=== PATIENT | female | born 1945 | race Caucasian/White ===

== ENCOUNTER 2020-01-14 12:16 | Emergency (ER) | payer MEDICARE, SELFPAY ==
[2020-01-14 12:38] VITALS: BP 153/75; PULSE 56; RESP 12; TEMP 36.6; O2SAT 97; BMI 49.5
--- NOTE | 2020-01-14 12:44 | ED_ITS ---
Entered by Yenni Castanon, acting as scribe for Troy Calloway DO HPI - URI/Sore Throat General: Chief Complaint: Upper Respiratory Infection Stated Complaint: cough Time Seen by Provider: 01/14/20 12:37 Source: patient Mode of arrival: ambulatory Limitations: no limitations History of Present Illness: HPI Narrative: 74 yo Female presents to ED with complaint of cough and shortness of breath. Pt states that she has been coughing up green sputum and some blood tinged sputum a couple of times. Pt denies any fever or sore throat. Pt states that she is on blood thinners and she is afraid that her hard coughing might cause her to bust a blood vessel or cause an aneurysm. Pt states that she has had nausea and diarrhea but no vomiting. MD elicited complaint: cough Onset (ago): day(s) Consistency: constant Description of mucous: green Able to tolerate fluids by mouth: Yes Exacerbating factors: nothing Relieving factors: nothing Associated symptoms: Reports cough, diarrhea, nausea and short of breath; Deny chills, fever(s), nasal congestion, rhinorrhea, sore throat or vomiting Treatments prior to arrival: none Review of Systems General: Reports: 10 or more systems reviewed and unremarkable except in HPI and below Const: Denies: fever or chills ENMT: Denies: nasal congestion Resp: Reports: shortness of breath, productive cough and coughing up blood GI: Reports: nausea and diarrhea; Denies: vomiting [facility] ED PFSH: Medical History (Updated 01/14/20 @ 14:36 by Troy Calloway DO) Afib Diverticulitis Fibromyalgia HTN (hypertension) Sinus bradycardia Surgical History (Updated 01/14/20 @ 12:57 by Yenni Castanon) History of appendectomy History of colonoscopy History of hysterectomy Social History Smoking and tobacco status: never smoked Physical Exam Const: COMMON NORMALS: no apparent distress, average body habitus, oriented x3, no limitations, healthy appearing, alert and well nourished HENMT: COMMON NORMALS: normocephalic, head/scalp atraumatic, hearing grossly normal bilaterally, external ears normal, EAC's normal, TM's normal bilaterally, external nose normal, nasal mucous membranes and turbinates normal, moist oral mucous membranes, oropharynx normal, dentition normal and gingiva normal HEAD & SCALP: normocephalic and atraumatic NOSE: external nose normal and nasal mucous membranes and turbinates normal EXTERNAL EAR: Yes external ears normal EXTERNAL AUDITORY CANAL: EAC's normal TYMPANIC MEMBRANE: TM's normal bilaterally THROAT: posterior oropharynx abnormal erythema Eye: COMMON NORMALS: PERRL, EOMs intact bilaterally, conjunctivae normal, no scleral icterus, no papilledema, normal visual bullard by confrontation and fundi normal bilaterally CONJUNCTIVA: Yes conjunctivae normal PUPIL: Yes PERRL DIRECT OPHTHALMOSCOPY: Yes no papilledema and Yes fundi normal bilaterally Neck/C-Spine: COMMON NORMALS: full ROM, no lymphadenopathy, supple, no meningeal signs, no JVD, thyroid normal and no carotid bruits THYROID: thyroid normal Chest: COMMONS NORMALS: inspection of chest normal and palpation of chest normal Resp: COMMON NORMALS: normal respiratory effort, no retractions, no use of accessory muscles, clear to auscultation bilaterally and percussion normal AUSCULTATION: clear to auscultation bilaterally PERCUSSION: percussion normal Cardio: COMMON NORMALS: no JVD, regular rate, regular rhythm, S1 normal heart sound, S2 normal heart sound, no gallops, no clicks, no murmurs, no rub and peripheral pulses 2+ throughout RATE: regular rate RHYTHM: regular rhythm HEART SOUNDS: S1 normal and S2 normal PERIPHERAL PULSES: pulses 2+ throughout GI: COMMON NORMALS: normal to inspection, nondistended, normoactive bowel sounds, soft to palpation, non-tender, no hepatosplenomegaly, no masses and no bruits PALPATION: Yes soft and Yes no hepatosplenomegaly : COMMON NORMALS: Yes no CVA tenderness and Yes external appearance normal BLADDER/KIDNEY EXAM: Yes no CVA tenderness Back/Pelvis: COMMON NORMALS: no CVA tenderness, thoracic and lumbar spine normal to inspection, no thoracic nor lumbar tenderness, thoraco-lumbar ROM normal and straight leg raise negative bilaterally Extremity: COMMON NORMALS: normal to inspection, full ROM, normal capillary refill, no joint enlargement, no clubbing, cyanosis or edema, no calf tenderness and no pedal edema Neuro: COMMON NORMALS: oriented x3 SENSORIUM/ORIENTATION: Yes alert MENINGEAL SIGNS: Yes no meningeal signs Skin: COMMON NORMALS: no rashes or lesions noted, no wounds, skin turgor normal, no jaundice, no petechiae and no mottling GENERAL SKIN EXAM: no rashes or lesions noted and turgor normal Course Vital Signs: Vital signs: Vital Signs Temperature 97.8 F 01/14/20 12:38 Pulse Rate 58 L 01/14/20 13:39 Respiratory Rate 18 01/14/20 13:39 Blood Pressure 153/75 01/14/20 12:38 Pulse Oximetry 95 01/14/20 13:39 MDM - URI/Sore Throat Lab Data: Labs: Lab Results 01/14/20 01/14/20 01/14/20 Range/Units 13:10 13:10 13:40 WBC 7.2 (4.0-10.0) 10^3/ uL RBC 4.13 (4.1-5.3) 10^6/u L Hgb 12.5 (11.5-15.3) g/dL Hct 40.9 (37.0-47.0) % MCV 99.0 (81-99) fL MCH 30.3 (28.0-34.0) pg MCHC 30.6 (30.0-36.0) g/dL RDW 13.5 (12.1-15.1) % Plt Count 214 (130-400) 10^3/c mm MPV 9.4 (7.4-10.4) fL Neut % (Auto) 47.3 % Lymph % (Auto) 37.8 % [place] % (Auto) 10.8 % Eos % (Auto) 3.5 % Baso % (Auto) 0.3 % Neut # (Auto) 3.4 (1.8-7.7) 10^3/u L Lymph # (Auto) 2.7 (0.8-4.8) 10^3/u L [place] # (Auto) 0.8 (0.2-0.9) 10^3/u L Eos # (Auto) 0.3 (0.0-0.8) 10^3/u L Baso # (Auto) 0.0 (0.0-0.1) 10^3/u L Nucleated RBC % (a uto) 0 % Nucleated RBCs # 0.0 /100WBC Sodium 141 (136-145) mmol/L Potassium 4.4 (3.5-5.1) mmol/L Chloride 104 (98-107) mmol/L Carbon Dioxide 28 (22-29) mmol/L Anion Gap 13.4 (5-19) BUN 18 (8-23) mg/dL Creatinine 1.2 H (0.5-0.9) mg/dL Glucose 85 (65-115) mg/dL Calculated Osmolal ity 288 (285-295) mOsm/k g Calcium 9.3 (8.5-10.5) mg/dL Total Bilirubin 0.3 (0.15-1.2) mg/dL AST 19 (0-32) U/L ALT 19 (0-33) U/L Alkaline Phosphata se 74 (35-105) IU/L NT-Pro-B Natriuret Pep 249 H (0-125) pg/mL Total Protein 7.6 (6.6-8.7) g/dL Albumin 3.9 (3.5-5.2) g/dL Globulin 3.7 (1.3-4.6) g/dL Influenza Type A A g Negative (Negative) POC Influenza B Ag Negative (Negative) Imaging Data^: CXR: Radiologist's impression: [address] [address] XRay Report Signed Patient: Sandra Mcgrath #: [id number] : 8Acct#:[id number] Age/Sex: 74 / FADM Date: 01/14/20 [facility] Attending Dr: Ordering Provider/Ordering MD: Troy Calloway DO Date of Service: 01/14/20 Procedure(s): XR chest 1V portable [id number] Accession Number(s): [id number] Report Number: [id number] PROCEDURE INFORMATION: Exam: XR Chest, 1 View Exam date and time: 01/14/2020 1:49 PM Age: 74 years old Clinical indication: Cough; Additional info: Productive cough TECHNIQUE: Imaging protocol: XR of the chest Views: 1 view. COMPARISON: CR Chest 2 views* [id number] 04/20/2018 1:11 PM FINDINGS: Lungs: Hazy patchy right lower lobe infiltrates or atelectasis/air trapping. Pleural space: No pleural effusion. No pneumothorax. Heart/Mediastinum: No cardiomegaly. Bones/joints: No acute fracture. XR/XR chest 1V portable [id number] IMPRESSION: Hazy patchy right lower lobe infiltrates or atelectasis/air trapping. Dictated By:Allyson Castaneda MD Signed By:Allyson Castaneda MDSigned Date/Time:01/14/201414 DD/ 13 Discharge Plan Discharge Patient Disposition: Home, Self-Care Clinical Impression: Bronchitis, Atypical pneumonia Upper respiratory infection Qualifiers: URI type: unspecified URI Qualified Code(s): J06.9 - Acute upper respiratory infection, unspecified Condition: Stable Prescriptions: New Bactrim DS 800-160 mg tablet 1 tab PO BID 14 Days Qty: 28 RF: 0 albuterol sulfate 90 mcg/actuation HFA aerosol inhaler 2 inh INHALATION Q6H PRN (Reason: shortness of breath or wheezing) Qty: 8.5 RF: 0 No Action bupropion HCl 150 mg tablet sustained-release 12 hr 150 mg PO DAILY RF: 0 Zyrtec 10 mg Tablet 10 mg PO DAILY RF: 0 lamotrigine 25 mg tablet 50 mg PO BID RF: 0 pravastatin 80 mg tablet 80 mg PO BEDTIME RF: 0 propafenone 225 mg tablet 225 mg PO TID RF: 0 hydrocodone-acetaminophen 7.5-325 mg tablet 1 tab PO BID RF: 0 losartan 25 mg tablet 25 mg PO DAILY RF: 0 gabapentin 300 mg capsule See Rx Instructions .ROUTE .COMPLEX RF: 0 metoprolol tartrate 25 mg tablet 12.5 mg PO BID RF: 0 Pradaxa 150 mg capsule 150 mg PO BID RF: 0 Discharge Orders: Discharge Order (Routine); Ordered 01/14/20 Ordered By: Troy Calloway Referrals: Barbara Scott NP [Family Provider] - Coding Level of Care Code ED Client Support Coordinator for Chg Fwd Exam Comprehensive The documentation recorded by the Lg jeffrey Carmen, accurately reflects the service I personally performed and the decisions made by Brodie lópez Donald P, DO Jan 14, 2020 12:16
[2020-01-14 12:49] VITALS: O2SAT 96
--- NOTE | 2020-01-14 12:53 | XRR_ITS ---
PROCEDURE INFORMATION: Exam: XR Chest, 1 View Exam date and time: 01/14/2020 1:49 PM Age: 74 years old Clinical indication: Cough; Additional info: Productive cough TECHNIQUE: Imaging protocol: XR of the chest Views: 1 view. COMPARISON: CR Chest 2 views* [id number] 04/20/2018 1:11 PM FINDINGS: Lungs: Hazy patchy right lower lobe infiltrates or atelectasis/air trapping. Pleural space: No pleural effusion. No pneumothorax. Heart/Mediastinum: No cardiomegaly. Bones/joints: No acute fracture. XR/XR chest 1V portable [id number] IMPRESSION: Hazy patchy right lower lobe infiltrates or atelectasis/air trapping.
--- NOTE | 2020-01-14 12:53 | PC.NURSE ---
pt reports generalized thoracic and body pain 5/10
[2020-01-14] MEDS: sodium chloride 0.9% 500 ML 999 ML IV (13:17)
[2020-01-14 13:23] LABS: Basophils % 0.3 %; Eosinophils # 0.3 10^3/uL (0.0-0.8); Eosinophils % 3.5 %; Hematocrit 40.9 % (37.0-47.0); Hemoglobin 12.5 g/dL (11.5-15.3); Lymphocytes # 2.7 10^3/uL (0.8-4.8); Lymphocytes % 37.8 %; Mean Corpuscular HGB Conc 30.6 g/dL (30.0-36.0); Mean Corpuscular Hemoglobin 30.3 pg (28.0-34.0); Mean Platelet Volume 9.4 fL (7.4-10.4); Monocytes # 0.8 10^3/uL (0.2-0.9); Monocytes % 10.8 %; Neutrophils # 3.4 10^3/uL (1.8-7.7); Neutrophils % 47.3 %; Nucleated Red Blood Cells % 0 %; Platelet Count 214 10^3/cmm (130-400); Red Blood Count 4.13 10^6/uL (4.1-5.3); Red Cell Distribution Width 13.5 % (12.1-15.1); White Blood Count 7.2 10^3/uL (4.0-10.0)
[2020-01-14 13:32] VITALS: PULSE 50; RESP 18; O2SAT 94
[2020-01-14] MEDS: ipratropium-albuterol 3 mL Neb INHALATION (13:32)
[2020-01-14 13:39] VITALS: PULSE 58; RESP 18; O2SAT 95
[2020-01-14 13:49] LABS: Albumin Level 3.9 g/dL (3.5-5.2); Alkaline Phosphatase 74 IU/L (35-105); Anion Gap 13.4 (5-19); Aspartate Amino Transferase 19 U/L (0-32); Blood Urea Nitrogen 18 mg/dL (8-23); Calcium 9.3 mg/dL (8.5-10.5); Carbon Dioxide 28 mmol/L (22-29); Chloride 104 mmol/L (98-107); Globulin 3.7 g/dL (1.3-4.6); Glucose 85 mg/dL (65-115); NT Pro B Type Natriuretic Pept 249 pg/mL (0-125); Osmolality Calculated 288 mOsm/kg (285-295); Potassium 4.4 mmol/L (3.5-5.1); Sodium 141 mmol/L (136-145); Total Bilirubin 0.3 mg/dL (0.15-1.2); Total Protein 7.6 g/dL (6.6-8.7)
[2020-01-14 13:59] LABS: Alanine Aminotransferase 19 U/L (0-33)
[2020-01-14 14:20] LABS: Influenza A by IFA Negative (Negative); Influenza B by IFA Negative (Negative)
[2020-01-14 14:55] VITALS: BP 142/54; PULSE 52; O2SAT 93
== END 2020-01-14 14:55 | disposition home or self-care (01) ==
PROVIDERS: Emergency Provider Family Medicine; Family Provider Nurse Practitioner Family
DX: J18.9 Pneumonia, unspecified organism (principal); J40 Bronchitis, not specified as acute or chronic; J06.9 Acute upper respiratory infection, unspecified; I48.91 Unspecified atrial fibrillation; I10 Essential (primary) hypertension; Z79.01 Long term (current) use of anticoagulants
CPT/HCPCS: 12345; 36415; 71045; 80053; 83880; 85025; 87040; 87804; 94640; 96360; 96361; 96374; 99283; 99284; J2930; J7040

== ENCOUNTER → 2020-06-03 15:09 | Outpatient (BNVA) | payer MEDICARE, SELFPAY | PROVIDERS: Family Provider Nurse Practitioner Family; Visit Provider Dermatology | DX: L82.1 Other seborrheic keratosis (principal); D18.01 Hemangioma of skin and subcutaneous tissue; L70.8 Other acne; Z12.83 Encounter for screening for malignant neoplasm of skin; Z85.828 Personal history of other malignant neoplasm of skin | CPT/HCPCS: 10040; 99203 ==

== ENCOUNTER 2021-02-07 08:03 | Inpatient (IN) | payer MEDICARE, SELFPAY ==
[2021-02-07] VITALS (79 sets, daily range): BP systolic 92–135; BP diastolic 33–75; PULSE 46–79; RESP 14–23; TEMP 36.6–36.8; O2SAT 83–100; BMI 44.6
--- NOTE | 2021-02-07 08:15 | ECG_ITS ---
[facility] Test Date: 2021-02-07 Pat Name: Sandra Mcgrath Department: Room: [facility]09 Gender: Female R D Internship: : 1945 Requested By: Desmond Tyler Order Number: [id number] Reading MD: PHILL GRANGER Measurements Intervals [place] Rate: 52 P: 67 ND: 171 QRS: 76 QRSD: 97 T: 60 QT: 498 QTc: 467 Interpretive Statements SINUS BRADYCARDIA ST DEVIATION AND MODERATE T-WAVE ABNORMALITY, CONSIDER ANTERIOR ISCHEMIA [-0.1+ mV T WAVE IN V3/V4] No previous ECG available for comparison Electronically Signed On 02-07-2021 20:13:54 CDT by PHILL GRANGER [id number] f
--- NOTE | 2021-02-07 08:22 | W.ED.CHESTPA ---
HPI - Chest Pain General: Chief Complaint: Chest Pain Stated Complaint: CP/SOB Time Seen by Provider: 02/07/21 08:14 History of Present Illness: HPI narrative: 75 yo male presents complaints of chest pain radiating to her shoulders into her back that actually began yesterday this morning it woke her up from sleep she was cool and diaphoretic when EMS first encountered her with a heart rate in 39 and a blood pressure 90s over 40s patient was given half milligram of atropine did have improvement provement she has chest pain in the anterior chest wall and when she arrived here is complaining of pain everywhere. Pain is mildly reproducible with palpation across anterior chest. She states few years ago she had an angiogram done and was told it was negative. She is otherwise not had any known coronary artery disease and is nondiabetic. MD complaint: chest pain Onset (ago): minute(s) Timing of current episode: constant Onset: during rest Pain location: left chest Pain radiation: left arm Severity: severe Relieving factors: nothing Exacerbating factors: exertion and palpation Associated symptoms: Reports dyspnea and nausea; Deny abdominal pain, diaphoresis, fever(s), leg edema, palpitations, sense of impending doom, syncope or vomiting Treatment prior to arrival: none Review of Systems Const: Denies: fever(s) or diaphoresis ENMT: Denies: throat pain, ear or mastoid pain, nasal discharge or nasal congestion Card: Denies: palpitations or syncope Resp: Reports: dyspnea GI: Reports: nausea; Denies: abdominal pain or vomiting : Denies: flank pain, difficulty voiding, dysuria, urinary frequency or urinary urgency Skin/Breast: Denies: rash or pruritus PFSH ED PFSH: Medical History Afib Diverticulitis Fibromyalgia History of nonmelanoma skin cancer HTN (hypertension) Sinus bradycardia Surgical History History of appendectomy History of colonoscopy History of hysterectomy Social History Smoking and tobacco status: never smoked Physical Exam Const: COMMON NORMALS: no acute distress GENERAL APPEARANCE: cooperative and comfortable ORIENTATION/CONSCIOUSNESS: Yes awake, Yes oriented to person, Yes oriented to place and Yes oriented to time HENMT: COMMON NORMALS: normocephalic, atraumatic and hearing grossly normal bilaterally HEAD & SCALP: normocephalic and atraumatic Neck/C-Spine: COMMON NORMALS: no JVD Lymph: LYMPHATIC: no lymphadenopathy noted and no lymphedema noted Resp: COMMON NORMALS: normal respiratory effort, No retractions, No use of accessory muscles and clear to auscultation bilaterally AUSCULTATION: clear to auscultation bilaterally Cardio: COMMON NORMALS: no JVD, regular rate, regular rhythm and No murmurs present (Cardio) RATE: regular rate RHYTHM: regular rhythm GI: COMMON NORMALS: Soft to palpation and No hepatosplenomegaly present AUSCULTATION: Yes normoactive bowel sounds PALPATION: Yes Soft to palpation, No Tenderness to palpation present (GI), No Guarding due to palpation present (GI) and Yes No hepatosplenomegaly present Extremity: COMMON NORMALS: normal to inspection, capillary refill normal, no clubbing, cyanosis or edema, no calf tenderness and no pedal edema Neuro: SENSORIUM/ORIENTATION: Yes oriented to person, Yes oriented to place and Yes oriented to time Skin: COMMON NORMALS: no rashes or lesions noted GENERAL SKIN EXAM: no rashes or lesions noted Course Vital Signs: Vital signs: Vital Signs Temperature 97.9 F 02/07/21 08:04 Pulse Rate 55 L 02/07/21 10:08 Respiratory Rate 18 02/07/21 10:08 Blood Pressure 115/63 02/07/21 10:08 Pulse Oximetry 94 02/07/21 10:08 MDM - Chest Pain MDM Narrative: Medical decision making narrative: Troponin is elevated to 678. Patient given morphine with good relief of symptoms she not taken her Pradaxa propafenone or her metoprolol since yesterday. We will get a go ahead and heparinize her. She has good relief of pain with the morphine. Concerned about giving her nitro given the bradycardia and hypotension suspect that she would become profoundly hypotensive with nitroglycerin. Consuelo Smyth and with Dr. Benito Oliver is been consulted patient be admitted to the ICU. Lab Data: Labs: Lab Results 02/07/21 02/07/21 02/07/21 Range/Units 08:20 08:20 08:20 WBC 7.8 (4.0-10.0) 10^3/ uL RBC 3.92 L (4.1-5.3) 10^6/u L Hgb 12.1 (11.5-15.3) g/dL Hct 38.1 (37.0-47.0) % MCV 97.2 (81-99) fL MCH 30.9 (28.0-34.0) pg MCHC 31.8 (30.0-36.0) g/dL RDW 13.2 (12.1-15.1) % Plt Count 183 (130-400) 10^3/c mm MPV 10.2 (7.4-10.4) fL Neut % (Auto) 53.5 % Lymph % (Auto) 35.6 % [place] % (Auto) 9.3 % Eos % (Auto) 1.0 % Baso % (Auto) 0.3 % Neut # (Auto) 4.20 (1.8-7.7) 10^3/u L Lymph # (Auto) 2.8 (0.8-4.8) 10^3/u L [place] # (Auto) 0.7 (0.2-0.9) 10^3/u L Eos # (Auto) 0.1 (0.0-0.8) 10^3/u L Baso # (Auto) 0.0 (0.0-0.1) 10^3/u L Nucleated RBC % (a uto) 0 % Nucleated RBCs # 0.0 /100WBC APTT (23.9-36.7) SECO NDS Sodium 140 (136-145) mmol/L Potassium 3.9 (3.5-5.1) mmol/L Chloride 105 (98-107) mmol/L Carbon Dioxide 25 (22-29) mmol/L Anion Gap 13.9 (5-19) BUN 14 (8-23) mg/dL Creatinine 1.0 H (0.5-0.9) mg/dL GFR Calculation Not Reportable Glucose 115 (65-115) mg/dL Calculated Osmolal ity 291 (285-295) mOsm/k g Calcium 9.3 (8.5-10.5) mg/dL Total Bilirubin 0.5 (0.15-1.2) mg/dL AST 24 (0-32) U/L ALT 11 (0-33) U/L Alkaline Phosphata se 67 (35-105) IU/L Troponin T Baselin e 678 H* (0-10) ng/L Total Protein 6.4 L (6.6-8.7) g/dL Albumin 3.5 (3.5-5.2) g/dL Globulin 2.9 (1.3-4.6) g/dL 02/07/21 Range/Units 08:30 WBC (4.0-10.0) 10^3/ uL RBC (4.1-5.3) 10^6/u L Hgb (11.5-15.3) g/dL Hct (37.0-47.0) % MCV (81-99) fL MCH (28.0-34.0) pg MCHC (30.0-36.0) g/dL RDW (12.1-15.1) % Plt Count (130-400) 10^3/c mm MPV (7.4-10.4) fL Neut % (Auto) % Lymph % (Auto) % [place] % (Auto) % Eos % (Auto) % Baso % (Auto) % Neut # (Auto) (1.8-7.7) 10^3/u L Lymph # (Auto) (0.8-4.8) 10^3/u L [place] # (Auto) (0.2-0.9) 10^3/u L Eos # (Auto) (0.0-0.8) 10^3/u L Baso # (Auto) (0.0-0.1) 10^3/u L Nucleated RBC % (a uto) % Nucleated RBCs # /100WBC APTT 30.3 (23.9-36.7) SECO NDS Sodium (136-145) mmol/L Potassium (3.5-5.1) mmol/L Chloride (98-107) mmol/L Carbon Dioxide (22-29) mmol/L Anion Gap (5-19) BUN (8-23) mg/dL Creatinine (0.5-0.9) mg/dL GFR Calculation Glucose (65-115) mg/dL Calculated Osmolal ity (285-295) mOsm/k g Calcium (8.5-10.5) mg/dL Total Bilirubin (0.15-1.2) mg/dL AST (0-32) U/L ALT (0-33) U/L Alkaline Phosphata se (35-105) IU/L Troponin T Baselin e (0-10) ng/L Total Protein (6.6-8.7) g/dL Albumin (3.5-5.2) g/dL Globulin (1.3-4.6) g/dL Discharge Plan Discharge Patient Disposition: Admitted As Inpatient Admit Provider: Shahzad Novoa Clinical Impression: Non-ST elevation [place] (NSTEMI) Condition: Stable Coding Level of Care Code ED Air Conditioning Insulation Installer for g Fwd Exam Comprehensive
[2021-02-07 08:33] LABS: Basophils % 0.3 %; Eosinophils # 0.1 10^3/uL (0.0-0.8); Hematocrit 38.1 % (37.0-47.0); Hemoglobin 12.1 g/dL (11.5-15.3); Lymphocytes # 2.8 10^3/uL (0.8-4.8); Lymphocytes % 35.6 %; Mean Corpuscular HGB Conc 31.8 g/dL (30.0-36.0); Mean Corpuscular Hemoglobin 30.9 pg (28.0-34.0); Mean Corpuscular Volume 97.2 fL (81-99); Mean Platelet Volume 10.2 fL (7.4-10.4); Monocytes # 0.7 10^3/uL (0.2-0.9); Monocytes % 9.3 %; Neutrophils % 53.5 %; Nucleated Red Blood Cells % 0 %; Platelet Count 183 10^3/cmm (130-400); Red Blood Count 3.92 10^6/uL (4.1-5.3); Red Cell Distribution Width 13.2 % (12.1-15.1); White Blood Count 7.8 10^3/uL (4.0-10.0)
[2021-02-07 08:47] LABS: Alanine Aminotransferase 11 U/L (0-33); Albumin Level 3.5 g/dL (3.5-5.2); Alkaline Phosphatase 67 IU/L (35-105); Aspartate Amino Transferase 24 U/L (0-32); Blood Urea Nitrogen 14 mg/dL (8-23); Calcium 9.3 mg/dL (8.5-10.5); Carbon Dioxide 25 mmol/L (22-29); Chloride 105 mmol/L (98-107); Globulin 2.9 g/dL (1.3-4.6); Glucose 115 mg/dL (65-115); Osmolality Calculated 291 mOsm/kg (285-295); Sodium 140 mmol/L (136-145); Total Bilirubin 0.5 mg/dL (0.15-1.2); Total Protein 6.4 g/dL (6.6-8.7)
[2021-02-07 08:53] LABS: Anion Gap 13.9 (5-19); Potassium 3.9 mmol/L (3.5-5.1)
--- NOTE | 2021-02-07 08:53 | XR_ITS ---
WS: [id number] PORTABLE CHEST HISTORY: chest pain COMPARISON: 01/14/2020 Mild diffuse interstitial thickening and edema. Mild chronic emphysematous changes. No consolidation or pneumonia. No pleural effusion or pneumothorax. Cardiac size: Mildly enlarged cardiac silhouette. Mediastinum/Aorta: Mild atherosclerosis aorta. No osseous abnormality seen. XR/XR chest 1V portable [id number] IMPRESSION: Mild interstitial edema. No pneumonia.
[2021-02-07 08:54] LABS: Troponin(5th) Baseline 678 ng/L (0-10)
[2021-02-07] MEDS: clopidogrel 300 mg Tablet 600 MG PO (09:03)
[2021-02-07] MEDS: heparin 5,000 unit/mL INJ 1 mL 4000 UNIT IVP (09:04)
[2021-02-07] MEDS: aspirin 81 mg Chew Tablet 324 MG PO (09:04)
[2021-02-07 09:07] LABS: Partial Thromboplastin Time 30.3 SECONDS (23.9-36.7)
[2021-02-07] MEDS: heparin drip 25,000 UNIT/500 ML PREMIX 35.2 UNIT IV (09:10)
[2021-02-07] MEDS: morphine 4 mg/mL SDV 1 mL IVP (09:17)
--- NOTE | 2021-02-07 10:15 | ECG_ITS ---
[facility] Test Date: 2021-02-07 Pat Name: Sandra Mcgrath Department: Room: [facility]09 Gender: Female Laboratory Analyst: : 1945 Requested By: Desmond Tyler Order Number: [id number] Reading MD: PHILL GRANGER Measurements Intervals [place] Rate: 55 P: 58 AK: 189 QRS: 67 QRSD: 95 T: 80 QT: 497 QTc: 477 Interpretive Statements SINUS BRADYCARDIA WITH SINUS ARRHYTHMIA MODERATE ST DEPRESSION [0.05+ mV ST DEPRESSION] PROLONGED QT INTERVAL Compared to ECG 02/07/2021 08:06:41 ST (T wave) deviation now present Prolonged QT interval now present T-wave abnormality no longer present Possible ischemia no longer present Electronically Signed On 02-07-2021 20:18:59 CDT by PHILL GRANGER [id number]
[2021-02-07 10:51] LABS: Troponin 5 2HR 896.6 ng/L (0-10); Troponin 5 2HR Delta 218.6 ABS# (0-10)
--- NOTE | 2021-02-07 10:57 | PM.HP ---
Providers/Chief Complaint Admitting Physician: Shahzad Novoa MD Primary Care Provider: Barbara Scott NP Chief Complaint: CP/SOB History of Present Illness Sandra Mcgrath is a 75 year old female who presents to the hospital with chest discomfort. She reports she was getting her teeth worked on and tooth pulled yesterday, and required quite a bit of numbing and this was a fairly traumatic process. After she got released from the dentist around 1230 or so in her transition home she started having some chest discomfort. This came and went but eventually went away. She woke back up with it again this morning at 6 AM. She describes it as a sharp pressure in the left side of her chest with radiation down both arms. She states it is associated with shortness of breath as well as nausea. She denied any diaphoresis. She reports it got better with morphine in the emergency department. She has not had chest discomfort like this in the past. She reports no chest discomfort currently. She denies any recent illness with Covid, exposure to Covid, or vaccine for Covid. She has had no fever. She denies any cough, blood in her stool or black or tarry stool. She reports she had an angiogram, [place] at [email or web address] approximately 3 years ago and was told she did not have any flow-limiting disease. Review of Systems General: Reports: 10 or more systems reviewed and unremarkable except in HPI and below Const: Denies: fever(s) or chills Eyes: Denies: change in vision ENMT: Denies: throat pain Card: Reports: chest pain Resp: Reports: dyspnea; Denies: productive cough or non-productive cough GI: Reports: nausea; Denies: abdominal pain : Denies: flank pain Musc: Denies: neck pain Skin/Breast: Denies: rash Neuro: Denies: headache(s) Psych: Reports: depression; Denies: anxiety Endo: Denies: polyuria Uriel/Lymph: Denies: easy bruising All/Imm: Denies: urticaria Medications/Allergies Home Medications Medication Instructions Recorded Confirmed Last Taken Type bupropion HCl 150 mg PO DAILY@2100 01/14/20 02/07/21 02/06/21 History cetirizine [Zyrtec] 10 mg PO DAILY@0900 01/14/20 02/07/21 02/06/21 History dabigatran etexilate [Pradaxa] 150 mg PO BID@01/14/20 02/07/21 02/06/21 History gabapentin See Rx Instructions .ROUTE .COMPLEX 01/14/20 02/07/21 02/06/21 History hydrocodone-acetaminophen 1 tab PO QID PRN 01/14/20 02/07/21 01/14/20 History lamotrigine 50 mg PO BID@01/14/20 02/07/21 02/06/21 History losartan 25 mg PO DAILY@01/14/20 02/07/21 02/06/21 History metoprolol tartrate 12.5 mg PO BID@01/14/20 02/07/21 02/06/21 History propafenone 225 mg PO TID 01/14/20 02/07/21 02/06/21 History amoxicillin 500 mg PO TID 02/07/21 02/07/21 02/06/21 History rosuvastatin [Crestor] 10 mg PO DAILY@209902/07/21 02/07/21 02/06/21 History Allergies Allergy/AdvReac Type Severity Reaction Status Date / Time bacitracin Allergy ALGY-Rash Verified 01/14/20 12:44 [From Neosporin ([id number])] codeine Allergy ADR-Shakine Verified 01/14/20 12:44 ss neomycin Allergy ALGY-Rash Verified 01/14/20 12:44 [From Neosporin ([id number])] petrolatum,white Allergy ALGY-Rash Verified 01/14/20 12:45 [From Petroleum Jelly] polymyxin B Allergy ALGY-Rash Verified 01/14/20 12:44 [From Neosporin ([id number])] PFSH Acute PFSH: Medical History (Updated 02/07/21 @ 11:03 by Shahzad Novoa MD) Afib Carotid artery disease Diverticulitis Fibromyalgia History of nonmelanoma skin cancer HTN (hypertension) Hyperlipidemia Sinus bradycardia Surgical History (Updated 02/07/21 @ 11:00 by Shahzad Novoa MD) History of appendectomy History of colonoscopy History of hysterectomy History of partial colectomy Family History (Updated 02/07/21 @ 11:00 by Shahzad Novoa MD) Other CAD (coronary artery disease) Social History (Updated 02/07/21 @ 11:00 by Shahzad Novoa MD) Smoking and tobacco status: former smoker Alcohol intake: never Vitals/I&O/Wt Last Vital Signs Temp 97.9 F 02/07/21 08:04 Pulse 55 L 02/07/21 10:08 Resp 18 02/07/21 10:08 BP 115/63 02/07/21 10:08 Pulse Ox 94 02/07/21 10:08 Weight last 48 hrs Weight 125.645 kg Physical Exam Narrative: EXAM NARRATIVE: General exam is a white female, in no apparent distress HEENT: Pupils equally round. Oropharynx clear. Neck supple no lymphadenopathy or thyromegaly Cardiovascular bradycardic, regular, no obvious murmur Lungs clear no wheezing or crackles Abdomen is soft obese nontender with positive bowel sounds. No obvious organomegaly was deferred Extremities no cyanosis clubbing or edema, cap refill brisk Skin no rash Neuro no focal deficits. Data : 02/07/21 08:20 02/07/21 08:20 Other data: EKG demonstrates bradycardia with a rate of 52, anterior precordial lead depression as well as lateral changes. No ST elevation. Chest x-ray which I reviewed demonstrates a mild amount of edema, calcified aorta Last echocardiogram August 2018 demonstrated EF of 68% Troponin is elevated at 678, with repeat of 896 with a delta of 219 LFTs are normal A&P Assessment and plan (1) Non-ST elevation [place] (NSTEMI): Full dose anticoagulation with heparin drip Aspirin daily Morphine for breakthrough pain She has been loaded with Plavix in the emergency department Secondary to relative hypotension as well as bradycardia beta-cassidy is contraindicated Statin Check echocardiogram Cardiology consultation Check TSH, magnesium level. We will call from fluid currently as there appears to be slight amount of interstitial edema on chest x-ray. Status: Acute (2) Afib: On propafenone at home, beta-cassidy Hold medicine currently until evaluation by cardiology. Status: Acute (3) HTN (hypertension): Hold medication currently secondary to relative hypotension during this acute event Status: Acute (4) Hyperlipidemia: Continue statin, increase potency Status: Acute Additional A&P Information History of GERD. Pepcid IV for now as n.p.o. Full code Heparin for DVT prophylaxis Attestations Medical Necessity Statement*: Will need greater than 2 midnight stay for evaluation and treatment of non-ST elevation myocardial infarction. Time Spent in Patient Care: Greater than 35 minutes Coding Level of Care Code Acute Type Photography Supervisor for Yanethg Fwd Diagnoses Non-ST elevation [place] (NSTEMI) I21.4 Afib I48.91 HTN (hypertension) I10 Hyperlipidemia E78.5
--- NOTE | 2021-02-07 11:12 | USCV_ITS ---
Alcides Sandra Age: 75 Gender: F : 1945 Exam Date: 02/07/2021 15:39 Ordering Phys: Shahzad Novoa MD Technologist: Lillie Hernandez [place] [facility] [place]: [place]ST PAIN BP: / HR: 86 Rhythm: Sinus Technical Quality: Adequate MEASUREMENTS (Male / Female) Normal Values 2D ECHO LV Diastolic Diameter PLAX 4.3 cm 4.2 - 5.9 / 3.9 - 5.3 cm LV Systolic Diameter PLAX 2.7 cm LV Chamber Size 2.9 cm IVS Diastolic Thickness 1.0 cm 0.6 - 1.0 / 0.6 - 0.9 cm IVS Systolic Thickness 1.5 cm LVPW Diastolic Thickness 2.0 cm 0.6 - 1.0 / 0.6 - 0.9 cm LVPW Systolic Thickness 2.7 cm RV Chamber Size 3.5 cm LVOT Diameter 2.0 cm LV Ejection Fraction 2D Teich 66.3 % LV Ejection Fraction MOD 2C 52.3 % LV Ejection Fraction 2C AL 54.1 % LA Diameter 3.6 cm LA Width 3.4 cm LA Height 4.4 cm RA Width 3.3 cm RA Height 4.1 cm Aorta at Sinotubular Diameter 2.6 cm M-MODE LV Diastolic Diameter MM 5.8 cm 4.2 - 5.9 / 3.9 - 5.3 cm LV Systolic Diameter MM 4.3 cm LV Ejection Fraction MM Teich 52.1 % IVS Diastolic Thickness MM 0.8 cm 0.6 - 1.0 / 0.6 - 0.9 cm IVS Systolic Thickness MM 0.9 cm LVPW Diastolic Thickness MM 1.0 cm 0.6 - 1.0 / 0.6 - 0.9 cm LVPW Systolic Thickness MM 1.2 cm Aortic Annulus Diameter 3.2 cm LA Ao Ratio MM 1.3 MV E Point Septal Separation 0.9 cm DOPPLER AV Peak Velocity 155.3 cm/s LVOT Peak Velocity 124.7 cm/s AV Area Cont Eq vti 2.2 cm squared AV Area Cont Eq pk 2.5 cm squared MV Area PHT 2.5 cm squared Mitral E to A Ratio 1.1 MV E' Velocity 56.5 cm/s Mitral E to MV E' Ratio 11.1 Mitral E to LV E' Lateral Ratio 10.2 Mitral E to LV E' Septal Ratio 12.1 TR Peak Velocity 231.7 cm/s TR Peak Gradient 21.5 mmHg TV Peak E Velocity 50.0 cm/s Right Atrial Pressure 3.0 mmHg Pulmonary Artery Systolic Pressu 24.5 mmHg PV Peak Velocity 73.0 cm/s RV Acceleration Time 0.3 s RV Ejection Time 0.5 s RV AcT/ET 0.5 FINDINGS Left Ventricle Normal left ventricular size. LV systolic function is normal with EF of 55-60%. No regional wall motion abnormalities. Normal diastolic filling pattern. Right Ventricle The right ventricle is normal in size and function. Right Atrium The right atrium is normal in size. Left Atrium The left atrium is normal in size. Mitral Valve Structurally normal mitral valve without significant stenosis or prolapse. There is no mitral regurgitation. Aortic Valve Structurally normal aortic valve without significant sclerosis or stenosis. There is no aortic regurgitation. Tricuspid Valve Structurally normal tricuspid valve without significant stenosis or regurgitation.Insufficient TR jet to calculate RVSP Pulmonic Valve Structurally normal pulmonic valve without significant stenosis. There is no pulmonic regurgitation. Pericardium Normal pericardium without effusion. Aorta Normal ascending aorta dimension. CONCLUSIONS LV systolic function is normal with EF of 55-60% Diastolic function is normal No significant valvular heart disease is noted Compared to prior echo from 08/08/2018, no significant changes are noted Ronak Eckert MD (Electronically Signed) Final Date: 07 February 2021 20:09 S
[2021-02-07 11:41] LABS: Thyroid Stimulating Hormone 3.13 uIU/mL (0.27-4.20)
[2021-02-07] MEDS: famotidine 20 mg/2 mL INJ IVP ×2 (12:03→21:05)
--- NOTE | 2021-02-07 12:13 | XACV_ITS ---
Exam Room: [facility] Ht: 168 cm Wt: 126 kg BSA: 2.49 m2 Gender: Female : 1945 Any Known Allergies: Other Exam Priority: Routine Procedure(s): Procedure Description: Diagnostic procedure Procedure Description: Left Heart Catheterization Procedure Description: Left ventriculography Procedure Description: Miscellaneous Procedure Description: ACT Procedure Description: Coronary Angiography Diagnostic Cath Status: Urgent Diagnostic Findings * No significant disease noted in the Left Main, LAD, Circumflex, or RCA coronary arteries. * Coronary angiography shows right dominance. Conclusions 1. Presentation consistent with [place] ([place] with normal coronary arteries). 2. No significant disease noted in the Left Main, LAD, Circumflex, or RCA coronary arteries. 3. Normal left ventricular systolic function. Ejection fraction of 50%. Recommendations * Add plavix to pradaxa. * Order echocardiogram. * High intensity statin therapy. * Outpatient cardiology follow up. Diagnostic RX Recommendation: medical therapy and/or counseling Ventriculography Ejection Fraction: 50.0 % Pressures Phase:Rest AO : 109 / 44 ( 65 ) @ 8:03:00 AM 124 / 48 ( 82 ) @ 8:15:00 AM 128 / 52 ( 82 ) @ 8:15:00 AM LV : 126 / 5 / @ 8:11:00 AM 130 / 8 / @ 8:15:00 AM 132 / 9 / @ 8:15:00 AM Valves Phase:DefaultPhase AV : 8.0 @ 1:28:24 PM AV Mean Gradient: 9.0 @ 1:28:24 PM Clinical Evaluation EBL: 5mL-10mL Procedural Details Procedure Consent Obtained. Pre-Procedure Time Out. Identified patient by full name and date of as verbalized by the patient/guarantor. Does the consent match the physician's order: Yes. Accurate & Complete Informed Consent: Yes. Inpatient/Outpatient History & Physical on Chart: Yes. If H&P is completed, is and addenduem needed: No; If yes, is the addendum complete: N/A. Visualize and Verify Site with Patient/Guarantor: N/A. Relevant Radiology Images available: N/A. Pre-op teaching completed and patient verbalized understanding. The risks, benefits, and alternatives of sedation and/or procedure were discussed by physician. The patient agrees to continue. Procedure started. [facility] Clinical Fraility Score: 3: Managing Well. 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 Chest Pain Symptom Assessment: Typical Angina Symptoms. Cardiovascular Instability: No. Correct patient, site and procedure confirmed by cath team. PERRLA. Strong, equal hand store group manager bilaterally. Lungs clear x 5 lobes. IV Site on Arrival: 20 gauge in the right anticubital. IV Fluids: 0.9% NaCl at KVO. 0 mL infused prior to computer lab assistant. Pre Procedural Pulses: bilateral dorsalis pedis was Doppled. Pre Procedural Pulses: bilateral posterior tibial was Doppled. Pre Procedural Pulses: bilateral radial was 2+. Oxygen started at 2liters/min via nasal canula. bilateral groins was prepped with chloroprep then draped in the usual sterile fashion. right radial was prepped with chloroprep then draped in the usual sterile fashion. Physician arrived. Equipment: 6F - Radial. Cardiac Cath Pack. ACIST Manifold Kit Model BT 2000. Heparinized Saline (2 units/mL), 1000 mL bag. Baseline sample Acquired. HR: 54 BPM. Physician scrubbed in. Immediate Pre-Procedure Time Out. Correct Patient: Yes; Correct Procedure: Yes; Correct Site: Yes; Correct Patient Position: Yes; Correct Supplies: Yes; Dried Flammable Prep: Yes; Blood Products Available: N/A;. Lidocaine 1% infiltrated to the right radial. Arterial access obtained. A 5 montserratian TIG catheter in over wire. ACT drawn. Results 156 seconds. Therapeutic limits - pre-heparin administration 90-150 seconds and monitoring heparin during a vascular procedure >250 seconds. Multiple views taken of left coronary artery. Catheter redirected to the RCA. Multiple views taken of right coronary artery. Catheter removed over the exchange wire. A 5 montserratian Angled Pig catheter in over wire. EDP Sample taken: LV 126/5,23; HR: 57 BPM; SpO2: 97%. LV gram performed in JUÁREZ @ 10 mL/second for a total of 30 mL. LV gram performed in JUÁREZ @ 18 mL/second for a total of 36 mL. EDP Sample taken: LV 130/8,24; HR: 56 BPM; SpO2: 97%. Pullback taken: LV 132/9,25; AO 124/48(82); Mean: 9mmHg, Peak to Peak: 8mmHg, SEP: 26sec/min; HR: 61 BPM; SpO2: 99%. Catheter removed over the exchange wire. Physician scrubbed out. A TR Band was successful obtaining hemostatsis at the Right Radial artery insertion site. TR band placed. Hemostasis obtained. Post Procedure: Pulses reassessed and unchanged. PERRLA. Strong, equal hand store group manager bilaterally. No VTE prophylaxis required. Medication's Wasted: Lidocaine 1% = 16 mL. Medication's Wasted: Heparin = 4000 units. Medication's Wasted: Nitro = 49.9 mg. Medication's Wasted: Other = fentanyl 50 mcg. Total IV fluids: 250 mL. Contrast type used: Omnipaque 300 mgI/mL, 500 mL bottle. Post-op diagnosis: non obstructive CAD/[place] with normal coronary arteries. Complications: none. Estimated blood loss: 5mL-10mL. Procedure completed. Patient transferred by bed to ICU. Vital chart was stopped. Access Site Site: Right Radial artery Sheath Size: 5 Fr Hemostasis Method: TR Band Hemostasis Success: Successful Procedure Medications Start: 12:50 PM Stop: 12:50 PM Medication: Versed Amount: 1 mg Route: I.V. Start: 12:50 PM Stop: 12:50 PM Medication: Fentanyl Amount: 25 mcg Route: I.V. Start: 12:59 PM Stop: 12:59 PM Medication: 0.9% Saline Amount: 250 ml Route: I.V. bolus Start: 1:00 PM Stop: 1:00 PM Medication: Nitrogylcerin Amount: 100 mcg Route: I.A. Start: 1:00 PM Stop: 1:00 PM Medication: Versed Amount: 1 mg Route: I.V. Start: 1:07 PM Stop: 1:07 PM Medication: Heparin Amount: 2000 units Route: I.V. Start: 1:10 PM Stop: 1:10 PM Medication: Fentanyl Amount: 25 mcg Route: I.V. I, the attending physician, have reviewed and verified all procedure medications. Yes, all medications given per verbal order History/Risk Factors Hypertension: Yes Dyslipidemia: Yes Peripheral Arterial Disease (PAD): No Myocardial Infarction ([place]): No Obesity: No Renal Disease: No Tobacco Use: Former Prior Interventions PCI: No CABG: No Valve Surgery: No Report Signatures Finalized by Ronak Eckert MD on 02/22/2021 01:27 PM
--- NOTE | 2021-02-07 12:50 | P.CONIM_ITS ---
Providers/Reason For Consult Consulting Physican/Specialty*: Ronak Eckert MD/ Cardiology Reason for Consult*: NSTEMI Requesting Physcian: Shahzad Novoa Attending Physician: Shahzad Novoa MD Primary Care Provider: Barbara Scott NP History of Present Illness History of Present Illness 75 year old female with history of A. fib on Pradaxa who presented to the hospital with chest discomfort. She has a dental procedure yesterday and was in significant pain with the procedure. While going home she started noticing chest discomfort. She kept on having on and off chest pain and woke up early this morning with severe substernal chest pain. It was on the left side and radiated down both arms. It was associated with shortness of breath and nausea. After receiving morphine in the ER the chest pain got better. She had a significantly elevated troponin of more than 600 which trended up to 900. EKG showed sinus bradycardia. According to patient she had a prior cath done several years ago at [facility] in [place] and was told that she did not have any significant coronary artery disease. Review of Systems General: Reports: 10 or more systems reviewed and unremarkable except in HPI and below Const: Denies: fever(s) or chills Eyes: Denies: change in vision ENMT: Denies: throat pain Card: Reports: chest pain Resp: Reports: dyspnea; Denies: productive cough or non-productive cough GI: Reports: nausea; Denies: abdominal pain : Denies: flank pain Musc: Denies: neck pain Skin/Breast: Denies: rash Neuro: Denies: headache(s) Psych: Reports: depression; Denies: anxiety Endo: Denies: polyuria Uriel/Lymph: Denies: easy bruising All/Imm: Denies: urticaria Meds/Allergies Home Medications and Allergies Home Medications Medication Instructions Recorded Confirmed Last Taken Type Pradaxa 150 mg PO BID@01/14/20 02/07/21 02/06/21 History bupropion HCl 150 mg PO DAILY@2100 01/14/20 02/07/21 02/06/21 History cetirizine [Zyrtec] 10 mg PO DAILY@0900 01/14/20 02/07/21 02/06/21 History gabapentin See Rx Instructions .ROUTE .COMPLEX 01/14/20 02/07/21 02/06/21 History hydrocodone-acetaminophen 1 tab PO QID PRN 01/14/20 02/07/21 01/14/20 History lamotrigine 50 mg PO BID@01/14/20 02/07/21 02/06/21 History losartan 25 mg PO DAILY@09 01/14/20 02/07/21 02/06/21 History metoprolol tartrate 12.5 mg PO BID@01/14/20 02/07/21 02/06/21 History propafenone 225 mg PO TID 01/14/20 02/07/21 02/06/21 History amoxicillin 500 mg PO TID 02/07/21 02/07/21 02/06/21 History Crestor 20 mg PO DAILY@2100 #0 tab 02/08/21 02/07/21 02/06/21 Rx clopidogrel [Plavix] 75 mg PO DAILY 30 Days #30 tab 02/08/21 Unknown Rx Allergies Allergy/AdvReac Type Severity Reaction Status Date / Time bacitracin Allergy ALGY-Rash Verified 01/14/20 12:44 [From Neosporin ([id number])] codeine Allergy ADR-Shakine Verified 01/14/20 12:44 ss neomycin Allergy ALGY-Rash Verified 01/14/20 12:44 [From Neosporin ([id number])] petrolatum,white Allergy ALGY-Rash Verified 01/14/20 12:45 [From Petroleum Jelly] polymyxin B Allergy ALGY-Rash Verified 01/14/20 12:44 [From Neosporin ([id number])] Current Medications Current Medications Generic Name Dose Route Start Last Admin Trade Name Freq PRN Reason Stop Dose Admin Famotidine 20 mg 02/07/21 12:00 02/07/21 12:03 Famotidine 20 Mg/2 Ml Inj IVP 20 mg 0900,2100 TORREY Administration Heparin Sodium/Sodium Chloride 25,000 unit in 500 mls @ 0 mls/hr 02/07/21 09:00 02/07/21 09:10 Heparin Drip IV 14 unit/kg/hr .Q0M TORREY 35.2 mls/hr Administration Protocol Per Protocol PFSH Acute PFSH: Medical History Afib Carotid artery disease Diverticulitis Fibromyalgia History of nonmelanoma skin cancer HTN (hypertension) Hyperlipidemia Non-ST elevation [place] (NSTEMI) Sinus bradycardia Surgical History History of appendectomy History of colonoscopy History of hysterectomy History of partial colectomy Family History Other CAD (coronary artery disease) Social History Smoking and tobacco status: former smoker Alcohol intake: never Vitals/I&O/Wt Last Vital Signs Temp 98.3 F 02/07/21 10:55 Pulse 54 L 02/07/21 12:20 Resp 18 02/07/21 10:08 BP 107/36 02/07/21 12:20 Pulse Ox 93 02/07/21 12:20 Weight last 48 hrs Weight 277 lb Physical Exam Narrative: EXAM NARRATIVE: GENERAL: Awake, alert, oriented, in no acute distress. [] HEENT: Normocephalic, atraumatic, PERRLA. [] CHEST: Clear to auscultation bilaterally. [] CVS: S1, S2 normal. No murmur, rubs, gallops. Peripheral pulses palpable. [] ABDOMEN: Soft, nontender. Nondistended. Bowel sounds heard. [] NEUROVASCULAR: Awake, alert. Power 5/5 all extremities. DTR+ [] EXTREMITIES: No edema. [] A&P Assessment and plan (1) Non-ST elevation [place] (NSTEMI): Status: Acute (2) Afib: Status: Acute (3) Carotid artery disease: Status: Acute (4) HTN (hypertension): Status: Acute (5) Hyperlipidemia: Status: Acute (6) Sinus bradycardia: Status: Acute Patient has non-ST elevation [place] with a elevated troponin at significant delta. She had typical chest pain. We will proceed with left heart cath with possible percutaneous coronary intervention. Patient is n.p.o. Risks and benefits of the procedure have been discussed with the patient and the family. Patient understands the risks including bleeding, infection, abnormal heart rhythm, kidney function worsening, heart attack, stroke or . They are in agreement with proceeding with the procedure. Continue heparin drip. Continue aspirin and Plavix. Order echocardiogram. Thank you for involving us with care of this patient. We will continue to follow. Please call with questions. Coding Level of Care Code Acute Bondactor Machine Operator for Bella Leon Diagnoses Non-ST elevation [place] (NSTEMI) I21.4 Afib I48.91 Carotid artery disease I77.9 HTN (hypertension) I10 Hyperlipidemia E78.5 Sinus bradycardia R00.1
--- NOTE | 2021-02-07 12:50 | W.PM.OPSUD ---
Surgery/Procedure H&P Update DATE OF PROCEDURE: February 07, 2021 DATE H&P PERFORMED: 02/07/21 H&P UPDATE INFORMATION: I have reviewed H&P completed within last 30 days, I have examined patient prior to procedure and No changes to prior documentation PREOP DIAGNOSIS: NSTEMI PRIMARY INDICATION FOR PROCEDURE: NSTEMI PATIENT REASSESSED PRIOR TO SEDATION, WITH NO CHANGE NOTED: Yes PHYSICAL EXAM: alert, oriented x 3, clear to auscultation bilaterally and regular rate & rhythm AIRWAY EVAL/ANESTHESIA PLAN: ASA III, Monitored Anesthesia, Local Anesthesia, Risks, benefits & alternatives of sedation and/or procedure discussed and Patient agrees to continue as planned
--- NOTE | 2021-02-07 13:41 | CTR_ITS ---
PROCEDURE INFORMATION: Exam: CTA Chest With Contrast Exam date and time: 02/07/2021 4:50 PM Age: 75 years old Clinical indication: Pain; Chest pressure; Patient HX: C/O chest discomfort radiating to both arms; Additional info: Chest pain, elevated trop TECHNIQUE: Imaging protocol: Computed tomographic angiography of the chest with contrast. 3D rendering (Not supervised by radiologist): MIP and/or 3D reconstructed images were created by the technologist. Radiation optimization: All CT scans at this facility use at least one of these dose optimization techniques: automated exposure control; mA and/or kV adjustment per patient size (includes targeted exams where dose is matched to clinical indication); or iterative reconstruction. Contrast material: VISI 320; Contrast volume: 86 ml; Contrast route: INTRAVENOUS (IV); COMPARISON: CR XR chest 1V portable [id number] 02/07/2021 8:52 AM RADIATION DOSE METRICS: Total DLP (mGy-cm): 591.07 FINDINGS: Pulmonary arteries: No evidence of pulmonary embolus. Aorta: Scattered aortic calcifications. Normal aortic caliber. Lungs: No consolidation. No masses. Pleural spaces: Unremarkable. No pneumothorax. No pleural effusion. Heart: No cardiomegaly. No pericardial effusion. Lymph nodes: No enlarged lymph nodes. Bones/joints: No acute fracture. Soft tissues: Within normal limits. CT/CT angio chest PE protcl [id number] IMPRESSION: No evidence of pulmonary embolus. Radiation Dose CTDIVOL = (mGy): DLP = 591.07 (mGy-cm)
[2021-02-07] MEDS: sodium chloride 0.9% 1,000 ML 50 ML IV (13:48)
--- NOTE | 2021-02-07 14:15 | ECG_ITS ---
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: : [id number] Requested By: Desmond Tyler Order Number: [id number] Reading MD: PHILL GRANGER Measurements Intervals [place] Rate: 53 P: 63 MT: 171 QRS: 32 QRSD: 97 T: 79 QT: 443 QTc: 418 Interpretive Statements SINUS BRADYCARDIA LOW QRS VOLTAGE IN PRECORDIAL LEADS [QRS DEFLECTION < 1.0 mV IN CHEST LEADS] NONSPECIFIC ST & T-WAVE ABNORMALITY Compared to ECG 02/07/2021 09:02:10 Low QRS voltage now present T-wave abnormality now present Sinus arrhythmia no longer present ST (T wave) deviation no longer present Prolonged QT interval no longer present Electronically Signed On 02-07-2021 20:16:46 CDT by PHILL GRANGER [id number]
[2021-02-07] MEDS: propafenone 150 mg Tablet 225 MG PO ×2 (14:29→21:01)
[2021-02-07] MEDS: sodium chloride 0.9% 1,000 ML 100 ML IV (15:55)
[2021-02-07 16:03] LABS: Troponin 5 6HR 737.4 ng/L (0-10)
[2021-02-07 16:04] LABS: Troponin 5 6HR Delta 59.4 ng/L (0-12)
--- NOTE | 2021-02-07 16:30 | PC.NURSE ---
pt TR band off. 4x4 with opsite placed. VSS wll monitor
[2021-02-07] MEDS: iodixanol 320 mg/mL 100mL Btl IV (17:06)
--- NOTE | 2021-02-07 17:17 | PC.NURSE ---
Received report from ICU nurse. Patient resting in bed, vital signs stable and patient has no complaints at this time.
--- NOTE | 2021-02-07 19:26 | PC.NURSE ---
IV fluids lost upon transfer from ICU
[2021-02-07] MEDS: buPROPion SR (12 HR) 150 mg Tablet PO (21:01)
[2021-02-07] MEDS: gabapentin 300 mg Capsule 600 MG PO (21:01)
[2021-02-07] MEDS: atorvastatin 40 mg Tablet 80 MG PO (21:03)
[2021-02-07] MEDS: lamoTRIgine 100 mg Tablet 50 MG PO (21:06)
[2021-02-08] VITALS (48 sets, daily range): BP systolic 103–135; BP diastolic 40–62; PULSE 56–84; RESP 1–21; TEMP 36.9; O2SAT 88–100
[2021-02-08 05:39] LABS: Basophils % 0.3 %; Eosinophils # 0.2 10^3/uL (0.0-0.8); Eosinophils % 2.4 %; Hematocrit 35.8 % (37.0-47.0); Hemoglobin 11.2 g/dL (11.5-15.3); Lymphocytes % 28.7 %; Mean Corpuscular HGB Conc 31.3 g/dL (30.0-36.0); Mean Corpuscular Volume 99.2 fL (81-99); Mean Platelet Volume 10.2 fL (7.4-10.4); Monocytes # 0.7 10^3/uL (0.2-0.9); Monocytes % 9.4 %; Neutrophils # 4.18 10^3/uL (1.8-7.7); Neutrophils % 58.9 %; Nucleated Red Blood Cells % 0 %; Platelet Count 163 10^3/cmm (130-400); Red Blood Count 3.61 10^6/uL (4.1-5.3); Red Cell Distribution Width 13.2 % (12.1-15.1); White Blood Count 7.1 10^3/uL (4.0-10.0)
[2021-02-08 06:06] LABS: Alanine Aminotransferase 11 U/L (0-33); Albumin Level 3.2 g/dL (3.5-5.2); Alkaline Phosphatase 62 IU/L (35-105); Anion Gap 11.9 (5-19); Aspartate Amino Transferase 28 U/L (0-32); Blood Urea Nitrogen 12 mg/dL (8-23); Calcium 7.9 mg/dL (8.5-10.5); Carbon Dioxide 27 mmol/L (22-29); Chloride 108 mmol/L (98-107); Globulin 2.7 g/dL (1.3-4.6); Glucose 89 mg/dL (65-115); Osmolality Calculated 295 mOsm/kg (285-295); Potassium 3.9 mmol/L (3.5-5.1); Sodium 143 mmol/L (136-145); Total Bilirubin 0.5 mg/dL (0.15-1.2); Total Protein 5.9 g/dL (6.6-8.7)
[2021-02-08] MEDS: losartan 50 mg Tablet 25 MG PO (09:15)
[2021-02-08] MEDS: gabapentin 300 mg Capsule PO (09:15)
[2021-02-08] MEDS: lamoTRIgine 100 mg Tablet 50 MG PO (09:16)
[2021-02-08] MEDS: propafenone 150 mg Tablet 225 MG PO (09:17)
--- NOTE | 2021-02-08 09:51 | P.PN_ITS ---
Subjective Subjective: Interval history: Patient is doing well. She denies any chest pain. She underwent coronary angiogram yesterday which did not reveal any significant coronary artery disease. Echocardiogram shows normal LV systolic function. Vitals/I&O/Wt Last Vital Signs Temp 98.4 F 02/08/21 06:00 Pulse 80 02/08/21 08:53 Resp 20 H 02/08/21 06:00 BP 135/58 02/08/21 09:15 Pulse Ox 95 02/08/21 08:53 02/07/21 02/08/21 02/08/21 22:59 06:59 14:59 Intake Total 775.833 / 972.366 360 / 360 Output Total 550 / 550 Balance 225.833 / 422.366 360 / 360 Weight last 48 hrs Weight 285 lb 8 oz Weight 277 lb Physical Exam Narrative: EXAM NARRATIVE: GENERAL: Awake, alert, oriented, in no acute distress. [] HEENT: Normocephalic, atraumatic, PERRLA. [] CHEST: Clear to auscultation bilaterally. [] CVS: S1, S2 normal. No murmur, rubs, gallops. Peripheral pulses palpable. [] ABDOMEN: Soft, nontender. Nondistended. Bowel sounds heard. [] NEUROVASCULAR: Awake, alert. Power 5/5 all extremities. DTR+ [] EXTREMITIES: No edema. [] Data : 02/08/21 04:25 02/08/21 04:25 A&P Assessment and plan (1) Non-ST elevation HI (NSTEMI): Status: Acute (2) Afib: Status: Acute (3) Carotid artery disease: Status: Acute (4) HTN (hypertension): Status: Acute (5) Hyperlipidemia: Status: Acute (6) Sinus bradycardia: Status: Acute Patient had troponin elevation on presentation with significant delta however coronary angiogram did not reveal significant coronary artery disease. CTA of the chest did not reveal PE. Her symptoms were likely secondary to coronary spasm versus transient stress cardiomyopathy that has resolved. We will recommend continuing Plavix along with Pradaxa Echo reveals normal LV systolic function. Patient is ready to be discharged from cardiology standpoint. Follow-up with cardiology office. Thank you for involving us with care of this patient. Please call with questions. Attestations 2 Medical Necessity Statement*: Care expected to cross 2 midnights. 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
--- NOTE | 2021-02-08 12:43 | PM.DCS ---
Discharge Providers Date of Admission: 02/07/21 09:42 Date of Discharge: February 08, 2021 Attending Provider at Admission: Shahzad Novoa MD Attending Provider at Discharge: Luisana Tucker MD Primary Care Provider: Barbara Scott NP Diagnoses at Discharge Discharge Diagnosis (1) Non-ST elevation SD (NSTEMI): Status: Acute (2) Afib: Status: Acute (3) HTN (hypertension): Status: Acute (4) Hyperlipidemia: Status: Acute Reason for Visit Reason for Visit: CP/SOB Hospital Course Hospital Course Sandra Mcgrath is a 75 year old female who presents to the hospital on 02/07 with chest discomfort shortly after having undergone a tooth extraction yesterday around noon and then again at 6 AM on the morning of presentation. EKG showed bradycardia with a rate of 52, anterior precordial leads depression and lateral changes, no ST elevation. Troponin was elevated at 678 with a delta of 219. She was started on a heparin drip, cardiology was consulted and she underwent an angiogram on February 07, 2021 which showed no obstructive coronary artery disease. CTA of the chest did not show any PE. Echo showed an LVEF of 55 to 60% with normal diastolic function, no significant valvular heart disease. At the time of discharge patient is currently chest pain-free and eager to return home.. She is being discharged on Plavix in addition to Pradaxa with recommendations to follow-up with cardiology in 1 week. 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 Routin e Exams 02/07/21 12:13 Ordered Labs from last 24 hours 02/08/21 02/08/21 02/07/21 04:25 04:25 14:45 WBC 7.1 RBC 3.61 L Hgb 11.2 L Hct 35.8 L MCV 99.2 H MCH 31.0 MCHC 31.3 RDW 13.2 Plt Count 163 MPV 10.2 Neut % (Auto) 58.9 Lymph % (Auto) 28.7 [place] % (Auto) 9.4 Eos % (Auto) 2.4 Baso % (Auto) 0.3 Neut # (Auto) 4.18 Lymph # (Auto) 2.0 [place] # (Auto) 0.7 Eos # (Auto) 0.2 Baso # (Auto) 0.0 Nucleated RBC % (a uto) 0 Nucleated RBCs # 0.0 APTT 88.0 H D Sodium 143 Potassium 3.9 Chloride 108 H Carbon Dioxide 27 Anion Gap 11.9 BUN 12 Creatinine 1.0 H GFR Calculation Not Reportable Glucose 89 Calculated Osmolal ity 295 Calcium 7.9 L Total Bilirubin 0.5 AST 28 ALT 11 Alkaline Phosphata se 62 Troponin T Hi Sens 6Hr Troponin T Hi Sens 6Hr Delta Total Protein 5.9 L Albumin 3.2 L Globulin 2.7 02/07/21 14:45 WBC RBC Hgb Hct MCV MCH MCHC RDW Plt Count MPV Neut % (Auto) Lymph % (Auto) [place] % (Auto) Eos % (Auto) Baso % (Auto) Neut # (Auto) Lymph # (Auto) [place] # (Auto) Eos # (Auto) Baso # (Auto) Nucleated RBC % (a uto) Nucleated RBCs # APTT Sodium Potassium Chloride Carbon Dioxide Anion Gap BUN Creatinine GFR Calculation Glucose Calculated Osmolal ity Calcium Total Bilirubin AST ALT Alkaline Phosphata se Troponin T Hi Sens 6Hr 737.4 H Troponin T Hi Sens 6Hr Delta 59.4 H* Total Protein Albumin Globulin Vitals: Last Vital Signs Temp 98.4 F 02/08/21 08:00 Pulse 80 02/08/21 08:53 Resp 20 H 02/08/21 08:00 BP 118/62 02/08/21 09:15 Pulse Ox 95 02/08/21 08:53 Discharge Plan Discharge Patient Disposition: Home Condition: Stable Prescriptions: New clopidogrel [Plavix] 75 mg tablet 75 mg PO DAILY 30 Days Qty: 30 RF: 0 Continued bupropion HCl 150 mg tablet sustained-release 12 hr 150 mg PO DAILY@2100 RF: 0 cetirizine [Zyrtec] 10 mg Tablet 10 mg PO DAILY@0900 RF: 0 lamotrigine 25 mg tablet 50 mg PO BID@ RF: 0 propafenone 225 mg tablet 225 mg PO TID RF: 0 hydrocodone-acetaminophen 7.5-325 mg tablet 1 tab PO QID PRN (Reason: Pain) RF: 0 losartan 25 mg tablet 25 mg PO DAILY@ RF: 0 gabapentin 300 mg capsule See Rx Instructions .ROUTE .COMPLEX RF: 0 metoprolol tartrate 25 mg tablet 12.5 mg PO BID@ RF: 0 Pradaxa 150 mg capsule 150 mg PO BID@ RF: 0 amoxicillin 500 mg capsule 500 mg PO TID RF: 0 Changed Crestor 10 mg Tablet 20 mg PO DAILY@2099 Qty: 0 RF: 0 Discharge Orders: Discharge Order (Routine); Ordered 02/08/21 Ordered By: Luisana Tucker Discharge Diet: Cardiac Discharge Activity: Resume usual activity Discharge Attestations Time Spent in Discharge Care*: less than 30 min Quality Metrics Clinical Quality Measures During this hospital stay, did patient experience: None Coding Level of Care Code Acute [facility] note Diagnoses Non-ST elevation SD (NSTEMI) I21.4 Afib I48.91 HTN (hypertension) I10 Hyperlipidemia E78.5
== END 2021-02-08 14:30 | disposition home or self-care (01) | DRG 281 ==
LOC: ER 09:47 → ICU 10:01 → CSU 16:51
PROVIDERS: Internal Medicine; Admitting Provider Internal Medicine; Emergency Provider Family Medicine; PCP Nurse Practitioner Family; Visit Provider Student in an Organized Health Care Education/Training Program
PROC: 4A023N7 Measurement of Cardiac Sampling and Pressure, Left Heart, Percutaneous Approach (ICD-10-PCS; principal; 2021-02-07 12:30)
DX: I21.4 Non-ST elevation (NSTEMI) myocardial infarction (principal); Z68.42 Body mass index [BMI] 45.0-49.9, adult; I25.10 Atherosclerotic heart disease of native coronary artery without angina pectoris; I48.91 Unspecified atrial fibrillation; M79.7 Fibromyalgia; Z85.828 Personal history of other malignant neoplasm of skin; I10 Essential (primary) hypertension; E78.5 Hyperlipidemia, unspecified; Z90.49 Acquired absence of other specified parts of digestive tract; Z87.891 Personal history of nicotine dependence; I77.9 Disorder of arteries and arterioles, unspecified; Z79.891 Long term (current) use of opiate analgesic; Z79.01 Long term (current) use of anticoagulants; E66.9 Obesity, unspecified
CPT/HCPCS: 36415; 71045; 71275; 80053; 83735; 84443; 84484; 85025; 85730; 93005; 93306; 93452; 96365; 96375; 99291; C1769; C1887; C1894; J1644; J2250; J2270; J3010; J3490; J7030; Q9967

== ENCOUNTER 2021-03-28 13:57 | Emergency (ER) | payer MEDICARE, SELFPAY ==
[2021-03-28 14:01] VITALS: BP 152/79; PULSE 57; RESP 18; TEMP 36.4; O2SAT 95; BMI 44.4
--- NOTE | 2021-03-28 14:10 | CT_ITS ---
WS: [id number] CT FACIAL BONES HISTORY: facial swelling and pain s/p dental extraction 6 weeks ago TECHNIQUE: Images obtained from the supraorbital location through the mandible. Soft tissue and bone windows are reviewed. Coronal and sagittal reformats have also been submitted. DLP: 703.[address] scans at [facility] use at least one of these dose optimization techniques: automat ed exposure control; mA and/or kV adjustment per patient size (includes targeted exams where dose is matched to clinical indication); or iterative reconstruction. COMPARISON: None available. No facial bone fractures or displacement. No air-fluid levels in the sinuses. No fluid collections or abscess identified. There is no significant amount of inflammation surrounding the mandible or maxil la. There is evidence for dental caries within the axilla at the mandible. CT/CT facial bones wo con* 50020 IMPRESSION: 1. No significant inflammatory changes within the soft tissues around the face . 2. No fractures.
--- NOTE | 2021-03-28 14:50 | ED_ITS ---
HPI - Dental/Oral General: Chief complaint: Dental/Oral Stated complaint: SWELLING Time Seen by Provider: 03/28/21 13:59 Source: patient Mode of arrival: ambulatory Limitations: no limitations History of Present Illness: HPI Narrative: 75-year-old female patient who had one of her top teeth removed about 6 weeks ago. She has had intermittent pain in her upper jaw since then. She has been on antibiotics for it after this tooth was taken out. Shortly after the tooth extraction she had a non-STEMI. Today she woke up today and she had swelling along her upper jawline anteriorly and facial swelling. She still has significant pain. She is here to be evaluated for this as she is concerned. No fever, no drainage from her mouth. MD Complaint: tooth pain Duration: constant Relieving factors: nothing Exacerbating factors: nothing Associated symptoms: Reports gum swelling; Denies ear or mastoid pain, fever(s), odynophagia, sore throat or tongue swelling Treatment prior to arrival: none Review of Systems General: Reports: 10 or more systems reviewed and unremarkable except in HPI and below Const: Denies: fever(s) ENMT: Denies: odynophagia or ear or mastoid pain All/Imm: Denies: tongue swelling PFSH ED PFSH: Medical History Afib Carotid artery disease Diverticulitis Fibromyalgia History of nonmelanoma skin cancer HTN (hypertension) Hyperlipidemia Non-ST elevation [place] (NSTEMI) Sinus bradycardia Surgical History History of appendectomy History of colonoscopy History of hysterectomy History of partial colectomy Family History Other CAD (coronary artery disease) Social History Smoking and tobacco status: former smoker Alcohol intake: never Physical Exam Const: COMMON NORMALS: no acute distress, average body habitus, patient oriented x3, no limitations, healthy appearing, alert and well nourished HENMT: COMMON NORMALS: normocephalic, atraumatic and moist oral mucous membranes HEAD & SCALP: normocephalic and atraumatic TEETH & GINGIVA: Yes abnormal tooth and associated gingiva and Yes gingiva abnormal diffusely erythematous and tender Eye: COMMON NORMALS: Equal, round and reactive pupils present, EOMs intact bilaterally, conjunctivae normal and no scleral icterus CONJUNCTIVA: Yes conjunctivae normal PUPIL: Yes Equal, round and reactive pupils present Neck/C-Spine: COMMON NORMALS: no meningeal signs and no JVD Resp: COMMON NORMALS: normal respiratory effort, No retractions, No use of accessory muscles, clear to auscultation bilaterally and percussion normal AUSCULTATION: clear to auscultation bilaterally PERCUSSION: percussion normal Cardio: COMMON NORMALS: no JVD, regular rate, regular rhythm, S1 normal heart sound present, S2 normal heart sound present, No gallops present (Cardio), No clicks present (Cardio), No murmurs present (Cardio), No rub (Cardio) and Peripheral pulses 2+ throughout RATE: regular rate RHYTHM: regular rhythm HEART SOUNDS: S1 normal heart sound present and S2 normal heart sound present PERIPHERAL PULSES: Peripheral pulses 2+ throughout GI: COMMON NORMALS: Normal to inspection, nondistended, normoactive bowel sounds present, Soft to palpation, non-tender, No hepatosplenomegaly present, no masses and no bruits PALPATION: Yes Soft to palpation and Yes No hepatosplenomegaly present Neuro: COMMON NORMALS: patient oriented x3 SENSORIUM/ORIENTATION: Yes alert MENINGEAL SIGNS: Yes no meningeal signs Course Reevaluation(s): Reevaluation #1: Discussed imaging findings with her. Negative for acute findings. We will discharge her home with a prescription for Augmentin on discharge because of corticosteroids. I talked to her about chlorhexidine mouthwash and she states that she has some at home but has not been using it. She is advised to use heat as it had been prescribed to her. She voiced understanding and is in agreement with the plan. Time: 14:50 Vital Signs: Vital signs: Vital Signs Temperature 97.6 F 03/28/21 14:01 Pulse Rate 60 03/28/21 15:09 Respiratory Rate 16 03/28/21 15:09 Blood Pressure 105/59 03/28/21 15:09 Pulse Oximetry 96 03/28/21 15:09 MDM - Dental/Oral MDM Narrative: Medical decision making narrative: 75-year-old female patient with clinical features consistent with uncomplicated gingivitis. She is discharged home with a prescription for oral antibiotics and oral corticosteroids. She is to follow-up with her primary care provider and her dentist. Medical Records: Attestation: I reviewed the patient's medical records. Imaging Data^: Other CT: Attestation: I personally reviewed and interpreted this imaging study as follows: Radiologist's impression: [address] [id number] Scan ReportSigned Patient: Sandra Mcgrath #: [id number]: [id number]#:[id number]/Sex: 75 / FADM Date: 03/28/21Loc: ERRoom/Bed:Attending Dr: Ordering Provider/Ordering MD: August Barraza MD, [facility] [place] Date of Service: 03/28/21 Procedure(s): CT facial bones wo con* [id number] Accession Number(s): [id number] Report Number: [id number] WS: [id number] CT FACIAL BONES HISTORY: facial swelling and pain s/p dental extraction 6 weeks ago TECHNIQUE: Images obtained from the supraorbital location through the mandible. Soft tissue and bone windows are reviewed. Coronal and sagittal reformats have also been submitted. DLP: 703.[address] scans at [facility] use at least one of these dose optimization techniques: automated exposure control; mA and/or kV adjustment per patient size (includes targeted exams where dose is matched to clinical indication); or iterative reconstruction. COMPARISON: None available. No facial bone fractures or displacement. No air-fluid levels in the sinuses. No fluid collections or abscess identified. There is no significant amount of inflammation surrounding the mandible or maxilla. There is evidence for dental caries within the axilla at the mandible. CT/CT facial bones wo con* [id number] IMPRESSION: 1. No significant inflammatory changes within the soft tissues around the face. 2. No fractures. Dictated By:Sarah Astudillo DOSigned By:Sarah Astudillo DOSigned Date/Time:03/28/21 1438DD/ 1435 Discharge Plan Discharge Patient Disposition: Home Clinical Impression: Gingivitis Condition: Stable Prescriptions: New Augmentin 875-125 mg tablet 1 tab PO BID Qty: 14 RF: 0 prednisone 20 mg tablet 20 mg PO DAILY 3 Days Qty: 3 RF: 0 Continued bupropion HCl 150 mg tablet sustained-release 12 hr 150 mg PO DAILY@2100 RF: 0 cetirizine [Zyrtec] 10 mg Tablet 10 mg PO DAILY@0900 RF: 0 lamotrigine 25 mg tablet 50 mg PO BID@, RF: 0 propafenone 225 mg tablet 225 mg PO TID RF: 0 hydrocodone-acetaminophen 7.5-325 mg tablet 1 tab PO QID PRN (Reason: Pain) RF: 0 losartan 25 mg tablet 25 mg PO DAILY@09 RF: 0 gabapentin 300 mg capsule See Rx Instructions .ROUTE .COMPLEX RF: 0 metoprolol tartrate 25 mg tablet 12.5 mg PO BID@ RF: 0 Pradaxa 150 mg capsule 150 mg PO BID@ RF: 0 rosuvastatin [Crestor] 10 mg Tablet 20 mg PO DAILY@2099 Qty: 0 RF: 0 Discharge Orders: Discharge ED (Routine); Ordered 03/28/21 Ordered By: August Barraza Referrals: Barbara Scott, FIELD CROP HARVEST WORKER [Primary Care Provider] - 1-3 days Discharge Diet: Usual diet Discharge Activity: Increase activity as tolerated Patient Instructions: Gingivitis (ED) Activity Restrictions/Additional Instructions: Return for any new or worsening symptoms. Follow-up with your primary care provider within 3 days. Take the medications as prescribed. Use your chlorhexidine mouthwash as prescribed to you. Follow-up with your dentist as soon as you can. Coding Level of Care Code ED Vice President Investor Relations for Bella Leon
[2021-03-28 15:09] VITALS: BP 105/59; PULSE 60; RESP 16; O2SAT 96
== END 2021-03-28 15:11 | disposition home or self-care (01) ==
PROVIDERS: Emergency Provider Family Medicine; PCP Nurse Practitioner Family
DX: K05.10 Chronic gingivitis, plaque induced (principal); I48.91 Unspecified atrial fibrillation; I10 Essential (primary) hypertension; E78.5 Hyperlipidemia, unspecified; I25.2 Old myocardial infarction; Z87.891 Personal history of nicotine dependence
CPT/HCPCS: 70486; 99282

== ENCOUNTER 2021-05-15 15:48 | Emergency (ER) | payer MEDICARE, SELFPAY ==
[2021-05-15 16:15] VITALS: BP 166/73; PULSE 62; RESP 16; TEMP 36.7; O2SAT 91; BMI 36.3
--- NOTE | 2021-05-15 17:17 | W.ED.DENTAL ---
HPI - Dental/Oral General: Chief complaint: Dental/Oral Stated complaint: oral surgery today, bleeding,high BP, heart issues Time Seen by Provider: 05/15/21 17:05 History of Present Illness: HPI Narrative: Patient had her teeth removed today and has had some persistent oozing of blood. Patient does take Pradaxa routinely. Patient appears well. Patient appears in mild to moderate pain. Patient is maintaining her airway and secretions well. Review of Systems General: Reports: 10 or more systems reviewed and unremarkable except in HPI and below ENMT: Reports: other (bleeding of the gumline post dental surgery) PFS ED PFSH: Medical History (Reviewed 03/28/21 @ 23:20 by August Barraza [place] [facility] [place] Afib Carotid artery disease Diverticulitis Fibromyalgia History of nonmelanoma skin cancer HTN (hypertension) Hyperlipidemia Non-ST elevation [place] (NSTEMI) Sinus bradycardia Surgical History History of appendectomy History of colonoscopy History of hysterectomy History of partial colectomy Family History Other CAD (coronary artery disease) Social History (Reviewed 03/28/21 @ 23:20 by August Barraza [place], [facility] [place] Smoking and tobacco status: former smoker Alcohol intake: never Physical Exam Const: COMMON NORMALS: no acute distress and patient oriented x3 GENERAL APPEARANCE: cooperative HENMT: COMMON NORMALS: normocephalic and Normal external nose present HEAD & SCALP: normal to inspection and normocephalic NOSE: Normal external nose present MOUTH: other (Patient has sutured gumline. Oozing of blood but no significant bleeding.) THROAT: posterior oropharynx normal Eye: GENERAL EYE: appearance normal, both eyes and all related structures Neck/C-Spine: COMMON NORMALS: full ROM Lymph: LYMPHATIC: no lymphadenopathy noted Chest: COMMONS NORMALS: normal inspection of the chest Resp: COMMON NORMALS: normal respiratory effort EFFORT & INSPECTION: Yes able to speak in complete sentences Cardio: COMMON NORMALS: regular rate and regular rhythm RATE: regular rate RHYTHM: regular rhythm GI: COMMON NORMALS: non-tender Back/Pelvis: COMMON NORMALS: thoracic and lumbar spine normal to inspection Extremity: COMMON NORMALS: normal to inspection Neuro: COMMON NORMALS: patient oriented x3 and moves all extremities Psych: COMMON NORMALS: mental status grossly normal and cooperative Skin: COMMON NORMALS: no rashes or lesions noted GENERAL SKIN EXAM: no rashes or lesions noted Course Vital Signs: Vital signs: Vital Signs Temperature 98.1 F 05/15/21 16:15 Pulse Rate 62 05/15/21 16:15 Respiratory Rate 16 05/15/21 17:39 Blood Pressure 166/73 05/15/21 16:15 Pulse Oximetry 91 05/15/21 16:15 MDM - Dental/Oral MDM Narrative: Medical decision making narrative: Patient comes into the ER for concerns of bleeding post surgery. Patient had her teeth removed today and the oral surgeon and has had some persistent bleeding since leaving surgeon's office. The surgeon recommended patient come to the emergency room for evaluation. Exam notes some mild bleeding from the gumline, no abnormal bleeding is noted. Patient is maintaining airway and secretions. Patient does take Pradaxa but had not held the medication prior to surgery. Differential diagnosis includes anticoagulation, anemia, surgical hemorrhage. CBC was good with a normal hemoglobin hematocrit. Reviewed exam with patient with recommendations for continuing to hold pressure in case because further oozing. No significant hemorrhage was noted. Recommended lots of fluids and holding Plavix and Pradaxa for the next 2 to 3 days until bleeding had stopped for least 12 to 24 hours. Patient and family member both reported understanding. Lab Data: Labs: Lab Results 05/15/21 05/15/21 Range/Units 18:33 18:33 WBC 12.0 H (4.0-10.0) 10^3/ uL RBC 4.62 (4.1-5.3) 10^6/u L Hgb 14.1 (11.5-15.3) g/dL Hct 45.9 (37.0-47.0) % MCV 99.4 H (81-99) fL MCH 30.5 (28.0-34.0) pg MCHC 30.7 (30.0-36.0) g/dL RDW 13.1 (12.1-15.1) % Plt Count 203 (130-400) 10^3/c mm MPV 9.4 (7.4-10.4) fL Neut % (Auto) 82.0 % Lymph % (Auto) 11.5 % [place] % (Auto) 5.5 % Eos % (Auto) 0.4 % Baso % (Auto) 0.3 % Neut # (Auto) 9.85 H (1.8-7.7) 10^3/u L Lymph # (Auto) 1.4 (0.8-4.8) 10^3/u L [place] # (Auto) 0.7 (0.2-0.9) 10^3/u L Eos # (Auto) 0.1 (0.0-0.8) 10^3/u L Baso # (Auto) 0.0 (0.0-0.1) 10^3/u L Nucleated RBC % (a uto) 0 % Nucleated RBCs # 0.0 /100WBC PT 15.60 H (12.1-14.9) SECO NDS INR 1.21 H (0.8-1.2) Discharge Plan Discharge Patient Disposition: Home Clinical Impression: Postoperative bleeding from mouth Condition: Stable Prescriptions: No Action bupropion HCl 150 mg tablet sustained-release 12 hr 150 mg PO DAILY@2099 RF: 0 cetirizine [Zyrtec] 10 mg Tablet 10 mg PO DAILY@0900 RF: 0 lamotrigine 25 mg tablet 50 mg PO BID@ RF: 0 propafenone 225 mg tablet 225 mg PO TID RF: 0 hydrocodone-acetaminophen 7.5-325 mg tablet 1 tab PO QID PRN (Reason: Pain) RF: 0 losartan 25 mg tablet 25 mg PO DAILY@09 RF: 0 gabapentin 300 mg capsule See Rx Instructions .ROUTE .COMPLEX RF: 0 metoprolol tartrate 25 mg tablet 12.5 mg PO BID@ RF: 0 Pradaxa 150 mg capsule 150 mg PO BID@ RF: 0 rosuvastatin [Crestor] 10 mg Tablet 20 mg PO DAILY@2100 Qty: 0 RF: 0 Augmentin 875-125 mg tablet 1 tab PO BID Qty: 14 RF: 0 Discharge Orders: Discharge ED (Routine); Ordered 05/15/21 Ordered By: David Finn Referrals: Barbara Scott, MARGOT [Primary Care Provider] - Discharge Diet: Usual diet Discharge Activity: Increase activity as tolerated Patient Instructions: Opioid Safety, Wound Care (General) Activity Restrictions/Additional Instructions: Sleep sitting up in recliner. Change gauze as it becomes soiled. Continue with gauze and pressure to the wounds. Drink plenty of water. Hold Pradaxa for the next 3 days. Continue with routine care otherwise as instructed. Follow-up with surgeon as needed. Return to the ER for worsening symptoms or new concerns. Coding Level of Care Code ED Cook Fish Eggs for Bella Fwjarrod Exam Comprehensive
[2021-05-15 17:39] VITALS: RESP 16
[2021-05-15] MEDS: morphine 4 mg/mL SDV 1 mL 2 MG IM (17:39)
[2021-05-15] MEDS: dexamethasone 10 mg/mL INJ IM (17:40)
--- NOTE | 2021-05-15 18:40 | PC.NURSE ---
pt is sitting in a wheelchair in the vertical flow area with family at bedside. Lab has completed the lab draw for the pt.
[2021-05-15 18:43] LABS: Basophils % 0.3 %; Eosinophils # 0.1 10^3/uL (0.0-0.8); Eosinophils % 0.4 %; Hematocrit 45.9 % (37.0-47.0); Hemoglobin 14.1 g/dL (11.5-15.3); Lymphocytes # 1.4 10^3/uL (0.8-4.8); Lymphocytes % 11.5 %; Mean Corpuscular HGB Conc 30.7 g/dL (30.0-36.0); Mean Corpuscular Hemoglobin 30.5 pg (28.0-34.0); Mean Corpuscular Volume 99.4 fL (81-99); Mean Platelet Volume 9.4 fL (7.4-10.4); Monocytes # 0.7 10^3/uL (0.2-0.9); Monocytes % 5.5 %; Neutrophils # 9.85 10^3/uL (1.8-7.7); Nucleated Red Blood Cells % 0 %; Platelet Count 203 10^3/cmm (130-400); Red Blood Count 4.62 10^6/uL (4.1-5.3); Red Cell Distribution Width 13.1 % (12.1-15.1)
--- NOTE | 2021-05-15 18:46 | PC.NURSE ---
pt continues to change out her the gauze in her mouth. bleeding has slowed since her arrival
--- NOTE | 2021-05-15 18:48 | PC.NURSE ---
pt has moved to the recliner at this time
[2021-05-15 18:57] LABS: INR 1.21 (0.8-1.2)
[2021-05-15 18:58] VITALS: BP 160/75; PULSE 66; RESP 16; TEMP 36.8; O2SAT 92
[2021-05-15 18:58] LABS: Partial Thromboplastin Time 34.8 SECONDS (23.9-36.7)
[2021-05-15 19:13] LABS: Alanine Aminotransferase 15 U/L (0-33); Albumin Level 4.1 g/dL (3.5-5.2); Alkaline Phosphatase 79 IU/L (35-105); Anion Gap 15.5 (5-19); Aspartate Amino Transferase 20 U/L (0-32); Blood Urea Nitrogen 12 mg/dL (8-23); Calcium 9.1 mg/dL (8.5-10.5); Carbon Dioxide 27 mmol/L (22-29); Chloride 104 mmol/L (98-107); Globulin 3.6 g/dL (1.3-4.6); Glucose 104 mg/dL (65-115); Osmolality Calculated 294 mOsm/kg (285-295); Potassium 4.5 mmol/L (3.5-5.1); Sodium 142 mmol/L (136-145); Total Bilirubin 0.4 mg/dL (0.15-1.2); Total Protein 7.7 g/dL (6.6-8.7)
== END 2021-05-15 19:06 | disposition home or self-care (01) ==
PROVIDERS: Physician Assistant; Emergency Provider Nurse Practitioner Family; PCP Nurse Practitioner Family
DX: K91.870 Postprocedural hematoma of a digestive system organ or structure following a digestive system procedure (principal); I10 Essential (primary) hypertension; E78.5 Hyperlipidemia, unspecified; I25.2 Old myocardial infarction; Z87.891 Personal history of nicotine dependence
CPT/HCPCS: 36415; 80053; 85025; 85610; 85730; 96372; 99283; J1100; J2270

== ENCOUNTER 2022-01-01 08:58 | Outpatient (CLI) | payer MEDICARE, SELFPAY ==
--- NOTE | 2022-01-01 09:23 | XR_ITS ---
WS: [email or web address] SCREENING DEXA SCAN [employer] CLINICAL INFORMATION: AGE RELATED OSTEOPOROSIS WITHOUT CURRENT PATHOLOGICAL FRACTU COMPARISON: 018 FINDINGS: The L1-L4 bone mineral density measures 1.783 g/cm2. This corresponds to a T score score of 5.0 and Z score of 5.6. Left femoral neck bone mineral density measures 1.321 g/cm2. This corresponds to a T score of 2.5 and Z score of 3.3. Right femoral neck bone mineral density measures 1.256 g/cm2. This corresponds to a T score 2.0of and Z score of 2.8. Mean femoral neck bone mineral density measures 1.288 g/cm2. This corresponds to a T score of 2.2 and Z score of 3.1. XR/XR DEXA axial skeleton* [id number] IMPRESSION: Normal bone mineralization. Patient's FRAX calculated 10 year probability for major osteoporotic fracture i s 5.8 % and osteoporotic hip fracture is 0.3%.
== END 2022-01-01 08:59 | disposition home or self-care (01) ==
PROVIDERS: PCP Nurse Practitioner Family; Visit Provider Nurse Practitioner Family
DX: M81.0 Age-related osteoporosis without current pathological fracture (principal)
CPT/HCPCS: 77080

== ENCOUNTER 2022-01-15 14:49 | Outpatient (CLI) | payer MEDICARE, SELFPAY ==
--- NOTE | 2022-01-15 15:05 | XR_ITS ---
WS: [email or web address] [id number] REASON FOR EXAM: CLAVICLE ENLARGEMENT FINDINGS: No fracture or focal bone lesion. Mild narrowing of the acromioclavicular joint with subchondral sclerosis and large osteophytes, most notably at the superior margin of the joint from the clavicle. No soft tissue abnormality identified. XR/[place] [id number] IMPRESSION: Osteoarthritis of the right acromioclavicular joint as above.
== END 2022-01-15 14:50 | disposition home or self-care (01) ==
LOC: RAD 14:57
PROVIDERS: PCP Nurse Practitioner Family; Visit Provider Nurse Practitioner Family
DX: M89.319 Hypertrophy of bone, unspecified shoulder (principal); M19.011 Primary osteoarthritis, right shoulder
CPT/HCPCS: 73000

== ENCOUNTER → 2022-03-02 14:13 | Outpatient (BNVA) | payer MEDICARE, SELFPAY | PROVIDERS: PCP Nurse Practitioner Family; Visit Provider Specialist | DX: G31.84 Mild cognitive impairment of uncertain or unknown etiology (principal); R26.89 Other abnormalities of gait and mobility | CPT/HCPCS: 96116; 99204; 99205 ==

== ENCOUNTER → 2022-07-13 12:20 | Outpatient (BNVA) | payer MEDICARE, SELFPAY | PROVIDERS: PCP Nurse Practitioner Family; Visit Provider Internal Medicine | DX: R00.1 Bradycardia, unspecified (principal); E78.5 Hyperlipidemia, unspecified; I10 Essential (primary) hypertension; I77.9 Disorder of arteries and arterioles, unspecified; I48.91 Unspecified atrial fibrillation; Z87.891 Personal history of nicotine dependence; I25.2 Old myocardial infarction | CPT/HCPCS: 99214 ==

== ENCOUNTER 2022-08-10 11:32 | Outpatient (CLI) | payer MEDICARE, SELFPAY ==
--- NOTE | 2022-08-10 12:17 | MM_ITS ---
WS: [email or web address] BILATERAL SCREENING DIGITAL TOMOSYNTHESIS MAMMOGRAM WITH CAD HISTORY: SCREENING COMPARISON: 06/19/2019 and 01/24/2018 Bilateral CC and MLO views with tomosynthesis and synthetic mammography submitted. Computer aided det ection analyzed. Breast composition: There are scattered areas of fibroglandular density. No suspicious masses, microc alcifications or architectural distortion. Rodlike calcifications are stable in the anterior mid LEFT breast. Benign-appearing lymph nodes. MM/[place] [id number] IMPRESSION: BI-RADS: 2-Benign FOLLOW UP: 1 Year Follow-up
== END 2022-08-10 11:33 | disposition home or self-care (01) ==
LOC: RAD 11:36
PROVIDERS: PCP Nurse Practitioner Family; Visit Provider Nurse Practitioner Family
DX: Z12.31 Encounter for screening mammogram for malignant neoplasm of breast (principal)
CPT/HCPCS: 77063; 77067

== ENCOUNTER 2023-02-04 12:22 | Outpatient (CLI) | payer MEDICARE, SELFPAY ==
--- NOTE | 2023-02-04 13:14 | XR_ITS ---
WS: [email or web address] XR lumbar spine 2-3V* [id number] REASON FOR EXAM: LOW BACK PAIN FINDINGS: No significant scoliosis. Normal lordosis. No significant vertebral body abnormality. Mild to moderate narrowing of the disc spaces T12-L3 with moderate anterior vertebral body osteophyto sis. The disc spaces from L3 to S1 are intact and relatively well-preserved. No spondylolysis. No significant spondylolisthesis. 2 mm of anterolisthesis of L2 in relation to L1 and L3 in relation to L2. XR/XR lumbar spine 2-3V* [id number] IMPRESSION: Degenerative spondylosis as above. Relatively stable compared to 02/14/2019.
== END 2023-02-04 12:23 | disposition home or self-care (01) ==
PROVIDERS: PCP Nurse Practitioner Family; Visit Provider Nurse Practitioner Family
DX: M47.816 Spondylosis without myelopathy or radiculopathy, lumbar region (principal)
CPT/HCPCS: 72100

== ENCOUNTER 2023-02-25 06:42 | Emergency (ER) | payer MEDICARE, SELFPAY ==
[2023-02-25 06:43] VITALS: BP 88/72; PULSE 57; RESP 16; TEMP 36.5; O2SAT 99; BMI 41.8
--- NOTE | 2023-02-25 06:46 | ED_ITS ---
HPI - Fall General: Chief Complaint: Fall Stated Complaint: FALL Time Seen by Provider: 02/25/23 06:45 Source: patient Mode of arrival: EMS History of Present Illness: 77-year-old female who presents to the emergency room with complaints of low back pain and knee pain. Patient is on gabapentin a few weeks ago was increased from 303 times a day to 600mg, 3 times a day. She been doing relatively well with the change until last night when she took a double dose in the evening a total of 1200 mg in a single dose. She states she felt high . Last night around 10:00 while she was using her walker to ambulate her walker caught on something and she stumbled and fell. She was on the ground for about 2 hours before family member helped her to bed. She remained in bed until this morning when she went to try to get up to go to the bathroom with assistance of another family member she was unable to do so due to bilateral knee and low back pain. She denies striking her head she denies any back pain or head pain. There is never any loss of consciousness. MD complaint: fall Onset (ago): hour(s) Fall from: standing Place fall occurred: home Loss of consciousness: None Prolonged down time: hour(s) (2) Context: tripped/slipped Location of injury: back Location of injury - extremities: Bilateral: knee Associated symptoms-after fall: Denies abdominal pain, chest pain, confusion, difficulty walking, headache(s), hematuria, lightheadedness, neck pain, numbness, short of breath, vertigo or weakness Review of Systems Const: Denies: fever(s), chills, body aches, change in appetite, fatigue or malaise ENMT: Denies: throat pain, ear or mastoid pain, nasal discharge or nasal congestion Card: Denies: chest pain or lightheadedness Resp: Denies: dyspnea, productive cough or non-productive cough GI: Denies: abdominal pain : Denies: hematuria Musc: Denies: neck pain Skin/Breast: Denies: rash or pruritus Neuro: Denies: headache(s), difficulty walking, vertigo or confusion PFSH ED PFSH: Medical History Afib Carotid artery disease Diverticulitis Fibromyalgia History of nonmelanoma skin cancer HTN (hypertension) Hyperlipidemia Non-ST elevation LA (NSTEMI) Sinus bradycardia Surgical History History of appendectomy History of colonoscopy History of hysterectomy History of partial colectomy Family History Other CAD (coronary artery disease) Social History Smoking and tobacco status: former smoker Alcohol intake: never Physical Exam Const: GENERAL APPEARANCE: cooperative and comfortable ORIENTATION/CONSCIOUSNESS: Yes awake, Yes oriented to person, Yes oriented to place and Yes oriented to time HENMT: COMMON NORMALS: normocephalic, atraumatic and hearing grossly normal bilaterally HEAD & SCALP: normocephalic and atraumatic Resp: COMMON NORMALS: normal respiratory effort, No retractions, No use of accessory muscles and clear to auscultation bilaterally AUSCULTATION: clear to auscultation bilaterally Cardio: COMMON NORMALS: regular rate, regular rhythm and No murmurs present (Cardio) RATE: regular rate RHYTHM: regular rhythm GI: COMMON NORMALS: Soft to palpation and No hepatosplenomegaly present AUSCULTATION: Yes normoactive bowel sounds PALPATION: Yes Soft to palpation, No Tenderness to palpation present (GI), No Guarding due to palpation present (GI) and Yes No hepatosplenomegaly present Extremity: COMMON NORMALS: normal to inspection, capillary refill normal, no clubbing, cyanosis or edema, no calf tenderness and no pedal edema Neuro: SENSORIUM/ORIENTATION: Yes oriented to person, Yes oriented to place and Yes oriented to time Skin: COMMON NORMALS: no rashes or lesions noted GENERAL SKIN EXAM: no rashes or lesions noted Course Vital Signs: Vital signs: Vital Signs Temperature 97.7 F 02/25/23 06:43 Pulse Rate 54 L 02/25/23 07:03 Respiratory Rate 16 02/25/23 07:03 Blood Pressure 152/57 02/25/23 07:03 Pulse Oximetry 95 02/25/23 07:03 Oxygen Delivery Me thod Room Air 02/25/23 06:43 MDM - Fall Medical Decision Making Patient seen after an accidental overdose on her gabapentin she took 2 extra do ses of her gabapentin last night according to a family member. When I first talked to her she states she only taken 1. At this time she is awake alert and oriented. We will discharge patient home recommend that she not take any further gabapentin today and resume tomorrow. If she has any further problems return. Medical Records I reviewed the patient's medical records. Lab Data I reviewed the patient's lab results. 02/25/23 06:51 02/25/23 06:51 Radiology Impressions Knee X-Ray 02/25/23 07:00 IMPRESSION: 1. Moderate degenerative change. No fracture or joint effusion. Knee X-Ray 02/25/23 07:00 IMPRESSION: 1. Tricompartmental DJD. No acute fracture. 2. Chondrocalcinosis. Probable calcified loose joint bodies. Lumbar Spine CT 02/25/23 07:00 IMPRESSION: 1. No acute compression fractures. 2. Grade 1 anterolisthesis L4 on L5 with moderate to severe central canal stenosis similar in appearance to 2014. 3. Mild central canal stenosis L2-L3 and moderate central canal stenosis L3-L4. 4. Advanced facet arthropathy L4-L5 and L5-S1. Pelvis X-Ray 02/25/23 07:00 IMPRESSION: 1. No acute pelvic fracture. Laboratory Results WBC 7.5 10^3/uL (4.0-10.0) 02/25/23 06:51 RBC 4.14 10^6/uL (4.1-5.3) 02/25/23 06:51 Hgb 12.9 g/dL (11.5-15.3) 02/25/23 06:51 Hct 41.5 % (37.0-47.0) 02/25/23 06:51 MCV 100.2 fl (81-99) H 02/25/23 06:51 MCH 31.2 pg (28.0-34.0) 02/25/23 06:51 MCHC 31.1 g/dL (30.0-36.0) 02/25/23 06:51 RDW 13.1 % (12.1-15.1) 02/25/23 06:51 Plt Count 177 10^3/cmm (130-400) 02/25/23 06:51 MPV 9.3 fL (7.4-10.4) 02/25/23 06:51 Neut % (Auto) 52.3 % 02/25/23 06:51 Lymph % (Auto) 35.4 % 02/25/23 06:51 [place] % (Auto) 9.3 % 02/25/23 06:51 Eos % (Auto) 2.4 % 02/25/23 06:51 Baso % (Auto) 0.3 % 02/25/23 06:51 Neut # (Auto) 3.90 10^3/uL (1.8-7.7) 02/25/23 06:51 Lymph # (Auto) 2.6 10^3/uL (0.8-4.8) 02/25/23 06:51 [place] # (Auto) 0.7 10^3/uL (0.2-0.9) 02/25/23 06:51 Eos # (Auto) 0.2 10^3/uL (0.0-0.8) 02/25/23 06:51 Baso # (Auto) 0.0 10^3/uL (0.0-0.1) 02/25/23 06:51 Nucleated RBC % (auto) 0 % 02/25/23 06:51 Nucleated RBCs # 0.0 /100WBC 02/25/23 06:51 Sodium 143 mmol/L (136-145) 02/25/23 06:51 Potassium 4.2 mmol/L (3.5-5.1) 02/25/23 06:51 Chloride 107 mmol/L (98-107) 02/25/23 06:51 Carbon Dioxide 28 mmol/L (22-29) 02/25/23 06:51 Anion Gap 12.2 (5-19) 02/25/23 06:51 BUN 23 mg/dL (8-23) 02/25/23 06:51 Creatinine 1.1 mg/dL (0.5-0.9) H 02/25/23 06:51 GFR Calculation Not Reportable 02/25/23 06:51 Glucose 89 mg/dL (65-115) 02/25/23 06:51 Calculated Osmolality 299 mOsm/kg (285-295) H 02/25/23 06:51 Calcium 8.8 mg/dL (8.5-10.5) 02/25/23 06:51 Total Bilirubin 0.3 mg/dL (0.15-1.2) 02/25/23 06:51 AST 12 U/L (0-32) 02/25/23 06:51 ALT 11 U/L (0-33) 02/25/23 06:51 Alkaline Phosphatase 61 U/L (35-105) 02/25/23 06:51 Creatine Kinase 46 U/L (26-192) 02/25/23 06:51 Total Protein 7.1 g/dL (6.6-8.7) 02/25/23 06:51 Albumin 3.9 g/dL (3.5-5.2) 02/25/23 06:51 Globulin 3.2 g/dL (1.3-4.6) 02/25/23 06:51 Urine Color Yellow (Yellow) 02/25/23 08:16 Urine Appearance Clear (CLEAR) 02/25/23 08:16 Urine pH 5 (5-7) 02/25/23 08:16 Ur Specific [place] 1.020 (1.005-1.030) 02/25/23 08:16 Urine Protein Neg (Negative) 02/25/23 08:16 Urine Glucose (UA) Norm (Normal) 02/25/23 08:16 Urine Ketones Negative (Negative) 02/25/23 08:16 Urine Blood Neg (Negative) 02/25/23 08:16 Urine Nitrate Negative (Negative) 02/25/23 08:16 Urine Bilirubin Neg (Negative) 02/25/23 08:16 Urine Urobilinogen Neg mg/dL (Negative) 02/25/23 08:16 Ur Leukocyte Esterase Negative (Negative) 02/25/23 08:16 Discharge Plan Discharge Patient Disposition: Home Clinical Impression: Accidental overdose, Fall Condition: Stable Prescriptions: No Action omeprazole 20 mg capsule,delayed release(DR/EC) 20 mg PO BID bupropion HCl 150 mg tablet sustained-release 12 hr 150 mg PO DAILY@2100 cetirizine [Zyrtec] 10 mg Tablet 10 mg PO DAILY@0900 lamotrigine 25 mg tablet 50 mg PO BID@09,21 propafenone 225 mg tablet 225 mg PO TID hydrocodone-acetaminophen 7.5-325 mg tablet 1 tab PO QID PRN (Reason: Pain) losartan 25 mg tablet 25 mg PO DAILY@09 gabapentin 300 mg capsule See Rx Instructions .ROUTE .COMPLEX Rx Instructions: 300mg po at 0900, 300mg po 1500, and 600mg at bedtime metoprolol tartrate 25 mg tablet 12.5 mg PO BID@09,21 Pradaxa 150 mg capsule 150 mg PO BID@,21 rosuvastatin [Crestor] 10 mg Tablet 20 mg PO DAILY@2100 Qty: 0 0RF Discharge Orders: Discharge ED (Routine); Ordered 02/25/23 Ordered By: Desmond Costa Referrals: Socorro Schrader FNP [Primary Care Provider] - Discharge Diet: Usual diet Discharge Activity: Increase activity as tolerated Patient Instructions: Opioid Safety, Pain Management Activity Restrictions/Additional Instructions: You were seen today about a fall. This is likely precipitated by the extra doses of gabapentin you accidentally took. Recommend not taking any more gabapentin today and resume your regularly prescribed schedule tomorrow. We also recommend having family assist you with your medications. If that is not feasible recommend you talk your primary care doctor about having home health care assist you with medications. Imaging today showed no fractures but you likely will be sore for the next several days. Return if you have further problems. Coding Level of Care Code ED Nipple Machine Operator for Bella Loen
--- NOTE | 2023-02-25 07:00 | XR_ITS ---
WS: [email or web address] Exam: XR knee LT 3V* [id number] Date/Time of Exam: 02/25/2023 7:00 AM Reason For Exam: fall No acute fracture or dislocation. Moderate degenerative change of the patellofemoral joint and the me dial joint compartment. Probable calcified loose joint bodies. Normal soft tissues. No joint effusion . XR/XR knee LT 3V* [id number] IMPRESSION: 1. Moderate degenerative change. No fracture or joint effusion.
--- NOTE | 2023-02-25 07:00 | XR_ITS ---
WS: [email or web address] Exam: XR pelvis 1-2V* [id number] Date/Time of Exam: 02/25/2023 7:00 AM Reason For Exam: fall Comparison 02/14/2019. No pelvic fracture identified. The hips are intact. Degenerative changes of the SI joints. Bony koehler es of the pelvis and hips that suggest diffuse idiopathic skeletal hyperostosis. XR/XR pelvis 1-2V* [id number] IMPRESSION: 1. No acute pelvic fracture.
--- NOTE | 2023-02-25 07:00 | XR_ITS ---
WS: [email or web address] Exam: XR knee RT 3V* [id number] Date/Time of Exam: 02/25/2023 7:00 AM Reason For Exam: fall No acute fracture or dislocation. Tricompartmental DJD. Chondrocalcinosis of the lateral meniscus. Pr obable calcified loose joint bodies. Normal soft tissues. No joint effusion. XR/XR knee RT 3V* [id number] IMPRESSION: 1. Tricompartmental DJD. No acute fracture. 2. Chondrocalcinosis. Probable calcified loose joint bodies.
--- NOTE | 2023-02-25 07:00 | CT_ITS ---
WS: [email or web address] CT LUMBAR SPINE TECHNIQUE: Noncontrast CT of the lumbar spine with coronal and sagittal reformatted images. CLINICAL INFORMATION: trauma/fall/back pain COMPARISON: 2014 DLP: 1219.[address] scans at [facility] use at least one of these dose optimization techniques: automated e xposure control; mA and/or kV adjustment per patient size (includes targeted exams where dose is matc hed to clinical indication); or iterative reconstruction. FINDINGS: Mild lumbar curve with slight anterolisthesis L4 on L5. Disc space narrowing L4-L5 with vacuum disc p henomenon. No acute compression fractures. L1-L2: Moderate facet arthropathy. Spinal canal and foramen are patent. L2-L3: Mild disc bulging with mild central canal stenosis. Moderate to advanced facet arthropathy. Fo ramen are patent. L3-L4: Slight retrolisthesis L3 on L4 with mild central canal stenosis. Advanced facet arthropathy. M ild bilateral foraminal narrowing. Ligamentum flavum hypertrophy. L4-L5: Moderate to severe central canal stenosis. Advanced facet arthropathy. Ligamentum flavum hyper trophy. Vacuum disc phenomenon. Mild LEFT greater than RIGHT foraminal narrowing. L5-S1: Mild annular bulging. Spinal canal and foramen are patent. Advanced facet arthropathy.. Visualized pelvic bony structures: Normal. Paravertebral soft tissues: Normal. CT/CT lumbar spine wo con* [id number] IMPRESSION: 1. No acute compression fractures. 2. Grade 1 anterolisthesis L4 on L5 with moderate to severe central canal sten osis similar in appearance to 2014. 3. Mild central canal stenosis L2-L3 and moderate central canal stenosis L3-L4 . 4. Advanced facet arthropathy L4-L5 and L5-S1.
[2023-02-25 07:03] VITALS: BP 152/57; PULSE 54; RESP 16; O2SAT 95
--- NOTE | 2023-02-25 07:07 | ECG_ITS ---
[facility] Test Date: 2023-02-25 Pat Name: Sandra Mcgrath Department: Room: Gender: Female Wagon Winder: : 1945 Requested By: Desmond Tyler Order Number: [id number] Gen MD: Chandler Cadena M.D. Measurements Intervals [place] Rate: 53 P: 46 [place]: 208 QRS: 17 QRSD: 99 T: 32 QT: 447 QTc: 420 Interpretive Statements SINUS BRADYCARDIA LOW QRS VOLTAGE IN PRECORDIAL LEADS [QRS DEFLECTION < 1.0 mV IN CHEST LEADS] MINIMAL ST DEPRESSION [0.025+ mV ST DEPRESSION] Compared to ECG 02/07/2021 16:17:24 ST (T wave) deviation now present T-wave abnormality no longer present Electronically Signed On 02-25-2023 16:14:09 CDT by Chandler Cadena M.D. [id number]
[2023-02-25 07:11] LABS: Basophils % 0.3 %; Eosinophils # 0.2 10^3/uL (0.0-0.8); Eosinophils % 2.4 %; Hematocrit 41.5 % (37.0-47.0); Hemoglobin 12.9 g/dL (11.5-15.3); Lymphocytes # 2.6 10^3/uL (0.8-4.8); Lymphocytes % 35.4 %; Mean Corpuscular HGB Conc 31.1 g/dL (30.0-36.0); Mean Corpuscular Hemoglobin 31.2 pg (28.0-34.0); Mean Corpuscular Volume 100.2 fl (81-99); Mean Platelet Volume 9.3 fL (7.4-10.4); Monocytes # 0.7 10^3/uL (0.2-0.9); Monocytes % 9.3 %; Neutrophils % 52.3 %; Nucleated Red Blood Cells % 0 %; Platelet Count 177 10^3/cmm (130-400); Red Blood Count 4.14 10^6/uL (4.1-5.3); Red Cell Distribution Width 13.1 % (12.1-15.1); White Blood Count 7.5 10^3/uL (4.0-10.0)
[2023-02-25 07:29] LABS: Alanine Aminotransferase 11 U/L (0-33); Albumin Level 3.9 g/dL (3.5-5.2); Alkaline Phosphatase 61 U/L (35-105); Anion Gap 12.2 (5-19); Aspartate Amino Transferase 12 U/L (0-32); Blood Urea Nitrogen 23 mg/dL (8-23); Calcium 8.8 mg/dL (8.5-10.5); Carbon Dioxide 28 mmol/L (22-29); Chloride 107 mmol/L (98-107); Creatine Phosphokinase 46 U/L (26-192); Globulin 3.2 g/dL (1.3-4.6); Glucose 89 mg/dL (65-115); Osmolality Calculated 299 mOsm/kg (285-295); Potassium 4.2 mmol/L (3.5-5.1); Sodium 143 mmol/L (136-145); Total Bilirubin 0.3 mg/dL (0.15-1.2); Total Protein 7.1 g/dL (6.6-8.7)
[2023-02-25 08:34] LABS: Add Urine Microscopic? NO; Charge for UA Resulting for Rev
[2023-02-25 08:39] LABS: Urine Appearance Clear (CLEAR); Urine Color Yellow (Yellow)
[2023-02-25 08:40] LABS: Bilirubin Urine Neg (Negative); Blood Urine Neg (Negative); Glucose Urine UA Norm (Normal); Ketones Urine Negative (Negative); Leukocyte Esterase Urine Negative (Negative); Nitrate Urine Negative (Negative); Protein Urine Neg (Negative); Urobilinogen Urine Neg (Negative); pH Urine 5 (5-7)
== END 2023-02-25 10:00 | disposition home or self-care (01) ==
PROVIDERS: Emergency Provider Family Medicine; PCP Nurse Practitioner Family
DX: T42.6X1A Poisoning by other antiepileptic and sedative-hypnotic drugs, accidental (unintentional), initial encounter (principal); W18.39XA Other fall on same level, initial encounter; I10 Essential (primary) hypertension; E78.5 Hyperlipidemia, unspecified; I25.2 Old myocardial infarction; Z87.891 Personal history of nicotine dependence
CPT/HCPCS: 72131; 72170; 73562; 80053; 81003; 82550; 85025; 93005; 99285

== ENCOUNTER → 2023-04-05 12:48 | Outpatient (BNVA) | payer MEDICARE, SELFPAY | PROVIDERS: PCP Nurse Practitioner Family; Visit Provider Internal Medicine | DX: I48.91 Unspecified atrial fibrillation (principal); R00.1 Bradycardia, unspecified; E78.5 Hyperlipidemia, unspecified; I10 Essential (primary) hypertension; I77.9 Disorder of arteries and arterioles, unspecified; Z87.891 Personal history of nicotine dependence | CPT/HCPCS: 99214 ==

== ENCOUNTER 2023-06-03 14:08 | Outpatient (CLI) | payer MEDICARE, SELFPAY ==
--- NOTE | 2023-06-03 14:18 | MR_ITS ---
WS: [email or web address] MRI LUMBAR SPINE NONCONTRAST TECHNIQUE: Sagittal T1, T2 and STIR imaging. Axial T1 and T2 imaging. CLINICAL INFORMATION: LOW BACK PAIN COMPARISON: CT February 25, 2023 and MRI 2013 FINDINGS: Mild lumbar curve. No acute compression. Slight anterolisthesis L4 on L5. L1-L2: Mild annular bulging. Moderate facet arthropathy. Slight narrowing of the subarticular recess bilaterally. Spinal canal and foramen are patent. L2-L3: Mild annular bulging. Slight narrowing of the subarticular recess bilaterally RIGHT greater th an LEFT. Moderate facet arthropathy. Spinal canal and foramen are patent. L3-L4: Slight retrolisthesis L3 on L4. Mild annular bulging with slight impingement traversing L4 ner ve roots bilaterally LEFT greater than RIGHT. Moderate facet arthropathy ligamentum flavum hypertroph y. Mild LEFT foraminal narrowing. Slight contact of the exiting LEFT L3 nerve root. Tiny LEFT synovia l cyst contributes to stenosis measuring 5.5 mm. Mild RIGHT foraminal narrowing. L4-L5: Slight anterolisthesis L4 on L5. Mild disc bulging and osteophytic ridging. Moderate central c anal stenosis. Impingement on traversing LEFT greater than RIGHT L5 nerve roots. Advanced facet arthr opathy with ligamentum flavum hypertrophy. L5-S1: Mild annular bulging. Moderate facet arthropathy. Spinal canal and foramen are patent. Small peripelvic renal cysts. Visualized pelvic bony structures: Normal. Paravertebral soft tissues: Normal. Overall findings are similar to the MRI 2014. Impression of the slight anterolisthesis L4 on L5. Central canal stenosis at L4-L5 appears stable. MR/MR lumbar spine wo con* [id number] IMPRESSION: 1. Mild lumbar curve. No acute compression. Slight anterolisthesis L4 on L5 pr ogressed since 2013 2. Mild central canal stenosis L3-L4 with narrowing of the LEFT greater than R IGHT subarticular recess. 3. Moderate central canal stenosis L4-L5 with impingement traversing L5 nerve roots with moderate facet arthropathy ligament flavum hypertrophy. 4. Annular bulging L2-L3 with slight impingement on the RIGHT subarticular rec ess and traversing RIGHT L3 nerve root. 5. Mild LEFT L3-L4 foraminal narrowing with a small LEFT foraminal protrusion and tiny synovial cyst. 6. Moderate to advanced facet arthropathy L4-L5 and L5-S1.
== END 2023-06-03 14:09 | disposition home or self-care (01) ==
PROVIDERS: PCP Nurse Practitioner Family; Visit Provider Nurse Practitioner Family
DX: M48.061 Spinal stenosis, lumbar region without neurogenic claudication (principal); M51.26 Other intervertebral disc displacement, lumbar region
CPT/HCPCS: 72148

== ENCOUNTER 2023-12-07 13:14 | Inpatient (IN) | payer MEDICARE, SELFPAY ==
[2023-12-07] VITALS (19 sets, daily range): BP systolic 126–199; BP diastolic 62–113; PULSE 57–71; RESP 13–26; TEMP 36.3–37.1; O2SAT 88–95; BMI 44.4
--- NOTE | 2023-12-07 13:18 | ECG_ITS ---
[facility] Test Date: 2023-12-07 Pat Name: Sandra Mcgrath Department: Room: Gender: Female Director Of Neurology: : 1945 Requested By: Desmond Tyler Order Number: [id number] Gen MD: Ronak Eckert M.D. Measurements Intervals [place] Rate: 56 P: 61 [place]: 188 QRS: 9 QRSD: 102 T: 52 QT: 437 QTc: 423 Interpretive Statements SINUS BRADYCARDIA LOW QRS VOLTAGE IN PRECORDIAL LEADS [QRS DEFLECTION < 1.0 mV IN CHEST LEADS] NONSPECIFIC ST & T-WAVE ABNORMALITY Compared to ECG 02/25/2023 07:07:54 T-wave abnormality now present ST (T wave) deviation no longer present Electronically Signed On 12-07-2023 13:41:44 THERMOSCREW OPERATOR by Ronak Eckert M.D. [id number] f
--- NOTE | 2023-12-07 13:18 | XR_ITS ---
WS: [email or web address] XR chest 1V portable [id number] REASON FOR EXAM: chest pain FINDINGS: The chest is unchanged compared to 02/07/2021. Mild tortuosity of the thoracic aorta. Heart size at the upper limits of normal. Calcified granulomas disease in both hemithoraces. No acute pulmonary parenchymal or pleural abnormality. Moderate degenerative spondylosis in the mid and lower thoracic spine. IMPRESSION: Stable chest without acute abnormality.
--- NOTE | 2023-12-07 13:19 | ED_ITS ---
HPI - Chest Pain 2 General: Chief Complaint: Chest Pain Stated Complaint: Chest Pain Time Seen by Provider: 12/07/23 13:17 Source: patient Mode of arrival: ambulatory History of Present Illness: 78-year-old female with a history of rep orted NV. According to old records she had an NSTEMI with a normal coronary angiogram done shortly after that however she did have significant troponin changes with a positive delta of over 200. She had no intervention done at that time. Today she presents complaining of chest pain that began while defecating. It has been persistent since then. She has not had any radiation of the pain no shortness of breath. She is not diabetic. She is on Crestor no clopidogrel or aspirin at this time. MD complaint: chest pain Onset (ago): hour(s) Timing of current episode: episodic Prior episodes: Yes Onset: during rest (While defecating) Pain location: substernal Pain radiation: none Quality: aching and heaviness Relieving factors: nitroglycerin Exacerbating factors: nothing Associated symptoms: Deny abdominal pain, diaphoresis, dyspnea, fever(s), leg edema, nausea, palpitations, sense of impending doom, syncope or vomiting Review of Systems 2 Const: Denies: fever(s), chills or diaphoresis Card: Reports: chest pain and dyspnea on exertion; Denies: palpitations, syncope or orthopnea Resp: Denies: dyspnea GI: Denies: abdominal pain, nausea or vomiting : Denies: dysuria, urinary frequency or urinary urgency Musc: Denies: neck pain or back pain Skin/Breast: Denies: rash PFSH ED 2 PFSH: Medical History (Updated 12/07/23 @ 17:25 by Chandler Cadena MD) Elevated troponin BCC (basal cell carcinoma of skin) Carotid artery disease Hyperlipidemia Non-ST elevation [place] (NSTEMI) History of nonmelanoma skin cancer Fibromyalgia Afib Sinus bradycardia Diverticulitis HTN (hypertension) Surgical History History of partial colectomy History of colonoscopy History of hysterectomy History of appendectomy Family History Other CAD (coronary artery disease) Social History Smoking and tobacco/nicotine status: former use of tobacco/nicotine Alcohol intake: never Physical Exam 2 Const: COMMON NORMALS: no acute distress GENERAL APPEARANCE: cooperative and comfortable ORIENTATION/CONSCIOUSNESS: Yes awake, Yes oriented to person, Yes oriented to place and Yes oriented to time HENMT: COMMON NORMALS: normocephalic, atraumatic and hearing grossly normal bilaterally HEAD & SCALP: normocephalic and atraumatic Resp: COMMON NORMALS: normal respiratory effort, No retractions, No use of accessory muscles and clear to auscultation bilaterally AUSCULTATION: clear to auscultation bilaterally Cardio: COMMON NORMALS: regular rate, regular rhythm and No murmurs present (Cardio) RATE: regular rate RHYTHM: regular rhythm GI: COMMON NORMALS: Soft to palpation and No hepatosplenomegaly present A USCULTATION: Yes normoactive bowel sounds PALPATION: Yes Soft to palpation, No Tenderness to palpation present (GI), No Guarding due to palpation present (GI) and Yes No hepatosplenomegaly present Extremity: COMMON NORMALS: normal to inspection, capillary refill normal, no clubbing, cyanosis or edema, no calf tenderness and no pedal edema Neuro: SENSORIUM/ORIENTATION: Yes oriented to person, Yes oriented to place and Yes oriented to time Skin: COMMON NORMALS: no rashes or lesions noted GENERAL SKIN EXAM: no rashes or lesions noted Course 2 Vital Signs: Vital signs: Vital Signs Temperature 98 F 12/09/23 04:00 Pulse Rate 63 12/09/23 05:47 Respiratory Rate 13 12/09/23 04:00 Blood Pressure 104/46 12/09/23 04:00 Pulse Oximetry 90 12/09/23 04:00 Oxygen Delivery Me thod Room Air 12/08/23 12:00 MDM - Chest Pain Medical Decision Making Trope +[address] changes. Patient had an angiogram on 02/07/2021 was read as negative by Dr. Oliver. Heparin started also initiate nitroglycerin will admit and consult cardiology. Medical Records I reviewed the patient's medical records. Lab Data I reviewed the patient's lab results. 12/08/23 06:12 12/08/23 06:12 Laboratory Results WBC 6.81 10^3/uL (3.29-11.43) 12/07/23 13:27 RBC 4.14 10^6/uL (3.85-5.65) 12/07/23 13:27 Hgb 13.10 g/dL (11.27-16.99) 12/07/23 13:27 Hct 40.9 % (36-47) 12/07/23 13:27 MCV 98.8 fl (85-98) H 12/07/23 13:27 MCH 31.6 pg (27-33) 12/07/23 13:27 MCHC 32.0 g/dL (30-55) 12/07/23 13:27 RDW 12.8 % (12.1-15.1) 12/07/23 13:27 Plt Count 177 10^3/cmm (157-399) 12/07/23 16:28 MPV 9.2 fL (7.4-10.4) 12/07/23 13:27 Neut % (Auto) 54.2 % 12/07/23 13:27 Lymph % (Auto) 35.1 % 12/07/23 13:27 Sequoyah % (Auto) 8.1 % 12/07/23 13:27 Eos % (Auto) 2.2 % 12/07/23 13:27 Baso % (Auto) 0.3 % 12/07/23 13:27 Neut # (Auto) 3.69 10^3/uL (1.8-7.7) 12/07/23 13:27 Lymph # (Auto) 2.4 10^3/uL (0.8-4.8) 12/07/23 13:27 Sequoyah # (Auto) 0.6 10^3/uL (0.2-0.9) 12/07/23 13:27 Eos # (Auto) 0.2 10^3/uL (0.0-0.8) 12/07/23 13:27 Baso # (Auto) 0.0 10^3/uL (0.0-0.1) 12/07/23 13:27 Nucleated RBC % (auto) 0 % 12/07/23 13:27 Nucleated RBCs # 0.0 /100WBC 12/07/23 13:27 Sodium 142 mmol/L (136-145) 12/07/23 13:27 Potassium 3.8 mmol/L (3.5-5.1) 12/07/23 13:27 Chloride 106 mmol/L (98-107) 12/07/23 13:27 Carbon Dioxide 27 mmol/L (22-29) 12/07/23 13:27 Anion Gap 12.8 (5-19) 12/07/23 13:27 BUN 15 mg/dL (8-23) 12/07/23 13:27 Creatinine 0.9 mg/dL (0.5-0.9) 12/07/23 13:27 GFR Calculation Not Reportable 12/07/23 13:27 Glucose 133 mg/dL (65-115) H 12/07/23 13:27 Calculated Osmolality 297 mOsm/kg (285-295) H 12/07/23 13:27 Calcium 9.0 mg/dL (8.5-10.5) 12/07/23 13:27 Iron 85 ug/dL (37-145) 12/07/23 15:32 TIBC 281 mcg/dl 12/07/23 15:32 % Saturation 30.2 % (20-50) 12/07/23 15:32 Unsat Iron Binding 196 ug/dL (112-347) 12/07/23 15:32 Total Bilirubin 0.3 mg/dL (0.15-1.2) 12/07/23 13:27 AST 15 U/L (0-32) 12/07/23 13:27 ALT 13 U/L (0-33) 12/07/23 13:27 Alkaline Phosphatase 58 U/L (35-105) 12/07/23 13:27 Troponin T Baseline 17 ng/L (0-10) H 12/07/23 13:27 Troponin T 120 Minute 110.5 ng/L (0-10) H 12/07/23 15:32 Delta Troponin T 93.5 ABS# (0-10) H* 12/07/23 15:32 Total Protein 6.8 g/dL (6.6-8.7) 12/07/23 13:27 Albumin 3.6 g/dL (3.5-5.2) 12/07/23 13:27 Globulin 3.2 g/dL (1.3-4.6) 12/07/23 13:27 Vitamin B12 271 pg/mL (232-1245) 12/07/23 15:32 TSH 1.50 uIU/mL (0.27-4.20) 12/07/23 15:32 All radiology interpretation(s) finalized by discharge Discharge Plan Discharge Patient Disposition: Admitted As Inpatient Admit Provider: Luisana Tucker Clinical Impression: Non-ST elevation [place] (NSTEMI), Hyperlipidemia, HTN (hypertension), Mild cognitive impairment with memory loss Condition: Stable Coding Level of Care Code ED [employer] for [facility]
[2023-12-07 13:34] LABS: Basophils % 0.3 %; Eosinophils # 0.2 10^3/uL (0.0-0.8); Eosinophils % 2.2 %; Hematocrit 40.9 % (36-47); Lymphocytes # 2.4 10^3/uL (0.8-4.8); Lymphocytes % 35.1 %; Mean Corpuscular Hemoglobin 31.6 pg (27-33); Mean Corpuscular Volume 98.8 fl (85-98); Mean Platelet Volume 9.2 fL (7.4-10.4); Monocytes # 0.6 10^3/uL (0.2-0.9); Monocytes % 8.1 %; Neutrophils # 3.69 10^3/uL (1.8-7.7); Neutrophils % 54.2 %; Nucleated Red Blood Cells % 0 %; Platelet Count 175 10^3/cmm (157-399); Red Blood Count 4.14 10^6/uL (3.85-5.65); Red Cell Distribution Width 12.8 % (12.1-15.1); White Blood Count 6.81 10^3/uL (3.29-11.43)
[2023-12-07 13:52] LABS: Alanine Aminotransferase 13 U/L (0-33); Albumin Level 3.6 g/dL (3.5-5.2); Alkaline Phosphatase 58 U/L (35-105); Anion Gap 12.8 (5-19); Aspartate Amino Transferase 15 U/L (0-32); Blood Urea Nitrogen 15 mg/dL (8-23); Carbon Dioxide 27 mmol/L (22-29); Chloride 106 mmol/L (98-107); Globulin 3.2 g/dL (1.3-4.6); Glucose 133 mg/dL (65-115); Osmolality Calculated 297 mOsm/kg (285-295); Potassium 3.8 mmol/L (3.5-5.1); Sodium 142 mmol/L (136-145); Total Bilirubin 0.3 mg/dL (0.15-1.2); Total Protein 6.8 g/dL (6.6-8.7); Troponin(5th) Baseline 17 ng/L (0-10)
[2023-12-07] MEDS: lidocaine 2% viscous 15 ML, aluminum-mag hydrox-simethicon 30 ML, sucralfate oral liq 1 GM PO (14:47)
--- NOTE | 2023-12-07 15:23 | ECG_ITS ---
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 Measurements Intervals [place] Rate: 54 P: 69 OR: 186 QRS: 19 QRSD: 97 T: 55 QT: 453 QTc: 431 Interpretive Statements SINUS BRADYCARDIA LOW QRS VOLTAGE IN PRECORDIAL LEADS [QRS DEFLECTION < 1.0 mV IN CHEST LEADS] MODERATE ST DEPRESSION [0.05+ mV ST DEPRESSION] Compared to ECG 12/07/2023 13:18:43 ST (T wave) deviation now present T-wave abnormality no longer present Electronically Signed On 12-07-2023 16:43:33 [employer] by Ronak Eckert M.D. [id number]
[2023-12-07 16:11] LABS: Troponin 5 2HR 110.5 ng/L (0-10); Troponin 5 2HR Delta 93.5 ABS# (0-10)
[2023-12-07] MEDS: morphine 4 mg/mL SDV 1 mL IVP (16:32)
[2023-12-07] MEDS: ondansetron 2 mg/ML SDV 2 mL 4 MG IVP (16:32)
[2023-12-07 16:44] LABS: Platelet Count 177 10^3/cmm (157-399)
[2023-12-07] MEDS: nitroglycerin drip 50 MG/250 ML PREMIX IV (16:45)
--- NOTE | 2023-12-07 16:49 | P.HP_ITS ---
Providers/Chief Complaint 2 Primary Care Provider: CRISTIAN Willson Chief Complaint: Chest Pain History of Present Illness Sandra Mcgrath is a 78 year old female with past medical history of atrial fibrillation on chronic anticoagulation with Pradaxa, hyperlipidemia, CAD, hypothyroidism, hypertension who was last admitted to the hospital with chest pain in 2020 when she had a cardiac angiogram which was reported to be normal presented to the ER today after having chest pain while she was having a bowel movement at around noon today associated with mild difficulty in breathing radiating to back and neck. Chest pain subsided after she was started on nitro drip. Patient denies of having any similar episodes since last episode both at rest and on exertion. Does not check her blood pressures at home though states he takes medications regularly. In the ER she was found to have non-ST elevation NJ and was started on nitro and heparin drip. Cardiology was consulted. On examination patient states chest pressure and pain for now is better but still there at rest. Blood pressure during examination was 188 over 90 mmHg Review of Systems 2 General: Reports: 10 or more systems reviewed and unremarkable except in HPI and below Const: Denies: fever(s), chills, body aches, change in appetite, change in weight, malaise, night sweats, diaphoresis, change in sleep pattern, daytime sleepiness or snoring Eyes: Denies: change in vision, blurry vision, photophobia, eye discomfort or eye discharge ENMT: Denies: throat pain, enlarged tonsils, hoarseness, mouth pain, oral sores, dry mouth, tinnitus, nasal congestion or post nasal drip Card: Denies: chest pain, palpitations, irregular heart rhythm, edema, swelling of feet/ankles, lightheadedness, syncope, pre-syncope, dyspnea on exertion, orthopnea, leg pain with exertion or acrocyanosis Resp: Denies: dyspnea, productive cough, non-productive cough, wheezing, stridor, pain on inspiration, change in phlegm color, hemoptysis or chest congestion GI: Denies: abdominal pain, nausea, vomiting, hematemesis, coffee ground emesis, dysphagia, heartburn, diarrhea, constipation, bloating, GI cramping, change in bowel habits, pain on defecation, hematochezia or melena : Denies: flank pain, dysuria, urinary frequency, urinary urgency, urinary hesitancy, nocturia or hematuria Musc: Denies: neck pain, back pain, extremity pain, joint pain, joint swelling, joint redness, joint stiffness or limited range of motion Neuro: Denies: headache(s), numbness in extremities, weakness in extremities, sensory changes, lack of coordination, difficulty walking, frequent falls, dizziness, vertigo, confusion, Slurred speech present, difficulty communicating thoughts or seizure-like activity Psych: Denies: anxiety, depression, mood swings, panic attacks, hopelessness or irritability Endo: Denies: polyuria, polydipsia, tired all the time, cold intolerance, excessive sweating, flushing or heat intolerance Uriel/Lymph: Denies: easy bruising or easy bleeding All/Imm: Denies: tongue swelling, facial swelling or acute wheezing Medications/Allergies Home Medications Medication Instructions Recorded Confirmed Last Taken Type bupropion HCl 150 mg tablet,12 hr 150 mg PO DAILY@209901/14/20 12/07/23 12/06/23 History sustained-release cetirizine 10 mg tablet (Zyrtec) 10 mg PO DAILY@0901/14/20 12/07/23 12/07/23 History dabigatran etexilate 150 mg 150 mg PO BID@01/14/20 12/07/23 12/07/23 History capsule (Pradaxa) gabapentin 300 mg capsule 300 mg PO TID 01/14/20 12/07/23 12/07/23 History hydrocodone 7.5 mg-acetaminophen 1 tab PO Q6H 01/14/20 12/07/23 12/07/23 History 325 mg tablet lamotrigine 25 mg tablet 75 mg PO BID@01/14/20 12/07/23 12/07/23 History losartan 25 mg tablet 25 mg PO DAILY@01/14/20 12/07/23 12/07/23 History propafenone 225 mg tablet 225 mg PO TID 01/14/20 12/07/23 12/07/23 History famotidine 20 mg tablet 20 mg PO DAILY 12/07/23 12/07/23 12/07/23 History levothyroxine 50 mcg tablet 50 mcg PO DAILY 12/07/23 12/07/23 12/07/23 History rosuvastatin 10 mg tablet (Crestor) 10 mg PO DAILY@2100 12/07/23 12/07/23 12/06/23 History Allergies Allergy/AdvReac Type Severity Reaction Status Date / Time bacitracin Allergy ALGY-Rash Verified 12/07/23 15:09 [From Neosporin ([id number])] codeine Allergy ADR-Shakine Verified 12/07/23 15:09 ss neomycin Allergy ALGY-Rash Verified 12/07/23 15:09 [From Neosporin ([id number])] petrolatum,white Allergy ALGY-Rash Verified 12/07/23 15:09 [From Petroleum Jelly] polymyxin B Allergy ALGY-Rash Verified 12/07/23 15:09 [From Neosporin ([id number])] PFSH Acute 2 PFSH: Medical History (Updated 12/07/23 @ 17:25 by Chandler Cadena MD) Elevated troponin BCC (basal cell carcinoma of skin) Carotid artery disease Hyperlipidemia Non-ST elevation [place] (NSTEMI) History of nonmelanoma skin cancer Fibromyalgia Afib Sinus bradycardia Diverticulitis HTN (hypertension) Surgical History History of partial colectomy History of colonoscopy History of hysterectomy History of appendectomy Family History Other CAD (coronary artery disease) Social History Smoking and tobacco/nicotine status: former use of tobacco/nicotine Alcohol intake: never Vitals/I&O/Wt Last Vital Signs Temp 98.8 F 12/07/23 13:20 Pulse 57 L 12/07/23 13:20 Resp 16 12/07/23 13:20 BP 155/77 12/07/23 13:20 Pulse Ox 93 12/07/23 13:20 O2 Del Method Room Air 12/07/23 13:20 Weight last 48 hrs Weight 124.738 kg Physical Exam 2 Narrative: General: No acute distress, AO x3 HEENT: PERRLA, pupils bilaterally equal and reactive Chest: Normal vesicular breath sounds, no added sounds, equal good air entry bilaterally CVS: S1-S2 regular, no murmurs, no tachycardia, no gallops, no rubs Abdomen: Soft, nontender, no organomegaly, bowel sounds present Neuro: No focal deficits, no facial deformity, AO x3, power 5/5 in all limbs Data 12/07/23 16:28 12/07/23 13:27 A&P Assessment and plan (1) Non-ST elevation NJ (NSTEMI): Positive delta troponin in the ER. Continue with troponin cycle. Cardiology has been consulted. Started on heparin drip and nitro drip. Last cardiac angiogram in 2020 showed normal coronaries with echocardiogram showing a normal EF without regional wall motion normality. 81 mg of aspirin daily, 80 mg of atorvastatin nightly. Check A1c, lipid panel. Patient on propafenone 225 mg 3 times daily. Will continue for now. Check echocardiogram. We will discuss with cardiology about possible cardiac angiogram versus stress test. (2) Afib: Currently rate controlled with bradycardia. Switched Pradaxa to heparin drip for now. Continue with propafenone at home dose. (3) Sinus bradycardia: (4) Carotid artery disease: (5) Hyperlipidemia: (6) HTN (hypertension): Goal blood pressure less than 140/90 mmHg. Continue with home dose of losartan for now. Will uptitrate as for goal blood pressures. Plan Cardiac diet, n.p.o. after midnight Heparin drip will suffice as DVT prophylaxis Protonix for PUD prophylaxis Full code Attestations 2 Medical Necessity Statement*: Admission for more than 2 midnights for management of non-ST elevation NJ in a patient with history of chronic A-fib on Pradaxa Diagnoses Non-ST elevation NJ (NSTEMI) I21.4 Afib I48.91 Sinus bradycardia R00.1 Carotid artery disease I77.9 Hyperlipidemia E78.5 HTN (hypertension) I10
[2023-12-07] MEDS: heparin 5,000 unit/mL INJ 1 mL IV (17:16)
--- NOTE | 2023-12-07 17:19 | P.CONIM_ITS ---
Providers/Reason For Consult 2 Consulting Physician/Specialty*: Cardiovascular medicine Reason for Consult*: Chest pain elevated troponin Requesting Physician: Emergency room Primary Care Provider: CRISTIAN Willson History of Present Illness History of Present Illness Sandra Mcgrath is a 78 year old female with no known history of coronary artery disease. She presented similarly in January 2021 with chest pain and elevation in her troponin. At that time her troponins were 678, 737 and 896. She underwent urgent coronary angiography which was normal. She has a history of carotid stenosis, dyslipidemia, fibromyalgia, atrial fibrillation and hypertension. Today she was sitting on the toilet struggling to have a bowel movement and developed chest pain. She came into the emergency room by ambulance. Here her first troponin is 17 and the second is 110. She states that she still having a little bit of chest discomfort. Her electrolytes, BUN, creatinine and CBC are normal. Her EKG showed nonspecific ST and T wave changes but are unchanged from her EKGs from January 2021. Review of Systems 2 Narrative: Review of systems is negative Medications/Allergies Home Medications Medication Instructions Recorded Confirmed Last Taken Type bupropion HCl 150 mg tablet,12 hr 150 mg PO DAILY@2100 01/14/20 12/07/23 12/06/23 History sustained-release cetirizine 10 mg tablet (Zyrtec) 10 mg PO DAILY@0900 01/14/20 12/07/23 12/07/23 History dabigatran etexilate 150 mg 150 mg PO BID@01/14/20 12/07/23 12/07/23 History capsule (Pradaxa) gabapentin 300 mg capsule 300 mg PO TID 01/14/20 12/07/23 12/07/23 History hydrocodone 7.5 mg-acetaminophen 1 tab PO Q6H 01/14/20 12/07/23 12/07/23 History 325 mg tablet lamotrigine 25 mg tablet 75 mg PO BID@01/14/20 12/07/23 12/07/23 History losartan 25 mg tablet 25 mg PO DAILY@09 01/14/20 12/07/23 12/07/23 History propafenone 225 mg tablet 225 mg PO TID 01/14/20 12/07/23 12/07/23 History famotidine 20 mg tablet 20 mg PO DAILY 12/07/23 12/07/2312/07/24 History levothyroxine 50 mcg tablet 50 mcg PO DAILY 12/07/23 12/07/23 12/07/23 History rosuvastatin 10 mg tablet (Crestor) 10 mg PO DAILY@2100 12/07/23 12/07/23 12/06/23 History Allergies Allergy/AdvReac Type Severity Reaction Status Date / Time bacitracin Allergy ALGY-Rash Verified 12/07/23 15:09 [From Neosporin ([id number])] codeine Allergy ADR-Shakine Verified 12/07/23 15:09 ss neomycin Allergy ALGY-Rash Verified 12/07/23 15:09 [From Neosporin ([id number]-[id number])] petrolatum,white Allergy ALGY-Rash Verified 12/07/23 15:09 [From Petroleum Jelly] polymyxin B Allergy ALGY-Rash Verified 12/07/23 15:09 [From Neosporin ([id number])] Current Medications Generic Name Dose Route Start Last Admin Trade Name Freq PRN Reason Stop Dose Admin Nitroglycerin/Dextrose 50 mg in 250 mls @ 0 mls/hr 12/07/23 16:15 12/07/23 16:45 Nitroglycerin Drip IV 5 mcg/min .Q0M TORREY 1.5 mls/hr Administration Protocol Per Protocol PFSH Acute 2 PFSH: Medical History (Updated 12/07/23 @ 17:25 by Chandler Cadena MD) Elevated troponin BCC (basal cell carcinoma of skin) Carotid artery disease Hyperlipidemia Non-ST elevation [place] (NSTEMI) History of nonmelanoma skin cancer Fibromyalgia Afib Sinus bradycardia Diverticulitis HTN (hypertension) Surgical History History of partial colectomy History of colonoscopy History of hysterectomy History of appendectomy Family History Other CAD (coronary artery disease) Social History Smoking and tobacco/nicotine status: former use of tobacco/nicotine Alcohol intake: never Vitals/I&O/Wt Last Vital Signs Temp 98.8 F 12/07/23 13:20 Pulse 57 L 12/07/23 13:20 Resp 16 12/07/23 13:20 BP 155/77 12/07/23 13:20 Pulse Ox 93 12/07/23 13:20 O2 Del Method Room Air 12/07/23 13:20 Weight last 48 hrs Weight 275 lb Physical Exam 2 Narrative: GENERAL: In general she looks and feels well HEENT: Exam within normal limits. NECK: Supple without jugular vein distention. The carotid upstroke is normal without bruits. BACK: Exam normal. LUNGS: Clear. HEART: Regular rate and rhythm. ABDOMEN: Benign without organomegaly or tenderness. EXTREMITIES: No edema. NEUROLOGIC: Exam normal. SKIN: Unremarkable. Data 12/07/23 16:28 12/07/23 13:27 A&P Assessment and plan (1) HTN (hypertension): (2) Afib: (3) Hyperlipidemia: (4) Carotid artery disease: (5) Mild cognitive impairment with memory loss: (6) Elevated troponin: Plan This looks similar to the previous episode in 2020 however the troponins are not as high. Most likely cause of this is vasospasm. She had an uncomfortable sensation with angiography back then. I do not think she needs another angiogram at this point. Will plan a stress test tomorrow. Consult Attestations 2 Medical Necessity Statement: Admission to rule out myocardial infarction and Moderate Time for a total of 40 minutes, includes reviewing past or interval history, examining/interviewing patient, placing orders, counseling patient/family/other support, updating patient/family/other support, discussing plan of care with staff, communicating with other healthcare providers, documenting encounter and coordinating care Diagnoses HTN (hypertension) I10 Afib I48.91 Hyperlipidemia E78.5 Carotid artery disease I77.9 Mild cognitive impairment with memory loss G31.84 Elevated troponin R79.89
[2023-12-07] MEDS: heparin drip 25,000 UNIT/500 ML PREMIX 34.93 UNIT IV (17:23)
--- NOTE | 2023-12-07 18:35 | USCV_ITS ---
Alcides Sandra Age: 78 Gender: F : 1945 Exam Date: 12/07/2023 19:27 Ordering Phys: Vinay Dorman MD Technologist: MARICHUY [place] [facility] [place]: NSTEMI. No history of cardiac intervention per patient. BP: 199 / 98 HR: 63 Rhythm: Sinus Technical Quality: Adequate MEASUREMENTS (Male / Female) Normal Values 2D ECHO LV Diastolic Diameter PLAX 5.2 cm 4.2 - 5.9 / 3.9 - 5.3 cm LV Systolic Diameter PLAX 3.3 cm IVS Diastolic Thickness 1.0 cm 0.6 - 1.0 / 0.6 - 0.9 cm IVS Systolic Thickness 1.2 cm LVPW Diastolic Thickness 1.3 cm 0.6 - 1.0 / 0.6 - 0.9 cm LVPW Systolic Thickness 1.5 cm LVOT Diameter 1.7 cm LV Ejection Fraction 2D Teich 66.4 % LV Ejection Fraction MOD 2C 52.6 % LV Ejection Fraction 2C AL 51.7 % LA Diameter 4.0 cm LA Width 3.7 cm LA Height 5.5 cm RA Width 3.2 cm RA Height 5.0 cm Aorta at Sinotubular Diameter 2.6 cm IVC Diameter 2.3 cm M-MODE Aortic Annulus Diameter 2.8 cm LA Ao Ratio MM 1.4 MV E Point Septal Separation 0.5 cm DOPPLER AV Peak Velocity 137.0 cm/s LVOT Peak Velocity 93.0 cm/s AV Area Cont Eq vti 1.6 cm squared AV Area Cont Eq pk 1.6 cm squared MV Peak Velocity 134.0 cm/s MV Area PHT 3.1 cm squared Mitral E to A Ratio 1.6 MV E' Velocity 59.0 cm/s Mitral E to MV E' Ratio 12.0 Mitral E to LV E' Lateral Ratio 10.7 Mitral E to LV E' Septal Ratio 13.8 TR Peak Velocity 324.0 cm/s TR Peak Gradient 42.0 mmHg TV Peak E Velocity 39.0 cm/s Right Atrial Pressure 10.0 mmHg Pulmonary Artery Systolic Pressu 52.0 mmHg PV Peak Velocity 78.0 cm/s RV Acceleration Time 0.1 s RV Ejection Time 0.4 s RV AcT/ET 0.3 FINDINGS Left Ventricle Mildly increased left ventricular cavity size. Normal left ventricular wall thickness. Mildly decreased left ventricular systolic function. Global left ventricular hypokinesis. Grade II/IV diastolic dysfunction, moderately elevated filling pressures. Left ventricular ejection fraction is estimated at 45 %. Right Ventricle Normal right ventricular size and systolic function. Mild pulmonary hypertension, RVSP 52 mmHg. Right Atrium The right atrium is normal in size. Left Atrium Mildly increased left atrial size. Mitral Valve Structurally normal mitral valve. Mild mitral valve regurgitation. Aortic Valve Mild aortic valve calcification. No aortic valve stenosis. No aortic valve regurgitation. Tricuspid Valve Structurally normal tricuspid valve. Mild tricuspid valve regurgitation. Pulmonic Valve Pulmonic valve not well visualized. Pericardium Normal pericardium without effusion. Aorta Normal ascending aorta dimension. IVC Mildly dilated IVC. CONCLUSIONS Mildly increased left ventricular cavity size. Normal left ventricular wall thickness. Mildly decreased left ventricular systolic function. Global left ventricular hypokinesis. Grade II/IV diastolic dysfunction, moderately elevated filling pressures. Left ventricular ejection fraction is estimated at 45 %. Normal right ventricular size and systolic function. Mild pulmonary hypertension, RVSP 52 mmHg. Mildly increased left atrial size. Structurally normal mitral valve. Mild mitral valve regurgitation. Mildly dilated IVC. The previous echo was done 02/07/2021. The left ventricular function is reduced since then. Dr. Chandler Cadena MD (Electronically Signed) Final Date: 08 December 2023 07:59 S
--- NOTE | 2023-12-07 18:38 | PC.NURSE ---
received from er into room 107 via stretcher at 1825.oriented to room environment.instructed to notify staff for any chest pain,sob,or for any concerns at all.pt verb understanding of instructions
[2023-12-07] MEDS: HYDROcodone-acetaminophen 7.5-325 mg Tablet 1 TAB PO ×2 (18:59→23:54)
[2023-12-07] MEDS: sodium chloride 0.9% 1,000 ML 50 ML IV (19:03)
[2023-12-07] MEDS: pantoprazole 40 mg SDV IVP (19:04)
[2023-12-07 19:23] LABS: Iron 85 ug/dL (37-145); Percent Saturation 30.2 % (20-50); Total Iron Binding Capacity 281 mcg/dl; Unsaturated Iron Binding 196 ug/dL (112-347); Vitamin B12 271 pg/mL (232-1245)
[2023-12-07 20:19] LABS: Glucose Point of Care 157 mg/dL (70-110)
[2023-12-07 20:25] LABS: Troponin 5 6HR 336.5 ng/L (0-10); Troponin 5 6HR Delta 319.5 ng/L (0-12)
[2023-12-07] MEDS: buPROPion SR (12 HR) 150 mg Tablet PO (20:36)
[2023-12-07] MEDS: atorvastatin 40 mg Tablet 80 MG PO (20:36)
[2023-12-07] MEDS: propafenone 150 mg Tablet 225 MG PO (20:36)
[2023-12-07] MEDS: gabapentin 300 mg Capsule PO (20:36)
[2023-12-07] MEDS: lamoTRIgine 25 mg Tablet 75 MG PO (20:39)
[2023-12-08] VITALS (43 sets, daily range): BP systolic 101–173; BP diastolic 47–95; PULSE 58–82; RESP 10–26; TEMP 36.5–36.9; O2SAT 83–97
[2023-12-08 00:13] LABS: Partial Thromboplastin Time > 250.0 SECONDS (23.9-36.7)
--- NOTE | 2023-12-08 00:29 | PC.NURSE ---
Informed Dr Mathias of elevated PTT for patient on heparin drip. Received instruction to stop heparin in 2 hours and adjust at that time.
[2023-12-08 02:02] LABS: Add Urine Microscopic? YES; Bilirubin Urine Neg (Negative); Blood Urine 2+ (Negative); Glucose Urine UA Norm (Normal); Ketones Urine 1+ (Negative); Leukocyte Esterase Urine Negative (Negative); Nitrate Urine Negative (Negative); Protein Urine Neg (Negative); Specific Gravity, Urine 1.025 (1.005-1.030); Transitional Epi Cells Urine 0-4 /hpf; Urine Appearance SL Hazy (CLEAR); Urine Color Yellow (Yellow); Urobilinogen Urine Neg (Negative); WBC Urine 0-4 /hpf (0-5); pH Urine 5 (5-7)
[2023-12-08 02:03] LABS: Add Urine Culture? No; Bacteria Urine 1+ /hpf; Mucus Urine 1+ /hpf
[2023-12-08] MEDS: HYDROcodone-acetaminophen 7.5-325 mg Tablet 1 TAB PO ×3 (05:50→18:16)
--- NOTE | 2023-12-08 05:57 | PC.NURSE ---
Patient injected for stress test this morning.
[2023-12-08 06:42] LABS: Basophils % 0.2 %; Eosinophils # 0.1 10^3/uL (0.0-0.8); Eosinophils % 0.8 %; Hematocrit 38.8 % (36-47); Lymphocytes % 33.6 %; Mean Corpuscular HGB Conc 31.7 g/dL (30-55); Mean Corpuscular Hemoglobin 31.2 pg (27-33); Mean Corpuscular Volume 98.5 fl (85-98); Mean Platelet Volume 9.5 fL (7.4-10.4); Monocytes # 0.8 10^3/uL (0.2-0.9); Monocytes % 8.7 %; Neutrophils # 5.08 10^3/uL (1.8-7.7); Neutrophils % 56.4 %; Nucleated Red Blood Cells % 0 %; Platelet Count 167 10^3/cmm (157-399); Red Blood Count 3.94 10^6/uL (3.85-5.65); Red Cell Distribution Width 12.7 % (12.1-15.1); White Blood Count 9.01 10^3/uL (3.29-11.43)
[2023-12-08 06:58] LABS: Estmated Average Glucose 114; Hemoglobin A1C 5.6 % (4.0-6.0)
[2023-12-08 06:59] LABS: Alanine Aminotransferase 11 U/L (0-33); Albumin Level 3.4 g/dL (3.5-5.2); Alkaline Phosphatase 54 U/L (35-105); Anion Gap 12.9 (5-19); Aspartate Amino Transferase 23 U/L (0-32); Blood Urea Nitrogen 14 mg/dL (8-23); Calcium 8.4 mg/dL (8.5-10.5); Carbon Dioxide 26 mmol/L (22-29); Chloride 105 mmol/L (98-107); Creatinine Clr Calc Pharmacy 71.7418; Globulin 2.9 g/dL (1.3-4.6); Glucose 89 mg/dL (65-115); Magnesium 2.2 mg/dL (1.7-2.3); Osmolality Calculated 290 mOsm/kg (285-295); Phosphorus 3.3 mg/dL (2.5-4.5); Potassium 3.9 mmol/L (3.5-5.1); Sodium 140 mmol/L (136-145); Total Bilirubin 0.3 mg/dL (0.15-1.2); Total Protein 6.3 g/dL (6.6-8.7)
[2023-12-08 07:03] LABS: Chol HDL Ratio 2.39 mg/dL (0.0-4.40); Cholesterol 91 mg/dL (0-200); HDL Cholesterol 38 mg/dL (60-100); LDL Cholesterol Calculated 34 mg/dL (50-129); LDL HDL Ratio 0.89 RATIO (0.00-3.22); Triglycerides 97 mg/dL (0-150)
[2023-12-08 07:11] LABS: Partial Thromboplastin Time 211.8 SECONDS (23.9-36.7)
[2023-12-08 07:41] LABS: Folate Level 9.2 ng/mL (4.8-37.3)
--- NOTE | 2023-12-08 08:00 | NMCV_ITS ---
NM vamsi perf SPECT r/s* [id number] Sandra Mcgrath Age: 78 Gender: F : 1945 Exam Date: 12/08/2023 08:00 Ordering Phys: Chandler Cadena MD ([email or web address]) Technologist: CHRISTIN Hicks Exam Location: [facility] Indications: CHEST PAIN STRESS TEST Please see separate stress test report in [facility] for full findings IMAGE PROTOCOL Rest/Stress 1 Lexiscan Day Radiopharmaceutical Dose (mCi) Administration Site Administered by Rest: Tc-99m 10.6 IV CHRISTIN Muñoz Sestamibi Stress:Tc-99m 33.0 IV CHRISTIN Muñoz Sestamibi Rest: 08-Dec-2023 60 Discovery 630 Stress: 08-Dec-2023 30 Discovery 630 0.4mg Lexiscan. Supine position only as patient was unable to lay prone. SPECT RESULTS Technical Quality: Good Raw Data Analysis: Breast attenuation Image Corrections: No attenuation or motion correction applied Summed Stress Score: 11 Summed Rest Score: 7 Summed Difference Score: 4 PERFUSION FINDINGS There is large in size, partially reversible perfusion defect seen in inferolateral wall. 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 FUNCTIONAL RESULTS (calculated via Gated SPECT) Stress Image LV EF (%): 58 Stress EDV (mL):142 TID: 1.01 Stress ESV (mL):59 FUNCTIONAL FINDINGS: There is normal left ventricular systolic function. IMPRESSIONS 1. Abnormal myocardial perfusion imaging with large area of prior infarct with significant axel-infarct ischemia seen in left circumflex artery territory. 2. LV systolic function is normal. Ronak Eckert MD (Electronically Signed) Final Date: 08 December 2023 11:14 S
--- NOTE | 2023-12-08 08:06 | ECG_ITS ---
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 Interpretive Statements NAME OF STUDY: LEXISCAN SESTAMIBI STRESS TEST INDICATION: [SOB ] Procedure: At the baseline, the blood pressure was 105/58 mmHg with a heart rate of 60 bpm. The electrocardiogram showed normal sinus rhythm, normal axis with normal ST and T's. The Lexiscan was infused over a period of 20 seconds. A total of 0.4 mg of Lexiscan was infused. The stress phase was continued for a total of 5 minutes. Heart rate was at the end of stress phase was 67 bpm and a blood pressure of 100/59 mmHg. The EKG at the peak infusion revealed normal sinus rhythm with no significant ST-T wave changes. Sestamibi was injected 20 seconds after the Lexiscan infusion. Blood pressure at the end of recovery phase was 101/61 mmHg with a heart rate of 64 bpm. Conclusion: 1. Normal EKG response to Lexiscan infusion 2. No Lexiscan induced chest pain or cardiac arrhythmia. 3. Normal blood pressure and heart rate response. 4. Sestamibi/sestamibi perfusion scan pending; see separate report. Electronically Signed On 12-24-2023 11:43:57 GLOBAL ENGINEERING MANAGER by Ronak Eckert M.D. [id number]
[2023-12-08] MEDS: regadenoson 0.4 Mg/5 ml Syringe IVP (08:32)
[2023-12-08] MEDS: lamoTRIgine 25 mg Tablet 75 MG PO ×2 (09:27→20:25)
[2023-12-08] MEDS: losartan 50 mg Tablet 25 MG PO (09:30)
[2023-12-08] MEDS: propafenone 150 mg Tablet 225 MG PO ×3 (09:31→20:25)
[2023-12-08] MEDS: gabapentin 300 mg Capsule PO ×3 (09:31→20:25)
[2023-12-08] MEDS: levothyroxine 50 mcg Tablet PO (09:31)
[2023-12-08 10:09] LABS: Partial Thromboplastin Time 68.2 SECONDS (23.9-36.7)
[2023-12-08] MEDS: isosorbide mononitrate ER 30 mg Tablet PO (11:41)
--- NOTE | 2023-12-08 12:08 | P.PN_ITS ---
Subjective 2 Subjective: No acute events overnight. Patient has remained chest pain-free. Seen with multiple family member at bedside. Seen post cardiac stress test. Currently on heparin drip and nitro drip at 20. Vitals/I&O/Wt Last Vital Signs Temp 98.5 F 12/08/23 05:30 Pulse 64 12/08/23 09:20 Resp 19 H 12/08/23 07:00 BP 145/65 12/08/23 09:30 Pulse Ox 93 12/08/23 07:00 O2 Del Method Room Air 12/07/23 19:20 12/07/23 12/08/23 12/08/23 22:59 06:59 14:59 Intake Total 252.675 / 252.675 248.003 / 500.678 484.65 / 484.65 Balance 252.675 / 252.675 248.003 / 500.678 484.65 / 484.65 Weight last 48 hrs Weight 124.693 kg Weight 124.511 kg Weight 124.738 kg Physical Exam 2 Narrative: General: No acute distress, AO x3 HEENT: PERRLA, pupils bilaterally equal and reactive Chest: Normal vesicular breath sounds, no added sounds, equal good air entry bilaterally CVS: S1-S2 regular, no murmurs, no tachycardia, no gallops, no rubs Abdomen: Soft, nontender, no organomegaly, bowel sounds present Neuro: No focal deficits, no facial deformity, AO x3, power 5/5 in all limbs Data 12/08/23 06:12 12/08/23 06:12 A&P Assessment and plan (1) Non-ST elevation PR (NSTEMI): Positive delta troponin in the ER. Continue with troponin cycle. Cardiology has been consulted. Last cardiac angiogram in 2020 showed normal coronaries. Echocardiogram shows mildly increased LV cavity size, decreased LV function with grade 2 diastolic dysfunction, EF of around 45% with mild pulmonary hypertension with RVSP of 52 mmHg, mild MR with dilated IVC. Post stress test. Awaiting results. Continue with heparin drip. Aspirin 81 mg daily, atorvastatin nightly. Propafenone to 25 mg 3 times a day at home dose. Appreciate A1c, lipid panel. We will await cardiac stress test results before further care plan. (2) Afib: Currently rate controlled with bradycardia. Switched Pradaxa to heparin drip for now. Continue with propafenone at home dose. (3) Sinus bradycardia: (4) Carotid artery disease: (5) Hyperlipidemia: (6) HTN (hypertension): Goal blood pressure less than 140/90 mmHg. Continue with home dose of losartan for now. Add Imdur 30 mg oral daily. Titrate and wean down nitro drip accordingly. Plan Cardiac diet postcardiac stress test. Heparin drip will suffice as DVT prophylaxis Protonix for PUD prophylaxis Full code Attestations 2 Medical Necessity Statement*: Requires further hospitalization for management of non-ST elevation PR in a patient with history of baseline, hypertensive urgency Diagnoses Non-ST elevation PR (NSTEMI) I21.4 Afib I48.91 Sinus bradycardia R00.1 Carotid artery disease I77.9 Hyperlipidemia E78.5 HTN (hypertension) I10
[2023-12-08 14:58] LABS: Partial Thromboplastin Time 57.1 SECONDS (23.9-36.7)
--- NOTE | 2023-12-08 15:20 | P.PN_ITS ---
Subjective 2 Subjective: Sandra has had an uneventful night. Her chest pain went away shortly after she arrived on the floor yesterday. Her echo revealed mild global hypokinesis of the left ventricle with an ejection fraction of about 45%. The stress test was read as abnormal with a large area of prior infarct in the distribution of the circumflex with significant axel-infarct ischemia but interestingly the LV systolic function was read as normal. Her troponins were 17, 110 and 336. This troponin elevation is significantly less than what she experienced the last time she was here with a similar presentation. She currently is free of pain and anxious to go home. Vitals/I&O/Wt Last Vital Signs Temp 98.5 F 12/08/23 05:30 Pulse 64 12/08/23 09:20 Resp 19 H 12/08/23 07:00 BP 145/65 12/08/23 09:30 Pulse Ox 93 12/08/23 07:00 O2 Del Method Room Air 12/07/23 19:20 12/08/23 12/08/23 12/08/23 06:59 14:59 22:59 Intake Total 248.003 / 500.678 484.65 / 484.65 Balance 248.003 / 500.678 484.65 / 484.65 Weight last 48 hrs Weight 274 lb 14.4 oz Weight 274 lb 8 oz Weight 275 lb Physical Exam 2 Narrative: GENERAL: In general she looks and feels well HEENT: Exam within normal limits. NECK: Supple without jugular vein distention. The carotid upstroke is normal without bruits. BACK: Exam normal. LUNGS: Clear. HEART: Regular rate and rhythm. ABDOMEN: Benign without organomegaly or tenderness. EXTREMITIES: No edema. NEUROLOGIC: Exam normal. SKIN: Unremarkable. Data 12/08/23 06:12 12/08/23 06:12 A&P Assessment and plan (1) HTN (hypertension): (2) Sinus bradycardia: (3) Afib: (4) Elevated troponin: (5) Hyperlipidemia: (6) Carotid artery disease: Plan I spent quite a bit of time explaining all this to her. Her son and 2 daughters were also in the room and involved in the conversation. There are multiple parts of this which are incongruent with us. The last time she was here her troponins went up much higher than they did last time and her coronary arteries were normal by angiography. She did not have a stress test last time. Her LV function by echo last time was normal but this time it is slightly diminished. There is also an abnormality on the stress test now which is a new finding however as mentioned she did not have a stress test before. All of these conflicting pieces of information did not fit quite well. I tried to explain all of the testing to her into her family. I presented it to her as to choices. 1 would be to consider that this presentation was similar to the last 1 when she had normal coronary arteries but an elevation in her troponin. Admittedly, both of these were associated with stressful situations. The last 1 was a tooth pulled and this 1 was difficulty with a bowel movement. The only confounding factors now are the decrease in the left ventricular ejection fraction by echo and also the abnormal stress test. I do not know if those are playing a significant role. I gave her 2 choices either treat medically versus another angiogram. She is fearful of another angiogram because she had a bad experience with the 1 2-1/2 years ago. I think she will make the decision to treat medically for now and reassess as time goes along. She would like to go home today. I would send her home on the medicines she was admitted on which would include Pradaxa, Crestor, Pradaxa, losartan and propafenone as scheduled. I would consider adding a long-acting nitrate or a dihydropyridine calcium channel cassidy in case this is spasm. I told her if she changes her mind or her family talks her into an angiogram would be happy to do that. She can follow-up with the nurse practitioner in our office in a week to 10 days. I have discontinued the heparin and nitro glycerin. Attestations 2 Medical Necessity Statement*: Should be able to discharge home and High Time for a total of 60 minutes, includes reviewing past or interval history, examining/interviewing patient, placing orders, counseling patient/family/other support, updating patient/family/other support, discussing plan of care with staff, communicating with other healthcare providers, documenting encounter and coordinating care Diagnoses HTN (hypertension) I10 Sinus bradycardia R00.1 Afib I48.91 Elevated troponin R79.89 Hyperlipidemia E78.5 Carotid artery disease I77.9
--- NOTE | 2023-12-08 15:52 | ECG_ITS ---
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 Measurements Intervals [place] Rate: 73 P: 58 TN: 183 QRS: 35 QRSD: 101 T: 62 QT: 412 QTc: 454 Interpretive Statements SINUS RHYTHM MARKED ST ELEVATION, CONSIDER INFERIOR INJURY [MARKED ST ELEVATION W/O NORMALLY INFLECTED T-WAVE IN II/aVF] ACUTE IA INTERPRETATION BASED ON A DEFAULT AGE OF 40 YEARS Compared to ECG 12/07/2023 15:23:21 Myocardial infarct finding now present Sinus bradycardia no longer present ST (T wave) deviation still present Electronically Signed On 12-08-2023 16:32:52 PERSONAL INJURY LEGAL ASSISTANT by Chandler Cadena M.D. [id number]
[2023-12-08] MEDS: nitroglycerin 1 gm/inch oint Pkt 1 INCH TOPICAL (16:15)
[2023-12-08] MEDS: morphine 4 mg/mL SDV 1 mL 2 MG IVP ×2 (16:23→16:37)
--- NOTE | 2023-12-08 16:28 | ECG_ITS ---
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 Measurements Intervals [place] Rate: 79 P: 53 HI: 168 QRS: 26 QRSD: 101 T: 59 QT: 421 QTc: 483 Interpretive Statements SINUS RHYTHM WITH FREQUENT VENTRICULAR PREMATURE COMPLEXES LOW QRS VOLTAGE [QRS DEFLECTION < 0.5/1.0 mV IN LIMB/CHEST LEADS] ST ELEVATION, CONSIDER INFERIOR INJURY [MARKED ST ELEVATION W/O NORMALLY INFLECTED T-WAVE IN II/aVF] ACUTE TN Compared to ECG 12/08/2023 16:04:15 Ventricular premature complex(es) now present Low QRS voltage now present ST (T wave) deviation still present Myocardial infarct finding still present Electronically Signed On 12-09-2023 11:39:43 GEAR HOBBER SET UP OPERATOR by Ronak Eckert M.D. [id number]
[2023-12-08] MEDS: aspirin 325 mg Tablet PO (16:45)
[2023-12-08] MEDS: diphenhydrAMINE 50 mg Capsule PO (16:46)
--- NOTE | 2023-12-08 16:46 | XACV_ITS ---
Exam Room: 2 Ht: 168 cm Wt: 124 kg BSA: 2.47 m2 Gender: Female : 1945 Any Known Allergies: Other Exam Priority: Routine Procedure(s): Procedure Description: Diagnostic procedure Procedure Description: Coronary Angiography Surinder HOFFMANN; Diagnostic Cath Status: Emergency Diagnostic Findings * Patient with severe chest pain and ST segment elevation in leads II, III and aVF. Previous evidence of similar findings with elevated troponin and normal coronary arteries. Angiogram done emergently because of ST elevation and chest pain. Incidentally there is a current stress test with was interpreted as a large amount of ischemia in the distribution of the circumflex.. * Coronary angiography reveals right coronary artery dominance. The left main is normal. The LAD and circumflex are normal. The right coronary artery is normal. Conclusions 1. Normal coronary arteries. Suspect coronary spasm. Recommendations * Antispasmodics. Interventional RX Recommendation: medical therapy and/or counseling Diagnostic RX Recommendation: medical therapy and/or counseling Anticoagulation: Heparin Pressures Phase:Rest AO : 181 / 81 ( 121 ) @ 5:09:00 PM 172 / 77 ( 119 ) @ 5:13:00 PM Clinical Evaluation EBL: 5mL-10mL Procedural Details Pre-Procedure Time Out. Identified patient by full name and date of as verbalized by the patient/guarantor. Does the consent match the physician's order: N/A Emergent; Informed Consent not obtained due to time critical life threat. Accurate & Complete Informed Consent: N/A Emergent; Informed Consent not obtained due to time critical life threat. Inpatient/Outpatient History & Physical on Chart: N/A Emergent; Informed Consent not obtained due to time critical life threat. If H&P is completed, is and addenduem needed: N/A Emergent; Informed Consent not obtained due to time critical life threat; If yes, is the addendum complete: N/A Emergent; Informed Consent not obtained due to time critical life threat. Visualize and Verify Site with Patient/Guarantor: N/A. Relevant Radiology Images available: N/A Emergent. The risks, benefits, and alternatives of sedation and/or procedure were discussed by physician. The patient agrees to continue. Procedure started. Wool Washer Indications: ACS <= 24 hours. Chest Pain Symptom Assessment: Typical Angina Symptoms. Correct patient, site and procedure confirmed by cath team. Current diagnosis: STEMI. PERRLA. Strong, equal hand machine rigger bilaterally. Lungs clear x 5 lobes. IV Site on Arrival: 20 gauge in the left anticubital. IV Site on Arrival: 20 gauge in the right forearm. On arrival to crime laboratory analyst patient has nitro gtt running at 20mcg/min. Heparin gtt running and stopped on arrival to crime laboratory analyst. IV Fluids: 0.9% NaCl at 75ml/hr. 800 mL infused prior to crime laboratory analyst. Pre Procedural Pulses: bilateral radial was 3+. Oxygen started at 2liters/min via nasal canula. right radial was prepped with chloroprep then draped in the usual sterile fashion. right groin was prepped with chloroprep then draped in the usual sterile fashion. Baseline sample Acquired. HR: 69 BPM. Physician notified. Physician arrived. Admit Source: In Patient. Physician scrubbed in. Immediate Pre-Procedure Time Out. Correct Patient: Yes; Correct Procedure: Yes; Correct Site: Yes; Correct Patient Position: Yes; Correct Supplies: Yes; Dried Flammable Prep: Yes; Blood Products Available: No;. Baseline sample Acquired. HR: 71 BPM. Lidocaine 1% infiltrated to the right radial. Oxygen started at 100% NRB for decreased SPO2 sats. Arterial access obtained. A 6 khmer TIG catheter in over wire. Multiple views taken of left coronary artery. Catheter redirected to the RCA. Multiple views taken of right coronary artery. Catheter removed over the exchange wire. Physician scrubbed out. Post-op diagnosis: Chest pain with ST elevation, abnormal EKG. Complications: None. PERRLA. Strong, equal hand machine rigger bilaterally. No VTE prophylaxis required. Medication's Wasted: Lidocaine 1% = 2 mL. Medication's Wasted: Heparin = 1000 units. Total IV fluids: 26 mL. Estimated blood loss: 5mL-10mL. Responsiveness - Normal response to verbal stimuli; alert and oriented, PERRLA. Airway - Unaffected, no intervention required; spontaneous ventilation. Circulation: W/N/L, pulses unchanged. Nausea/Vomiting: No. Nitro gtt stopped by Christie Wells RN as ordered by Dr. Cadena. Post Procedure: Pulses reassessed and unchanged. A TR Band was successful obtaining hemostatsis at the Right Radial artery insertion site. Procedure completed. Patient transferred by bed to 1st floor. Vital chart was stopped. Access Site Site: Right Radial artery Sheath Size: 6 Fr Hemostasis Method: TR Band Hemostasis Success: Successful Procedure Medications Start: 5:00 PM Stop: 5:00 PM Medication: Versed Amount: 1 mg Route: I.V. Start: 5:00 PM Stop: 5:00 PM Medication: Fentanyl Amount: 50 mcg Route: I.V. Start: 5:07 PM Stop: 5:07 PM Medication: Nitrogylcerin Amount: 200 mcg Route: I.A. Start: 5:08 PM Stop: 5:08 PM Medication: Versed Amount: 1 mg Route: I.V. Start: 5:13 PM Stop: 5:13 PM Medication: Fentanyl Amount: 25 mcg Route: I.V. Start: 5:14 PM Stop: 5:14 PM Medication: Fentanyl Amount: 25 mcg Route: I.V. I, the attending physician, have reviewed and verified all procedure medications. Yes, all medications given per verbal order Report Signatures Finalized by Dr. Chandler Cadena MD on 12/08/2023 05:32 PM
--- NOTE | 2023-12-08 16:54 | PM.CCNAC ---
Critical Care Event Note Patient was seen earlier today morning postcardiac stress test. At that time she was on a nitro and heparin drip without any chest pains. Stress test was reported to be read abnormal with axel-infarct ischemia in LCx territory. As per documentation patient had a conversation with Dr. Cadena from cardiology and she opted for medical management and was being taken off the heparin and nitro drip. After being on nitro drip for around 15 minutes she started having chest pain again after which I had asked for the patient to be placed back on heparin and nitro drip and further repeat EKG. Patient was more agreeable for cardiac angiogram now. Repeat EKG now showed ST elevation WI in 2 3 aVF. STEMI alert was called by cardiology team. On examination during STEMI alert patient continued to have chest pain had Nitropaste on as per cardiology recommendation. She was also on nitro and heparin drip. She was given 4 mg of IV morphine. Plan is for her to go to an emergent cardiac catheterization. Patient had already received full dose of aspirin yesterday. She received 81 mg of aspirin earlier today morning along with propafenone which she takes for atrial fibrillation. Repeat EKG during STEMI alert showed patient to have multiple VPCs with ST elevation in 2 3 aVF. Care were discussed in detail with patient and multiple family members at bedside. The high probability of a clinically significant, sudden or life threatening deterioration of the patient's [cardiac] system(s) required my full and direct attention, intervention and personal management. The critical care time is as shown. This time is in addition to time spent performing any reported procedures but includes the following: [x] Data and vital sign review and interpretation [x] Patient assessment, examination and intervention [x] Documentation [x] Medication orders and management Critical Care Time Code activated: Yes Critical Care Time (min): 70 Coding Level of Care Code Critical Care Time Spent (min) 70
--- NOTE | 2023-12-08 17:45 | PC.NURSE ---
pt had stress test today.results discussed by dr lay with pt and family.pt declined angiogram and stated she wanted to go home.heparin drip and nitro drip dc'd as ordered.within 5 minutes, pt c/o chest pain...became diaphoretic...and writhing in bed.ekg obtained.dr lay notified.ntg paste applied as ordered and heparin drip resumed as ordered.he came to examine pt and ordered angiogram..to which pt agreed.stemi alert called.pt to director labor standards.returned at 1730.no intervention performed.tr band on right wrist.no hematoma noted.
[2023-12-08] MEDS: pantoprazole 40 mg SDV IVP (18:19)
--- NOTE | 2023-12-08 19:14 | PC.NURSE ---
Patient resting in with family at bedside. Patient is s/p [facility] with right radial access. TR band remains in place. No s/s of bleeing or hematoma formation observed. Instructed patient on site care and restrictions. Patient verbalized complete understanding.
[2023-12-08] MEDS: sodium chloride 0.9% 1,000 ML 100 ML IV (20:24)
[2023-12-08] MEDS: buPROPion SR (12 HR) 150 mg Tablet PO (20:25)
[2023-12-08] MEDS: atorvastatin 40 mg Tablet 80 MG PO (20:25)
[2023-12-08] MEDS: diclofenac 1% Topical Gel 100 gm 1 APPLIC TOPICAL (20:30)
--- NOTE | 2023-12-08 21:05 | PC.NURSE ---
Initiated air removal from TR band at 1910 per protocol. Air removed every 15-20min until all air removed at this time. Band removed. No s/s of bleeding or hematoma formation noted to site. Covered with 2x2 and coban. Reinforced site care and restrictions. Patient verbalized understanding. Patient denies chest pain at this time. Daughter remains at bedside. Will continue to monitor.
[2023-12-09] MEDS: HYDROcodone-acetaminophen 7.5-325 mg Tablet 1 TAB PO ×2 (00:03→05:30)
--- NOTE | 2023-12-09 01:02 | PC.NURSE ---
Dressing to right wrist remains c,d,i with no s/s of bleeding or hematoma formation observed. Will continue to monitor.
[2023-12-09 04:00] VITALS: BP 104/46; PULSE 60; RESP 13; TEMP 36.6; O2SAT 90
[2023-12-09] MEDS: sodium chloride 0.9% 1,000 ML 100 ML IV (05:30)
[2023-12-09 05:47] VITALS: PULSE 63
[2023-12-09 07:37] VITALS: BP 107/53; PULSE 61; RESP 27; TEMP 36.8; O2SAT 93
--- NOTE | 2023-12-09 08:12 | P.PN_ITS ---
Subjective 2 Subjective: Late yesterday afternoon, after a very lengthy discussion with the patient and her family which is delineated in yesterday's note, she decided upon medical therapy which I thought was reasonable as I was not concerned about a significant coronary lesion despite the results of the stress test. Almost immediately after having the heparin and nitroglycerin stopped, she began to have severe chest pain and a repeat EKG revealed mild ST segment elevation in the inferior leads. I was then basically forced to take her to the catheterization laboratory urgently. As expected, her coronary arteries remain normal. This is stress or anxiety induced coronary spasm. This morning she feels much better. Her daughter is worried that some of her other medications are causing the episodes of anxiety and spasm. Vitals/I&O/Wt Last Vital Signs Temp 98.3 F 12/09/23 07:37 Pulse 61 12/09/23 07:37 Resp 27 H 12/09/23 07:37 BP 107/53 12/09/23 07:37 Pulse Ox 93 12/09/23 07:37 O2 Del Method Room Air 12/08/23 12:00 12/08/23 12/09/23 12/09/23 22:59 06:59 14:59 Intake Total 1604.672 / 2449.322 910 / 3359.322 Balance 1604.672 / 2449.322 910 / 3359.322 Weight last 48 hrs Weight 287 lb 3.2 oz Weight 274 lb 14.4 oz Weight 274 lb 8 oz Weight 275 lb Physical Exam 2 Narrative: GENERAL: In general she is comfortable this morning HEENT: Exam within normal limits. NECK: Supple without jugular vein distention. The carotid upstroke is normal without bruits. BACK: Exam normal. LUNGS: Clear. HEART: Regular rate and rhythm. ABDOMEN: Benign without organomegaly or tenderness. EXTREMITIES: No edema. The right radial artery entry site is flat, dry without hematoma, bleeding or other vascular anomaly. 2+ pulse. NEUROLOGIC: Exam normal. SKIN: Unremarkable. Data 12/08/23 06:12 12/08/23 06:12 A&P Assessment and plan (1) HTN (hypertension): (2) Sinus bradycardia: (3) Afib: (4) Hyperlipidemia: (5) Carotid artery disease: (6) Elevated troponin: (7) Coronary vasospasm: Plan I had another lengthy discussion with the patient and her family this morning. She should go home on isosorbide 30 mg daily and amlodipine 2.5 mg daily. Her other medications such as the statin, losartan, propafenone should be continued. She should also have available sublingual nitroglycerin to be used as needed for these episodes of chest pain. She may go home today. She should follow-up in a week or 10 days with the nurse practitioner in our office for right radial artery check and chemistry panel. In about 3 months she should follow-up with Dr. 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 Attestations 2 Medical Necessity Statement*: Able to be discharged today and High Time for a total of 50 minutes, includes reviewing past or interval history, examining/interviewing patient, placing orders, counseling patient/family/other support, updating patient/family/other support, discussing plan of care with staff, communicating with other healthcare providers, documenting encounter and coordinating care Diagnoses HTN (hypertension) I10 Sinus bradycardia R00.1 Afib I48.91 Hyperlipidemia E78.5 Carotid artery disease I77.9 Elevated troponin R79.89 Coronary vasospasm I20.1
--- NOTE | 2023-12-09 08:25 | P.DS_ITS ---
Discharge Providers Date of Admission: 12/07/23 17:47 Date of Discharge: December 09, 2023 Attending Provider at Admission: Luisana Tucker MD Attending Provider at Discharge: Vinay Dorman MD Consults: Cardiology: Dr. Cadena Primary Care Provider: CRISTIAN Willson Diagnoses at Discharge Discharge Diagnosis (1) HTN (hypertension): Status: Acute (2) Sinus bradycardia: Status: Acute (3) Afib: Status: Acute (4) Hyperlipidemia: Status: Acute (5) Carotid artery disease: Status: Acute (6) Elevated troponin: Status: Acute (7) Coronary vasospasm: Status: Acute Reason for Visit Reason for Visit: Chest Pain Hospital Course Hospital Course Sandra Mcgrath is a 78 year old female with past medical history of atrial fibrillation on chronic anticoagulation with Pradaxa, hyperlipidemia, CAD, hypothyroidism, hypertension who was last admitted to the hospital with chest pain in 2020 when she had a cardiac angiogram which was reported to be normal presented to the ER today after having chest pain while she was having a bowel movement at around noon today associated with mild difficulty in breathing radiating to back and neck. Chest pain subsided after she was started on nitro drip. Patient denies of having any similar episodes since last episode both at rest and on exertion. Does not check her blood pressures at home though states he takes medications regularly. Patient was admitted to the hospital further evaluation and management for non- ST elevation PR. Cardiology was consulted and she was started on a heparin and nitro drip. Because of concerns for abnormal angiogram within the last 3 years patient was advised to undergo Lexiscan stress test which was concerning for axel- ischemic infarct in LCx territory. Echocardiogram was done which showed patient's EF down to 45% with mildly decreased LV systolic function, global LV hypokinesia with grade 2 diastolic dysfunction with a mild pulmonary hype rtension with RVSP of 52 mmHg. Care plan of possible cardiac angiogram versus medical therapy were discussed in detail between cardiology team and patient and family who opted for medical therapy. While patient was in process of being discharged she started having acute chest pain again for which she was placed back on nitro and heparin drip. I EKG was done which was concerning for mild ST elevation in inferior leads for which STEMI alert was called and she underwent cardiac angiogram on 12/08 which was concerning for coronary vasospasm. She has been discharged in hemodynamically stable condition, and chest pain-free condition after clearance from cardiology team. Going forward she is supposed to take Imdur 30 mg daily and amlodipine to 5 mg daily along with all her chronic medications. She is also discharged on Lasix 20 mg daily as needed for body weight of 5 kg more than today or swelling of her legs. She is advised to restrict fluid intake to less than 1500 cc. Physical Exam Narrative: General: No acute distress, AO x3 HEENT: PERRLA, pupils bilaterally equal and reactive Chest: Normal vesicular breath sounds, no added sounds, equal good air entry bilaterally CVS: S1-S2 irregularly irregular, soft pansystolic murmur at third intercostal space left-sided para-sternal, no murmurs, no tachycardia, no gallops, no rubs Abdomen: Soft, nontender, no organomegaly, bowel sounds present Neuro: No focal deficits, no facial deformity, AO x3, power 5/5 in all limbs Discharge Data Studies Completed and Pending Completed Studies During Hospitalization Category Date Time Status [facility] [employer] request for service Routine Exams 12/08/23 16:46 Completed Cardiac Stress Test MIBI [Sestamibi Stress Test Request Exams 12/08/23 08:06 Draft ] Routine XR chest 1V portable [id number] Stat Exams 12/07/23 13:18 Completed NM vamsi perf SPECT r/s* [id number] Routine Nuc Med 12/08/23 08:00 Completed CV. echo complete* [id number] Routine Ultrasound 12/07/23 18:35 Completed Laboratory Results WBC 9.01 10^3/uL (3.29-11.43) 12/08/23 06:12 RBC 3.94 10^6/uL (3.85-5.65) 12/08/23 06:12 Hgb 12.30 g/dL (11.27-16.99) 12/08/23 06:12 Hct 38.8 % (36-47) 12/08/23 06:12 MCV 98.5 fl (85-98) H 12/08/23 06:12 MCH 31.2 pg (27-33) 12/08/23 06:12 MCHC 31.7 g/dL (30-55) 12/08/23 06:12 RDW 12.7 % (12.1-15.1) 12/08/23 06:12 Plt Count 167 10^3/cmm (157-399) 12/08/23 06:12 MPV 9.5 fL (7.4-10.4) 12/08/23 06:12 Neut % (Auto) 56.4 % 12/08/23 06:12 Lymph % (Auto) 33.6 % 12/08/23 06:12 Merrick % (Auto) 8.7 % 12/08/23 06:12 Eos % (Auto) 0.8 % 12/08/23 06:12 Baso % (Auto) 0.2 % 12/08/23 06:12 Neut # (Auto) 5.08 10^3/uL (1.8-7.7) 12/08/23 06:12 Lymph # (Auto) 3.0 10^3/uL (0.8-4.8) 12/08/23 06:12 Merrick # (Auto) 0.8 10^3/uL (0.2-0.9) 12/08/23 06:12 Eos # (Auto) 0.1 10^3/uL (0.0-0.8) 12/08/23 06:12 Baso # (Auto) 0.0 10^3/uL (0.0-0.1) 12/08/23 06:12 Nucleated RBC % (auto) 0 % 12/08/23 06:12 Nucleated RBCs # 0.0 /100WBC 12/08/23 06:12 APTT 57.1 SECONDS (23.9-36.7) H 12/08/23 14:32 Sodium 140 mmol/L (136-145) 12/08/23 06:12 Potassium 3.9 mmol/L (3.5-5.1) 12/08/23 06:12 Chloride 105 mmol/L (98-107) 12/08/23 06:12 Carbon Dioxide 26 mmol/L (22-29) 12/08/23 06:12 Anion Gap 12.9 (5-19) 12/08/23 06:12 BUN 14 mg/dL (8-23) 12/08/23 06:12 Creatinine 0.9 mg/dL (0.5-0.9) 12/08/23 06:12 GFR Calculation Not Reportable 12/08/23 06:12 Glucose 89 mg/dL (65-115) 12/08/23 06:12 POC Glucose 157 mg/dL (70-110) H 12/07/23 20:12 Estimat Average Glucose 114 12/08/23 06:12 Hemoglobin A1c 5.6 % (4.0-6.0) 12/08/23 06:12 Calculated Osmolality 290 mOsm/kg (285-295) 12/08/23 06:12 Calcium 8.4 mg/dL (8.5-10.5) L 12/08/23 06:12 Phosphorus 3.3 mg/dL (2.5-4.5) 12/08/23 06:12 Magnesium 2.2 mg/dL (1.7-2.3) 12/08/23 06:12 Iron 85 ug/dL (37-145) 12/07/23 15:32 TIBC 281 mcg/dl 12/07/23 15:32 % Saturation 30.2 % (20-50) 12/07/23 15:32 Unsat Iron Binding 196 ug/dL (112-347) 12/07/23 15:32 Total Bilirubin 0.3 mg/dL (0.15-1.2) 12/08/23 06:12 AST 23 U/L (0-32) 12/08/23 06:12 ALT 11 U/L (0-33) 12/08/23 06:12 Alkaline Phosphatase 54 U/L (35-105) 12/08/23 06:12 Troponin T Baseline 17 ng/L (0-10) H 12/07/23 13:27 Troponin T 120 Minute 110.5 ng/L (0-10) H 12/07/23 15:32 Delta Troponin T 93.5 ABS# (0-10) H* 12/07/23 15:32 Troponin T Hi Sens 6Hr 336.5 ng/L (0-10) H 12/07/23 19:42 Troponin T Hi Sens 6Hr Delta 319.5 ng/L (0-12) H* 12/07/23 19:42 Total Protein 6.3 g/dL (6.6-8.7) L 12/08/23 06:12 Albumin 3.4 g/dL (3.5-5.2) L 12/08/23 06:12 Globulin 2.9 g/dL (1.3-4.6) 12/08/23 06:12 Triglycerides 97 mg/dL (0-150) 12/08/23 06:12 Cholesterol 91 mg/dL (0-200) 12/08/23 06:12 LDL Cholesterol, Calc 34 mg/dL (50-129) L 12/08/23 06:12 HDL Cholesterol 38 mg/dL (60-100) L 12/08/23 06:12 LDL/HDL Ratio 0.89 RATIO (0.00-3.22) 12/08/23 06:12 Cholesterol/HDL Ratio 2.39 mg/dL (0.0-4.40) 12/08/23 06:12 Vitamin B12 271 pg/mL (232-1245) 12/07/23 15:32 Folate 9.2 ng/mL (4.8-37.3) 12/08/23 06:12 TSH 1.50 uIU/mL (0.27-4.20) 12/07/23 15:32 Urine Color Yellow (Yellow) 12/08/23 01:36 Urine Appearance Sl hazy (CLEAR) A 12/08/23 01:36 Urine pH 5 (5-7) 12/08/23 01:36 Ur Specific [place] 1.025 (1.005-1.030) 12/08/23 01:36 Urine Protein Neg (Negative) 12/08/23 01:36 Urine Glucose (UA) Norm (Normal) 12/08/23 01:36 Urine Ketones 1+ (Negative) H 12/08/23 01:36 Urine Blood 2+ (Negative) H 12/08/23 01:36 Urine Nitrate Negative (Negative) 12/08/23 01:36 Urine Bilirubin Neg (Negative) 12/08/23 01:36 Urine Urobilinogen Neg mg/dL (Negative) 12/08/23 01:36 Ur Leukocyte Esterase Negative (Negative) 12/08/23 01:36 Urine RBC 5-10 /hpf (0-2) H 12/08/23 01:36 Urine WBC 0-4 /hpf (0-5) H 12/08/23 01:36 Ur Squamous Epith Cells 10-15 /hpf (0-5) H 12/08/23 01:36 Ur Transition Epith Cell 0-4 /hpf 12/08/23 01:36 Amorphous Sediment Not Reportable 12/08/23 01:36 Urine Bacteria 1+ /hpf (NONE) H 12/08/23 01:36 Urine Mucus 1+ /hpf 12/08/23 01:36 Imaging Echo: Radiologist's impression: CONCLUSIONS Mildly increased left ventricular cavity size. Normal left ventricular wall thickness. Mildly decreased left ventricular systolic function. Global left ventricular hypokinesis. Grade II/IV diastolic dysfunction, moderately elevated filling pressures. Left ventricular ejection fraction is estimated at 45 %. Normal right ventricular size and systolic function. Mild pulmonary hypertension, RVSP 52 mmHg. Mildly increased left atrial size. Structurally normal mitral valve. Mild mitral valve regurgitation. Mildly dilated IVC. The previous echo was done 02/07/2021. The left ventricular function is reduced since then. Procedures Performed Myocardial perfusion scan: PERFUSION FINDINGS There is large in size, partially reversible perfusion defect seen in inferolateral wall. 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 FUNCTIONAL RESULTS (calculated via Gated SPECT) Stress Image LV EF (%): 58 Stress EDV (mL):142 TID: 1.01 Stress ESV (mL):59 FUNCTIONAL FINDINGS: There is normal left ventricular systolic function. IMPRESSIONS 1. Abnormal myocardial perfusion imaging with large area of prior infarct with significant axel-infarct ischemia seen in left circumflex artery territory. 2. LV systolic function is normal. Ronak Eckert MD (Electronically Signed) Final Date: 08 December 2023 11:14 Cardiac angiogram: Diagnostic Cath Status: Emergency Diagnostic Findings * Patient with severe chest pain and ST segment elevation in leads II, III and aVF. Previous evidence of similar findings with elevated troponin and normal coronary arteries. Angiogram done emergently because of ST elevation and chest pain. Incidentally there is a current stress test with was interpreted as a large amount of ischemia in the distribution of the circumflex.. * Coronary angiography reveals right coronary artery dominance. The left main is normal. The LAD and circumflex are normal. The right coronary artery is normal. Conclusions 1. Normal coronary arteries. Suspect coronary spasm. Vitals Last Vital Signs Temp 98.3 F 12/09/23 07:37 Pulse 61 12/09/23 07:37 Resp 27 H 12/09/23 07:37 BP 107/53 12/09/23 07:37 Pulse Ox 93 12/09/23 07:37 O2 Del Method Room Air 12/08/23 12:00 Discharge Plan Discharge Patient Disposition: Home Condition: Stable Prescriptions: New isosorbide mononitrate 30 mg Tablet Extended Release 24 Hr 30 mg PO DAILY Qty: 30 0RF amlodipine 2.5 mg tablet 2.5 mg PO DAILY Qty: 30 0RF Adult Low Dose Aspirin 81 mg tablet,delayed release (DR/EC) 81 mg PO DAILY Qty: 30 0RF Lasix 20 mg tablet 20 mg PO DAILY Qty: 30 0RF potassium chloride 10 mEq capsule, extended release 10 meq PO EVERY OTHER DAY Qty: 20 0RF Continued bupropion HCl 150 mg tablet sustained-release 12 hr 150 mg PO DAILY@2100 cetirizine [Zyrtec] 10 mg Tablet 10 mg PO DAILY@0900 lamotrigine 25 mg tablet 75 mg PO BID@, propafenone 225 mg tablet 225 mg PO TID hydrocodone-acetaminophen 7.5-325 mg tablet 1 tab PO Q6H losartan 25 mg tablet 25 mg PO DAILY@09 gabapentin 300 mg capsule 300 mg PO TID dabigatran etexilate [Pradaxa] 150 mg capsule 150 mg PO BID@, Crestor 10 mg tablet 10 mg PO DAILY@2100 famotidine 20 mg tablet 20 mg PO DAILY levothyroxine 50 mcg tablet 50 mcg PO DAILY Discharge Orders: Discharge Order (Routine); Ordered 12/09/23 Ordered By: Vinay Dorman Referrals: Erika Murdock FNP [Nurse Practitioner] - 12/22/23 1:30 pm Socorro Schrader FNP [Primary Care Provider] - 12/13/23 9:30 am Discharge Diet: Cardiac Discharge Activity: Resume usual activity and Increase activity as tolerated Patient Instructions: Furosemide (By mouth) (Lasix), Potassium Chloride (By mouth) (K-Dur, K-Anneliese, K-Tab, Nima Mur), Aspirin (By mouth) (Jose G Extra Strength, Jose G Aspirin Children's,..., Amlodipine (By mouth) (Hypertenipine-2.5, Norvasc, Norliqva), Isosorbide Mononitrate (By mouth) (Imdur, Imdur ER, Ismo), Angina (DC), Heart Failure (DC), Low-Sodium Diet (DC), CHF Stoplight, Opioid Safety, Post Heart Attack Stoplight Activity Restrictions/Additional Instructions: Amlodipine 2.5 mg daily, Imdur 30 mg daily has been added to your medication list. Please check your blood pressure daily and maintain a blood pressure diary. Please check your body weight daily and maintain a body weight diary. For body weight increases by 5 pounds overdressed today. You should start taking Lasix 20 mg daily daily your body weight comes down to your weight today. Restrict fluid intake to less than 1500 cc. Please follow-up with a primary care provider and with nurse practitioner from cardiology onsite appointment. Discharge Attestations Time Spent in Discharge Care*: greater than 30 min Specific Discharge Activities: educating patient, educating and/or supporting family/caregiver, discussing with pcp/other providers, discussing with medical case manager/social workers/dc planners, documenting/other paperwork and evaluating patient/reviewing data Quality Metrics Clinical Quality Measures [ Acute Myocardial Infaction { Clinical Trial Participant: No; Contraindication to aspirin: None; Aspirin prescribed; Contraindication to statin: None; Statin prescribed; Contraindication to PCI: Intervention not indicated; Contraindication to Fibrinolytics: None; fibrinolytics given}] Coding Level of Care Code 35430 Total time (in minutes) for Discharge: 60 Diagnoses HTN (hypertension) I10 Sinus bradycardia R00.1 Afib I48.91 Hyperlipidemia E78.5 Carotid artery disease I77.9 Elevated troponin R79.89 Coronary vasospasm I20.1
[2023-12-09] MEDS: levothyroxine 50 mcg Tablet PO (09:58)
[2023-12-09] MEDS: lamoTRIgine 25 mg Tablet 75 MG PO (09:58)
[2023-12-09] MEDS: gabapentin 300 mg Capsule PO (09:58)
[2023-12-09] MEDS: losartan 50 mg Tablet 25 MG PO (09:58)
[2023-12-09 10:00] VITALS: BMI 46.3
[2023-12-09] MEDS: propafenone 150 mg Tablet 225 MG PO (10:02)
[2023-12-09] MEDS: isosorbide mononitrate ER 30 mg Tablet PO (10:02)
[2023-12-09 10:25] VITALS: BP 107/53; PULSE 61; RESP 27; TEMP 36.8; O2SAT 93
--- NOTE | 2023-12-09 11:29 | PC.NURSE ---
Discharge Note Patient discharged to [home] via [w/c to POV] accompanied by [family]. Discharge instructions reviewed with patient and/or field representative. Mobile pharmacy medications and/or prescriptions provided. Belongings/home medications returned.
== END 2023-12-09 11:15 | disposition home or self-care (01) | DRG 281 ==
LOC: ER 16:15 → CSU 17:47
PROVIDERS: Internal Medicine Cardiovascular Disease; Admitting Provider Student in an Organized Health Care Education/Training Program; Emergency Provider Family Medicine; PCP Nurse Practitioner Family; Visit Provider Student in an Organized Health Care Education/Training Program
PROC: B2111ZZ Fluoroscopy of Multiple Coronary Arteries using Low Osmolar Contrast (ICD-10-PCS; principal; 2023-12-08 16:30)
DX: I21.4 Non-ST elevation (NSTEMI) myocardial infarction (principal); I48.20 Chronic atrial fibrillation, unspecified; I25.2 Old myocardial infarction; E78.5 Hyperlipidemia, unspecified; I10 Essential (primary) hypertension; I16.0 Hypertensive urgency; Z87.891 Personal history of nicotine dependence; R00.1 Bradycardia, unspecified; Z79.01 Long term (current) use of anticoagulants; E03.9 Hypothyroidism, unspecified; M79.7 Fibromyalgia; I65.29 Occlusion and stenosis of unspecified carotid artery; I20.1 Angina pectoris with documented spasm; G31.84 Mild cognitive impairment of uncertain or unknown etiology
CPT/HCPCS: 36415; 36416; 71045; 78452; 80053; 80061; 81001; 82607; 82746; 82962; 83036; 83540; 83550; 83735; 84100; 84443; 84484; 85025; 85049; 85730; 93005; 93017; 93306; 93454; 94664; 96365; 96367; 96375; 96376; 99152; 99153; 99285; A9500; C1769; C1887; C1894; C9113; J1644; J2250; J2270; J2405; J2785; J3010; J3490; J7030; Q0163; Q9967

== ENCOUNTER → 2023-12-23 13:45 | Outpatient (BNVA) | payer MEDICARE, MEDICAID, SELFPAY | PROVIDERS: PCP Nurse Practitioner Family; Visit Provider Nurse Practitioner Family | DX: I20.1 Angina pectoris with documented spasm (principal); I10 Essential (primary) hypertension; Z87.891 Personal history of nicotine dependence | CPT/HCPCS: 99213 ==

== ENCOUNTER 2024-02-22 14:30 | Outpatient (CLI) | payer MEDICARE, MEDICAID, SELFPAY | END 2024-02-22 14:31 | disposition home or self-care (01) | LOC: SLEEP 02-23 11:09 | PROVIDERS: PCP Nurse Practitioner Family; Visit Provider Nurse Practitioner Family | DX: R40.0 Somnolence (principal) | CPT/HCPCS: G0399 ==

== ENCOUNTER → 2024-07-11 19:04 | Outpatient (BNVA) | payer MEDICARE, SELFPAY | PROVIDERS: PCP Nurse Practitioner Family; Visit Provider Nurse Practitioner | DX: R39.9 Unspecified symptoms and signs involving the genitourinary system (principal) | CPT/HCPCS: 81000 ==

== ENCOUNTER 2024-07-13 11:00 | Observation (INO) | payer MEDICARE, MEDICAID, SELFPAY ==
[2024-07-13] VITALS (8 sets, daily range): BP systolic 109–174; BP diastolic 43–88; PULSE 53–60; RESP 16–18; TEMP 36.5–36.7; O2SAT 85–100; BMI 44.2
--- NOTE | 2024-07-13 11:06 | XRR_ITS ---
PROCEDURE INFORMATION: Exam: XR Right Hip Exam date and time: 07/13/2024 11:22 AM Age: 78 years old Clinical indication: Right hip; Patient HX: --rt hip pain no trauma TECHNIQUE: Imaging protocol: Radiologic exam of the right hip. Views: 1 view hip with pelvis when performed. COMPARISON: CR XR pelvis 1-2V* [id number] 02/25/2023 7:10 AM FINDINGS: Bones/joints: Unremarkable. No acute fracture. Soft tissues: Unchanged soft tissue calcification adjacent to the lateral right iliac bone and adjacent to the right lesser tuberosity is likely due to old soft tissue inflammation or injury. Otherwise, unremarkable soft tissues. Vasculature: Unchanged calcified phleboliths XR/XR hip RT 2-3V wo/w pel* [id number] IMPRESSION: 1. No acute findings. 2. Additional details as above.
--- NOTE | 2024-07-13 11:16 | ED_ITS ---
HPI - General Adult 2 General: Chief complaint: Extremity Injury, Lower Stated complaint: right hip pain Time Seen by Provider: 07/13/24 11:04 History of Present Illness: 78-year-old female presents emergency ro om via EMS complaining of right hip pain no trauma or fall. She twisted and felt a painful sensation in her right hip. No trauma. She states she cannot walk at all. Took 2 hydrocodone prior to coming in. She has not fallen at all that she states is her legs felt so weak she could not stand up she reports pain in the posterior aspect of her right hip and into her low back. No saddle paresthesia no fecal incontinence or urinary retention. No known history of any cancer. Associated symptoms: Deny chest pain, dyspnea or rash Related Data Home Medications Medication Instructions Recorded Confirmed bupropion HCl 150 mg tablet,12 hr 150 mg PO DAILY@2100 01/14/20 07/13/24 sustained-release cetirizine 10 mg tablet (Zyrtec) 10 mg PO DAILY@0900 01/14/20 07/13/24 gabapentin 300 mg capsule 300 mg PO TID 01/14/20 07/13/24 hydrocodone 7.5 mg-acetaminophen 1 tab PO Q6H 01/14/20 07/13/24 325 mg tablet lamotrigine 25 mg tablet 75 mg PO BID@01/14/20 07/13/24 propafenone 225 mg tablet 225 mg PO TID 01/14/20 07/13/24 famotidine 20 mg tablet 20 mg PO DAILY 12/07/23 07/13/24 levothyroxine 50 mcg tablet 50 mcg PO DAILY 12/07/23 07/13/24 amlodipine 2.5 mg tablet 2.5 mg PO DAILY 07/13/24 07/13/24 furosemide 20 mg tablet 20 mg PO DAILY 07/13/24 07/13/24 isosorbide mononitrate 30 mg 30 mg PO DAILY 07/13/24 07/13/24 tablet,extended release 24 hr potassium chloride 10 mEq 10 meq PO DAILY 07/13/24 07/13/24 capsule,extended release rosuvastatin 10 mg tablet 10 mg PO BEDTIME 07/13/24 07/13/24 Previous Rx's Medication Instructions Recorded aspirin 81 mg tablet,delayed 81 mg PO DAILY #30 tabs 02/08/24 release (Adult Low Dose Aspirin) rivaroxaban 20 mg tablet 20 mg PO DAILY #90 tabs 12/21/23 Allergies Allergy/AdvReac Type Severity Reaction Status Date / Time bacitracin Allergy ALGY-Rash Verified 07/11/24 18:49 [From Neosporin ([id number])] codeine Allergy ADR-Shakine Verified 07/11/24 18:49 ss neomycin Allergy ALGY-Rash Verified 07/11/24 18:49 [From Neosporin ([id number])] petrolatum,white Allergy ALGY-Rash Verified 07/11/24 18:49 [From Petroleum Jelly] polymyxin B Allergy ALGY-Rash Verified 07/11/24 18:49 [From Neosporin ([id number])] Review of Systems 2 Const: Denies: fever(s) or chills Card: Denies: chest pain Resp: Denies: dyspnea GI: Denies: abdominal pain : Denies: dysuria, urinary frequency or urinary urgency Musc: Reports: back pain and joint pain; Denies: neck pain Skin/Breast: Denies: rash PFSH ED 2 PFSH: Medical History Coronary vasospasm Elevated troponin BCC (basal cell carcinoma of skin) Carotid artery disease Hyperlipidemia Non-ST elevation IA (NSTEMI) History of nonmelanoma skin cancer Fibromyalgia Afib Sinus bradycardia Diverticulitis HTN (hypertension) Surgical History History of partial colectomy History of colonoscopy History of hysterectomy History of appendectomy Family History Other CAD (coronary artery disease) Social History Smoking and tobacco/nicotine status: unknown if used tobacco/nicotine Alcohol intake: never Physical Exam 2 Const: GENERAL APPEARANCE: cooperative ORIENTATION/CONSCIOUSNESS: Yes awake, Yes oriented to person, Yes oriented to place and Yes oriented to time HENMT: COMMON NORMALS: normocephalic, atraumatic and hearing grossly normal bilaterally HEAD & SCALP: normocephalic and atraumatic Resp: COMMON NORMALS: normal respiratory effort, No retractions, No use of accessory muscles and clear to auscultation bilaterally AUSCULTATION: clear to auscultation bilaterally Cardio: COMMON NORMALS: regular rate, regular rhythm and No murmurs present (Cardio) RATE: regular rate RHYTHM: regular rhythm GI: COMMON NORMALS: Soft to palpation and No hepatosplenomegaly present A USCULTATION: Yes normoactive bowel sounds PALPATION: Yes Soft to palpation, No Tenderness to palpation present (GI), No Guarding due to palpation present (GI) and Yes No hepatosplenomegaly present Extremity: COMMON NORMALS: normal to inspection, capillary refill normal, no clubbing, cyanosis or edema, no calf tenderness and no pedal edema Neuro: SENSORIUM/ORIENTATION: Yes oriented to person, Yes oriented to place and Yes oriented to time Skin: COMMON NORMALS: no rashes or lesions noted GENERAL SKIN EXAM: no rashes or lesions noted Course 2 Vital Signs: Vital signs: Vital Signs Pulse Rate 53 L 07/13/24 14:00 Respiratory Rate 16 07/13/24 14:00 Blood Pressure 131/55 07/13/24 14:00 Pulse Oximetry 100 07/13/24 14:00 Oxygen Delivery Me thod Nasal Cannula 07/13/24 14:00 Oxygen Flow Rate 2 07/13/24 14:00 [facility] - General Adult Medical Decision Making Morphine given for pain pain improved with she became a little bit hypoxic and needed oxygen supplementation. Plain x-rays of the hip were negative CT of the back was negative. If there could serge she may have had a pathologic fracture not seen however she could not stand up after that. CT of the hip and pelvis did not show any occult fracture. Her pain is improved. Repeat exam straight leg raising is negative dorsum plantarflex strength remains 5 of 5 sensation lower extremities normal. Will admit her for pain control and ability to ambulate. She may need further imaging including possible MRI discussed with hospitalist will also consult with Dr. Saavedra. Lab Data 07/13/24 12:00 07/13/24 12:00 Radiology Impressions Hip/Pelvis X-Ray 07/13/24 11:06 IMPRESSION: 1. No acute findings. 2. Additional details as above. Lumbar Spine CT 07/13/24 11:44 IMPRESSION: 1. Lumbar spondylosis is detailed above. 2. Possible left paracentral disc herniation at the L4-L5 level, and possible right paracentral disc herniation at the L5-S1 level. The appearance of these, however, may be due to artifact. 3. No other acute lumbar spine findings. Additional lumbar spine findings as above. 4. Diffusely dilated pancreatic duct. Consider MRCP and/or ERCP for this. 5. 1 cm soft tissue mass versus hyperdense cyst lateral left kidney. Recommend contrast-enhanced MRI of this. 6. Minimal nodularity of the adrenal glands. COMMENTS: Consistent with the [employer]'s Incidental Findings Committee white paper (J Am Alexandre Radiol 2018): Any incidental renal lesion less than 1 cm or classified as too small to characterize, or any incidental cystic renal lesion characterized as simple-appearing, is likely benign. No follow-up imaging is recommended for these lesions per consensus recommendations based on imaging criteria. Pelvis CT 07/13/24 12:54 IMPRESSION: 1. No acute bone or joint findings. 2. Additional details as above. Chest X-Ray 07/13/24 14:49 IMPRESSION: No acute disease. Laboratory Results WBC 5.88 10^3/uL (3.29-11.43) 07/13/24 12:00 RBC 3.86 10^6/uL (3.85-5.65) 07/13/24 12:00 Hgb 11.80 g/dL (11.27-16.99) 07/13/24 12:00 Hct 38.1 % (36-47) 07/13/24 12:00 MCV 98.7 fl (85-98) H 07/13/24 12:00 MCH 30.6 pg (27-33) 07/13/24 12:00 MCHC 31.0 g/dL (30-55) 07/13/24 12:00 RDW 14.2 % (12.1-15.1) 07/13/24 12:00 Plt Count 180 10^3/cmm (157-399) 07/13/24 12:00 MPV 9.8 fL (7.4-10.4) 07/13/24 12:00 Neut % (Auto) 52.5 % 07/13/24 12:00 Lymph % (Auto) 34.5 % 07/13/24 12:00 [place] % (Auto) 9.4 % 07/13/24 12:00 Eos % (Auto) 3.1 % 07/13/24 12:00 Baso % (Auto) 0.3 % 07/13/24 12:00 Neut # (Auto) 3.09 10^3/uL (1.8-7.7) 07/13/24 12:00 Lymph # (Auto) 2.0 10^3/uL (0.8-4.8) 07/13/24 12:00 [place] # (Auto) 0.6 10^3/uL (0.2-0.9) 07/13/24 12:00 Eos # (Auto) 0.2 10^3/uL (0.0-0.8) 07/13/24 12:00 Baso # (Auto) 0.0 10^3/uL (0.0-0.1) 07/13/24 12:00 Nucleated RBC % (auto) 0 % 07/13/24 12:00 Nucleated RBCs # 0.0 /100WBC 07/13/24 12:00 Sodium 138 mmol/L (136-145) 07/13/24 12:00 Potassium 4.1 mmol/L (3.5-5.1) 07/13/24 12:00 Chloride 101 mmol/L (98-107) 07/13/24 12:00 Carbon Dioxide 28 mmol/L (22-29) 07/13/24 12:00 Anion Gap 13.1 (5-19) 07/13/24 12:00 BUN 15 mg/dL (8-23) 07/13/24 12:00 Creatinine 1.1 mg/dL (0.5-0.9) H 07/13/24 12:00 GFR Calculation Not Reportable 07/13/24 12:00 Glucose 108 mg/dL (65-115) 07/13/24 12:00 Calculated Osmolality 287 mOsm/kg (285-295) 07/13/24 12:00 Calcium 8.6 mg/dL (8.5-10.5) 07/13/24 12:00 Total Bilirubin 0.2 mg/dL (0.15-1.2) 07/13/24 12:00 AST 15 U/L (0-32) 07/13/24 12:00 ALT 10 U/L (0-33) 07/13/24 12:00 Alkaline Phosphatase 64 U/L (35-105) 07/13/24 12:00 Total Protein 6.7 g/dL (6.6-8.7) 07/13/24 12:00 Albumin 3.4 g/dL (3.5-5.2) L 07/13/24 12:00 Globulin 3.3 g/dL (1.3-4.6) 07/13/24 12:00 Lipase 16 U/L (13-60) 07/13/24 12:00 Urine Color Yellow (Yellow) 07/13/24 11:37 Urine Appearance Cloudy (CLEAR) A 07/13/24 11:37 Urine pH 5.5 (5-7) 07/13/24 11:37 Ur Specific [place] 1.011 (1.005-1.030) 07/13/24 11:37 Urine Protein Negative (Negative) 07/13/24 11:37 Urine Glucose (UA) Negative (Normal) 07/13/24 11:37 Urine Ketones Negative (Negative) 07/13/24 11:37 Urine Blood Negative (Negative) 07/13/24 11:37 Urine Nitrate Negative (Negative) 07/13/24 11:37 Urine Bilirubin Negative (Negative) 07/13/24 11:37 Urine Urobilinogen 0.2 mg/dL (Negative) 07/13/24 11:37 Ur Leukocyte Esterase Negative (Negative) 07/13/24 11:37 Urine RBC 0-2 /hpf (0-2) 07/13/24 11:37 Urine WBC 0-5 /hpf (0-5) 07/13/24 11:37 Ur Squamous Epith Cells 0-5 /hpf (0-5) 07/13/24 11:37 Amorphous Sediment Not Reportable 07/13/24 11:37 Urine Bacteria None seen /hpf (NONE) 07/13/24 11:37 Hyaline Casts 1.21 /lpf 07/13/24 11:37 All radiology interpretation(s) finalized by discharge Discharge Plan Discharge Patient Disposition: Placed in Observation Admit Provider: Robert Huston Clinical Impression: Acute pain of right hip, Back pain with radiculopathy, Inability to ambulate due to right hip Condition: Stable Coding Level of Care Code ED Coding Compliance Manager for [facility]
--- NOTE | 2024-07-13 11:44 | CTR_ITS ---
PROCEDURE INFORMATION: Exam: CT Lumbar Spine Without Contrast Exam date and time: 07/13/2024 1:02 PM Age: 78 years old Clinical indication: Low back pain TECHNIQUE: Imaging protocol: Computed tomography of the lumbar spine without contrast. Radiation optimization: All CT scans at this facility use at least one of these dose optimization techniques: automated exposure control; mA and/or kV adjustment per patient size (includes targeted exams where dose is matched to clinical indication); or iterative reconstruction. COMPARISON: MR lumbar spine wo con* [id number] 06/03/2023 2:34 PM RADIATION DOSE METRICS: Total DLP (mGy-cm): 1594 FINDINGS: Bones/joints: 3 mm retrolisthesis of T12, L1, and L5. 2 mm retrolisthesis of L3 and L2. No fracture. Severe bilateral facet osteoarthritis at the L4-L5 level. Mild bilateral facet osteoarthritis at all other levels in the lumbar spine. Moderate degenerative disc disease at the L2-L3 level. Minimal or mild degenerative disc disease at all other levels. Diffuse disc bulge at all levels. Possible left paracentral disc herniation at the L4-L5 level. This may be artifact. Possible right paracentral disc herniation at the L5-S1 level. This may be artifact. No other obvious disc herniation, however, evaluation for such on a noncontrast CT is quite limited. Mild spinal stenosis at the L1-L2 and L5-S1 levels. Moderate spinal stenosis at the L2-L3 and L3-L4 levels. Severe spinal stenosis at the L4-L5 level. No significant neural foraminal narrowing. Otherwise, unremarkable. Pancreas: Diffusely dilated pancreatic duct. Adrenal glands: Minimal nodularity of the adrenal glands. Kidneys and ureters: 1 cm exophytic possible soft tissue mass lateral left kidney. Vasculature: Moderate amount of arterial calcification. Soft tissues: Otherwise, unremarkable soft tissues. CT/CT lumbar spine wo con* [id number] IMPRESSION: 1. Lumbar spondylosis is detailed above. 2. Possible left paracentral disc herniation at the L4-L5 level, and possible right paracentral disc herniation at the L5-S1 level. The appearance of these, however, may be due to artifact. 3. No other acute lumbar spine findings. Additional lumbar spine findings as above. 4. Diffusely dilated pancreatic duct. Consider MRCP and/or ERCP for this. 5. 1 cm soft tissue mass versus hyperdense cyst lateral left kidney. Recommend contrast-enhanced MRI of this. 6. Minimal nodularity of the adrenal glands. COMMENTS: Consistent with the [employer]'s Incidental Findings Committee white paper (J Am Alexandre Radiol 2018): Any incidental renal lesion less than 1 cm or classified as too small to characterize, or any incidental cystic renal lesion characterized as simple-appearing, is likely benign. No follow-up imaging is recommended for these lesions per consensus recommendations based on imaging criteria.
[2024-07-13 11:49] LABS: Bilirubin Urine Negative (Negative); Blood Urine Negative (Negative); Glucose Urine UA Negative (Normal); Ketones Urine Negative (Negative); Leukocyte Esterase Urine Negative (Negative); Nitrate Urine Negative (Negative); Protein Urine Negative (Negative); Specific Gravity, Urine 1.011 (1.005-1.030); Urine Appearance Cloudy (CLEAR); Urine Color Yellow (Yellow); Urobilinogen Urine 0.2 mg/dL (Negative); pH Urine 5.5 (5-7)
[2024-07-13 11:54] LABS: Add Urine Microscopic? YES; Bacteria Urine None Seen /hpf; Hyaline Casts Urine 1.21 /lpf; RBC Urine 0-2 /hpf (0-2); Squamous Epithelial Cell Urine 0-5 /hpf (0-5); WBC Urine 0-5 /hpf (0-5)
[2024-07-13] MEDS: morphine 4 mg/mL SDV 1 mL 2 MG IVP (12:31)
[2024-07-13] MEDS: ondansetron 2 mg/ML SDV 2 mL 4 MG IVP (12:31)
--- NOTE | 2024-07-13 12:54 | CTR_ITS ---
PROCEDURE INFORMATION: Exam: CT Pelvis Without Contrast, Skeleton Exam date and time: 07/13/2024 1:05 PM Age: 78 years old Clinical indication: Hip pain; Right hip; Additional info: Hip pain cant stand TECHNIQUE: Imaging protocol: Computed tomography of the pelvis without contrast. Exam focused on the skeleton. Radiation optimization: All CT scans at this facility use at least one of these dose optimization techniques: automated exposure control; mA and/or kV adjustment per patient size (includes targeted exams where dose is matched to clinical indication); or iterative reconstruction. COMPARISON: CR XR hip RT 2-3V wo/w pel* [id number] 07/13/2024 11:22 AM RADIATION DOSE METRICS: Total DLP (mGy-cm): 982 FINDINGS: Intestine: Diverticula from the visualized colon. No diverticulitis. Surgical material around small bowel in the right pelvis. Otherwise, unremarkable visualized bowel. Intraperitoneal space: Tiny amount of free fluid in the pelvis. No free air. Vasculature: Moderate amount of arterial calcification. Otherwise, grossly unremarkable noncontrast vasculature. Reproductive: Hysterectomy. Otherwise, grossly unremarkable, but limited by artifact. Urinary bladder: Grossly unremarkable urinary bladder, but limited by artifact. Bones/joints: No fracture, dislocation, or diastasis. No significant arthritis. Otherwise, unremarkable. Soft tissues: Small amounts of soft tissue calcification adjacent to both proximal femurs and adjacent to both iliac bones is likely due to old soft tissue inflammation and/or injury. Otherwise, unremarkable visualized body wall. Otherwise, unremarkable soft tissues. Lymph nodes: No obviously abnormal lymph nodes. CT/CT pelvis wo con [id number] IMPRESSION: 1. No acute bone or joint findings. 2. Additional details as above.
[2024-07-13 14:49] LABS: Basophils % 0.3 %; Eosinophils # 0.2 10^3/uL (0.0-0.8); Eosinophils % 3.1 %; Hematocrit 38.1 % (36-47); Lymphocytes % 34.5 %; Mean Corpuscular Hemoglobin 30.6 pg (27-33); Mean Corpuscular Volume 98.7 fl (85-98); Mean Platelet Volume 9.8 fL (7.4-10.4); Monocytes # 0.6 10^3/uL (0.2-0.9); Monocytes % 9.4 %; Neutrophils # 3.09 10^3/uL (1.8-7.7); Neutrophils % 52.5 %; Nucleated Red Blood Cells % 0 %; Platelet Count 180 10^3/cmm (157-399); Red Blood Count 3.86 10^6/uL (3.85-5.65); Red Cell Distribution Width 14.2 % (12.1-15.1); White Blood Count 5.88 10^3/uL (3.29-11.43)
--- NOTE | 2024-07-13 14:49 | XRR_ITS ---
PROCEDURE INFORMATION: Exam: XR Chest Exam date and time: 07/13/2024 3:05 PM Age: 78 years old Clinical indication: Cough and dyspnea; Additional info: Dyspnea/cough TECHNIQUE: Imaging protocol: Radiologic exam of the chest. Views: 1 view. COMPARISON: CR XR chest 1V portable [id number] 12/07/2023 1:28 PM FINDINGS: Lungs: Unremarkable. No consolidation. Pleural spaces: Unremarkable. No pleural effusion. No pneumothorax. Heart/Mediastinum: Unremarkable. No cardiomegaly. Bones/joints: Mild scoliosis. Mild and moderate multilevel spondylosis. Otherwise, unremarkable. XR/XR chest 1V portable [id number] IMPRESSION: No acute disease.
[2024-07-13 15:07] LABS: Alanine Aminotransferase 10 U/L (0-33); Albumin Level 3.4 g/dL (3.5-5.2); Alkaline Phosphatase 64 U/L (35-105); Anion Gap 13.1 (5-19); Aspartate Amino Transferase 15 U/L (0-32); Blood Urea Nitrogen 15 mg/dL (8-23); Calcium 8.6 mg/dL (8.5-10.5); Carbon Dioxide 28 mmol/L (22-29); Chloride 101 mmol/L (98-107); Creatinine Clr Calc Pharmacy 58.5855; Globulin 3.3 g/dL (1.3-4.6); Glucose 108 mg/dL (65-115); Lipase 16 U/L (13-60); Osmolality Calculated 287 mOsm/kg (285-295); Potassium 4.1 mmol/L (3.5-5.1); Sodium 138 mmol/L (136-145); Total Bilirubin 0.2 mg/dL (0.15-1.2); Total Protein 6.7 g/dL (6.6-8.7)
--- NOTE | 2024-07-13 16:17 | P.HP_ITS ---
Providers/Chief Complaint 2 Primary Care Provider: CRISTIAN Willson Chief Complaint: right hip pain History of Present Illness 78-year-old lady with history of DJD spine, had a pop in her spine about 6 weeks ago and since then has had some worsening intermittent pain, but then this morning had another pop when trying to reposition in bed and then called her daughter because was having much worse pain in the area of her right side hip/lower back/pelvis, bothering her to the point that she could not get off the toilet. She does have multiple medical comorbidities including history of congestive heart failure, NSTEMI, obstructive sleep apnea but has not been tolerant of CPAP, carotid artery disease, atrial fibrillation, hypertension, morbid obesity, other medical problems. She lives alone. In ER she is still having severe pain with active or passive repositioning in bed. Meza catheter has to be placed as she cannot get on the bedpan even after getting IV morphine. Hip and pelvis x-ray and chest x-ray without acute findings. Pelvis CT without acute bone or joint findings, CT lumbar spine with lumbar spondylosis, possible left paracentral disc herniation with L4-L5 level, possible right paracentral disc herniation at L5-S1 level. Although these findings may be artifactual. Incidentally noted diffusely dilated pancreatic duct, consider MRCP and/or ERCP. Incidentally also noted 1 cm soft tissue mass versus hyperdense cyst lateral left kidney, recommended contrast-enhanced MRI. Minimal nodularity of adrenal glands. Review of Systems 2 Const: Denies: fever(s) ENMT: Denies: throat pain Card: Denies: chest pain Resp: Denies: dyspnea, productive cough, change in phlegm color or hemoptysis GI: Denies: abdominal pain, nausea or vomiting Musc: Reports: other (Pain Per HPI); Denies: joint swelling or joint redness Skin/Breast: Denies: rash or new lesions Neuro: Denies: headache(s) or confusion Medications/Allergies Home Medications Medication Instructions Recorded Confirmed Last Taken Type bupropion HCl 150 mg tablet,12 hr 150 mg PO DAILY@2100 01/14/20 07/13/24 07/12/24 History sustained-release cetirizine 10 mg tablet (Zyrtec) 10 mg PO DAILY@0900 01/14/20 07/13/24 07/13/24 History gabapentin 300 mg capsule 300 mg PO TID 01/14/20 07/13/24 07/13/24 History hydrocodone 7.5 mg-acetaminophen 1 tab PO Q6H 01/14/20 07/13/24 07/13/24 History 325 mg tablet lamotrigine 25 mg tablet 75 mg PO BID@,01/14/20 07/13/24 07/13/24 History propafenone 225 mg tablet 225 mg PO TID 01/14/20 07/13/24 07/13/24 History famotidine 20 mg tablet 20 mg PO DAILY 12/07/23 07/13/24 07/13/24 History levothyroxine 50 mcg tablet 50 mcg PO DAILY 12/07/23 07/13/24 07/13/24 History aspirin 81 mg tablet,delayed 81 mg PO DAILY #30 tabs 12/09/23 07/13/24 07/13/24 Rx release (Adult Low Dose Aspirin) rivaroxaban 20 mg tablet 20 mg PO DAILY #90 tabs 12/21/23 07/13/24 07/13/24 Rx amlodipine 2.5 mg tablet 2.5 mg PO DAILY 07/13/24 07/13/24 07/13/24 History furosemide 20 mg tablet 20 mg PO DAILY 07/13/24 07/13/24 07/13/24 History isosorbide mononitrate 30 mg 30 mg PO DAILY 07/13/24 07/13/24 07/13/24 History tablet,extended release 24 hr potassium chloride 10 mEq 10 meq PO DAILY 07/13/24 07/13/24 07/13/24 History capsule,extended release rosuvastatin 10 mg tablet 10 mg PO BEDTIME 07/13/24 07/13/24 07/12/24 History Allergies Allergy/AdvReac Type Severity Reaction Status Date / Time bacitracin Allergy ALGY-Rash Verified 07/11/24 18:49 [From Neosporin ([id number])] codeine Allergy ADR-Shakine Verified 07/11/24 18:49 ss neomycin Allergy ALGY-Rash Verified 07/11/24 18:49 [From Neosporin ([id number])] petrolatum,white Allergy ALGY-Rash Verified 07/11/24 18:49 [From Petroleum Jelly] polymyxin B Allergy ALGY-Rash Verified 07/11/24 18:49 [From Neosporin ([id number])] PFSH Acute 2 PFSH: Medical History Coronary vasospasm Elevated troponin BCC (basal cell carcinoma of skin) Carotid artery disease Hyperlipidemia Non-ST elevation [place] (NSTEMI) History of nonmelanoma skin cancer Fibromyalgia Afib Sinus bradycardia Diverticulitis HTN (hypertension) Surgical History History of partial colectomy History of colonoscopy History of hysterectomy History of appendectomy Family History Other CAD (coronary artery disease) Social History Smoking and tobacco/nicotine status: unknown if used tobacco/nicotine Alcohol intake: never Vitals/I&O/Wt Last Vital Signs Pulse 53 L 07/13/24 14:00 Resp 16 07/13/24 14:00 BP 131/55 07/13/24 14:00 Pulse Ox 100 07/13/24 14:00 O2 Del Method Nasal Cannula 07/13/24 14:00 O2 Flow Rate 2 07/13/24 14:00 Weight last 48 hrs Weight 124.284 kg Physical Exam 2 Narrative: Accompanied by her daughter. Const: COMMON NORMALS: patient oriented x3 and alert GENERAL APPEARANCE: c ooperative NUTRITIONAL APPEARANCE: obese morbidly obese O RIENTATION/CONSCIOUSNESS: Yes awake HENMT: COMMON NORMALS: oropharynx normal Neck/C-Spine: COMMON NORMALS: no JVD Resp: COMMON NORMALS: normal respiratory effort and clear to auscultation bilaterally AUSCULTATION: clear to auscultation bilaterally Cardio: COMMON NORMALS: no JVD, regular rhythm, S1 normal heart sound present, S2 normal heart sound present and No murmurs present (Cardio) RHYTHM: regular rhythm HEART SOUNDS: S1 normal heart sound present and S2 normal heart sound present GI: COMMON NORMALS: Normal to inspection, nondistended, normoactive bowel sounds present, Soft to palpation and non-tender PALPATION: Yes Soft to palpation Extremity: COMMON NORMALS: no joint enlargement and no pedal edema OTHER: Does tolerate right leg raise if done slowly, but any movement [id number] or bending of the knee is no longer tolerable with pain and right side lower back/pelvis/posterior hip. Neuro: COMMON NORMALS: patient oriented x3 and moves all extremities S ENSORIUM/ORIENTATION: Yes alert Skin: COMMON NORMALS: no rashes or lesions noted GENERAL SKIN EXAM: no rashes or lesions noted Data 07/13/24 12:00 07/13/24 12:00 A&P Assessment and plan (1) Severe low back pain: Intractable pain, severe, unable to get up or get around or even reposition in bed or get on the bedpan even after IV morphine, pain located in the area of right lower back, right side posterior pelvis, right side posterior hip, she cannot describe an exact location. Unable to properly examine due to morbid obesity and severe pain. She is tolerating straight leg raise, but any lateral motion or attempts to bend the knee is in nonstarter. Reviewed vitals, CBC, CMP, UA, lumbar spine CT, pelvis CT, hip/pelvis x-ray, chest x-ray, spine MRI from June 2023 with multilevel DJD, with among others moderate central canal stenosis L4-5, annular bulging L2-3 with slight impingement on right subarticular recess with traversing right L3 nerve root, moderate to advanced facet arthropathy at L4-5 and L5-S1. Reviewed ER note, discussed with ER provider. Orthopedic surgery is being consulted as well for consideration of any additional imaging that may be beneficial with current time and orthopedic opinion. Otherwise admission required due to severe intractable pain despite IV morphine. Will continue with IV Dilaudid for severe breakthrough pain, will give acetaminophen, hydrocodone for mild to moderate pain. Apply lidocaine patch. Continue home gabapentin, bupropion. For now she has been requiring Meza catheter due to being unable to reposition even to use a bedpan. PT assessment. She also lives alone and likely will need rehabilitation. Case management consultation. (2) Right hip pain: Pelvis CT reviewed. Appreciate orthopedic assessment, recommendations for any additional imaging. Plan Morbid obesity, Follow-up with primary provider regarding assistance with weight loss options CAD, history of NSTEMI, Continue aspirin, statin, Imdur CHF, history of EF 45%,Continue Lasix Obstructive sleep apnea, unable to tolerate CPAP Carotid artery disease, Continue aspirin, statin Atrial fibrillationContinue propafenone, Xarelto Hypertension, Continue amlodipine, Imdur Other comorbidities Attestations 2 Medical Necessity Statement*: Place in observation for additional assessment and management of severe intractable right lower back/buttock/posterior hip pain despite IV morphine, unable to reposition to even use a bedpan, unable to get up and ambulate, with history of multilevel DJD, spinal canal stenosis. and High MDM includes amount and/or complexity of data reviewed/ordered [ previous or external records, resulted lab(s)/test(s) and other healthcare professional discussion] and described risk of complication, morbidity or mortality of management as documented Diagnoses Severe low back pain M54.50 Right hip pain M25.551
[2024-07-13] MEDS: HYDROcodone-acetaminophen 7.5-325 mg Tablet 1 TAB PO ×2 (17:34→23:00)
[2024-07-13] MEDS: propafenone 150 mg Tablet 225 MG PO (20:21)
[2024-07-13] MEDS: atorvastatin 40 mg Tablet PO (20:21)
[2024-07-13] MEDS: buPROPion SR (12 HR) 150 mg Tablet PO (20:21)
[2024-07-13] MEDS: lamoTRIgine 25 mg Tablet 75 MG PO (20:21)
[2024-07-13] MEDS: gabapentin 300 mg Capsule PO (20:21)
[2024-07-14] VITALS (8 sets, daily range): BP systolic 101–131; BP diastolic 41–70; PULSE 56–70; RESP 16–19; TEMP 36.7–36.9; O2SAT 90–95
[2024-07-14] MEDS: HYDROcodone-acetaminophen 7.5-325 mg Tablet 1 TAB PO ×3 (04:57→17:29)
[2024-07-14 05:20] LABS: Basophils % 0.3 %; Eosinophils # 0.2 10^3/uL (0.0-0.8); Eosinophils % 2.9 %; Lymphocytes # 1.9 10^3/uL (0.8-4.8); Mean Corpuscular HGB Conc 30.8 g/dL (30-55); Mean Corpuscular Hemoglobin 30.2 pg (27-33); Mean Platelet Volume 9.2 fL (7.4-10.4); Monocytes # 0.7 10^3/uL (0.2-0.9); Monocytes % 9.6 %; Neutrophils # 4.27 10^3/uL (1.8-7.7); Neutrophils % 59.6 %; Nucleated Red Blood Cells % 0 %; Platelet Count 179 10^3/cmm (157-399); Red Blood Count 3.98 10^6/uL (3.85-5.65); Red Cell Distribution Width 14.1 % (12.1-15.1); White Blood Count 7.16 10^3/uL (3.29-11.43)
[2024-07-14 05:45] LABS: Anion Gap 12.4 (5-19); Blood Urea Nitrogen 18 mg/dL (8-23); Calcium 9.2 mg/dL (8.5-10.5); Carbon Dioxide 32 mmol/L (22-29); Chloride 103 mmol/L (98-107); Creatinine Clr Calc Pharmacy 54.8886; Glucose 139 mg/dL (65-115); Magnesium 2.3 mg/dL (1.7-2.3); Osmolality Calculated 300 mOsm/kg (285-295); Potassium 4.4 mmol/L (3.5-5.1); Sodium 143 mmol/L (136-145)
--- NOTE | 2024-07-14 07:03 | P.CONIM_ITS ---
Providers/Reason For Consult 2 Consulting Physician/Specialty*: Hospitalist Reason for Consult*: Back and hip pain Attending Physician: Robert Huston Primary Care Provider: CRISTIAN Willson History of Present Illness History of Present Illness Sandra Mcgrath is a 78 year old femalehad a pop in her spine about 6 weeks ago and since then has had some worsening intermittent pain, but then this morning had another pop when trying to reposition in bed and then called her daughter because was having much worse pain in the area of her right side hip/lower back/pelvis, bothering her to the point that she could not get off the toilet. Review of Systems 2 Const: Denies: fever(s) ENMT: Denies: throat pain Card: Denies: chest pain Resp: Denies: dyspnea, productive cough, change in phlegm color or hemoptysis GI: Denies: abdominal pain, nausea or vomiting Musc: Reports: other (Pain Per HPI); Denies: joint swelling or joint redness Skin/Breast: Denies: rash or new lesions Neuro: Denies: headache(s) or confusion Medications/Allergies Home Medications Medication Instructions Recorded Confirmed Last Taken Type bupropion HCl 150 mg tablet,12 hr 150 mg PO DAILY@2100 01/14/20 07/13/24 07/12/24 History sustained-release cetirizine 10 mg tablet (Zyrtec) 10 mg PO DAILY@0900 01/14/20 07/13/24 07/13/24 History gabapentin 300 mg capsule 300 mg PO TID 01/14/20 07/13/24 07/13/24 History hydrocodone 7.5 mg-acetaminophen 1 tab PO Q6H 01/14/20 07/13/24 07/13/24 History 325 mg tablet lamotrigine 25 mg tablet 75 mg PO BID@01/14/20 07/13/24 07/13/24 History propafenone 225 mg tablet 225 mg PO TID 01/14/20 07/13/24 07/13/24 History famotidine 20 mg tablet 20 mg PO DAILY 12/07/23 07/13/24 07/13/24 History levothyroxine 50 mcg tablet 50 mcg PO DAILY 12/07/23 07/13/24 07/13/24 History aspirin 81 mg tablet,delayed 81 mg PO DAILY #30 tabs 12/09/23 07/13/24 07/13/24 Rx release (Adult Low Dose Aspirin) rivaroxaban 20 mg tablet 20 mg PO DAILY #90 tabs 12/21/23 07/13/24 07/13/24 Rx amlodipine 2.5 mg tablet 2.5 mg PO DAILY 07/13/24 07/13/24 07/13/24 History furosemide 20 mg tablet 20 mg PO DAILY 07/13/24 07/13/24 07/13/24 History isosorbide mononitrate 30 mg 30 mg PO DAILY 07/13/24 07/13/24 07/13/24 History tablet,extended release 24 hr potassium chloride 10 mEq 10 meq PO DAILY 07/13/24 07/13/24 07/13/24 History capsule,extended release rosuvastatin 10 mg tablet 10 mg PO BEDTIME 07/13/24 07/13/24 07/12/24 History Allergies Allergy/AdvReac Type Severity Reaction Status Date / Time bacitracin Allergy ALGY-Rash Verified 07/11/24 18:49 [From Neosporin ([id number])] codeine Allergy ADR-Shakine Verified 07/11/24 18:49 ss neomycin Allergy ALGY-Rash Verified 07/11/24 18:49 [From Neosporin ([id number])] petrolatum,white Allergy ALGY-Rash Verified 07/11/24 18:49 [From Petroleum Jelly] polymyxin B Allergy ALGY-Rash Verified 07/11/24 18:49 [From Neosporin ([id number])] Current Medications Generic Name Dose Route Start Last Admin Trade Name Dima PRN Reason Stop Dose Admin Hydrocodone Bitart/Acetaminophen 1 tab 07/13/24 17:08 07/14/24 04:57 Hydrocodone-Acetaminophen 7.5-325 Mg Tablet PO 1 tab Q6H TORREY Administration Atorvastatin Calcium 40 mg 07/13/24 21:00 07/13/24 20:21 Atorvastatin 40 Mg Tablet PO 40 mg BEDTIME TORREY Administration Bupropion HCl 150 mg 07/13/24 21:00 07/13/24 20:21 Bupropion Sr (12 Hr) 150 Mg Tablet PO 150 mg DAILY@2100 TORREY Administration Gabapentin 300 mg 07/13/24 21:00 07/13/24 20:21 Gabapentin 300 Mg Capsule PO 300 mg TID TORREY Administration Lamotrigine 75 mg 07/13/24 21:00 07/13/24 20:21 Lamotrigine 25 Mg Tablet PO 75 mg BID@ TORREY Administration Propafenone HCl 225 mg 07/13/24 21:00 07/13/24 20:21 Propafenone 150 Mg Tablet PO 225 mg TID TORREY Administration PFSH Acute 2 PFSH: Medical History Coronary vasospasm Elevated troponin BCC (basal cell carcinoma of skin) Carotid artery disease Hyperlipidemia Non-ST elevation ME (NSTEMI) History of nonmelanoma skin cancer Fibromyalgia Afib Sinus bradycardia Diverticulitis HTN (hypertension) Surgical History History of partial colectomy History of colonoscopy History of hysterectomy History of appendectomy Family History Other CAD (coronary artery disease) Social History Smoking and tobacco/nicotine status: unknown if used tobacco/nicotine Alcohol intake: never Vitals/I&O/Wt Last Vital Signs Temp 98.1 F 07/14/24 04:00 Pulse 58 L 07/14/24 05:46 Resp 17 07/14/24 04:00 BP 126/65 07/14/24 04:00 Pulse Ox 91 07/14/24 04:00 O2 Del Method Room Air 07/14/24 04:00 O2 Flow Rate 2 07/13/24 17:19 07/13/24 07/14/24 07/14/24 22:59 06:59 14:59 Intake Total 120 / 120 120 / 240 Output Total 1000 / 1000 500 / 1500 Balance -880 / -880 -380 / -1260 Weight last 48 hrs Weight 283 lb 8 oz Weight 284 lb 6 oz Weight 274 lb Physical Exam 2 Narrative: Patient was asleep when I walked into the room. When I tried to examine her just having her move in bed given her severe pain. Urinary Catheter Management: Meza: Cath Placed During This Visit: yes Reason for Continuing Indwelling Catheter: Other Urinary Catheter Date of Insertion: 07/13/24 Data 07/14/24 05:05 07/14/24 05:05 A&P Assessment and plan (1) Severe low back pain: At this point I do not see anything on CT scans or x-rays to give her the severity of pain. Would like to get an MRI to look for any occult fractures in her hip or spine. MRIs are ordered today. Could try Decadron patient is concerned that this would possibly reactive medications I will defer to hospitalist to determine if this medication will interact with any of her medications. Await MRI to see what the actual cause of pain is. Coding Level of Care Code Acute Code for [facility] Fwd Diagnoses Severe low back pain M54.50
[2024-07-14] MEDS: rivaroxaban 10 mg Tablet 20 MG PO (08:06)
[2024-07-14] MEDS: lamoTRIgine 25 mg Tablet 75 MG PO ×2 (08:06→20:57)
[2024-07-14] MEDS: famotidine 20 mg Tablet PO (08:07)
[2024-07-14] MEDS: amlodipine 5 mg Tablet 2.5 MG PO (08:07)
[2024-07-14] MEDS: propafenone 150 mg Tablet 225 MG PO ×3 (08:07→20:57)
[2024-07-14] MEDS: potassium chloride ER 10 mEq Tablet PO (08:07)
[2024-07-14] MEDS: levothyroxine 50 mcg Tablet PO (08:07)
[2024-07-14] MEDS: FUROsemide 20 mg Tablet PO (08:07)
[2024-07-14] MEDS: isosorbide mononitrate ER 30 mg Tablet PO (08:07)
[2024-07-14] MEDS: gabapentin 300 mg Capsule PO ×3 (08:07→20:57)
[2024-07-14] MEDS: aspirin 81 mg EC Tablet PO (08:07)
--- NOTE | 2024-07-14 09:30 | MRR_ITS ---
PROCEDURE INFORMATION: Exam: MR Lumbar Spine Without Contrast Exam date and time: 07/14/2024 4:01 PM Age: 78 years old Clinical indication: Low back pain TECHNIQUE: Imaging protocol: Magnetic resonance imaging of the lumbar spine without contrast. COMPARISON: CT lumbar spine wo con* [id number] 07/13/2024 1:02 PM FINDINGS: Bones/joints: No acute fracture or vertebral height loss. Slight anterolisthesis of L4 over L5. Exaggerated lumbar lordosis. Advanced facet arthropathy L3 L4, L4-L5 and L5-S1 level associated with trace effusions and periarticular edema at L4-L5. Spinal cord: Visualized cord, conus medullaris and cauda equina are unremarkable without compression. L1-L2: Slight annular disc bulge with mild canal stenosis, bilateral subarticular recess and foraminal stenosis L2-L3: Mild annular disc bulge, canal and subarticular stenosis. Minimal foraminal stenosis L3-L4: Mild annular disc bulge and canal stenosis. Moderate bilateral subarticular recess stenosis and mild moderate left stenosis. Mild right foraminal stenosis. L4-L5: Mild annular disc bulge. Moderate to severe canal stenosis contributed to by the degree of facet arthropathy. Crowding of the cauda equina roots. Moderate to high-grade subarticular stenosis and moderate bilateral foraminal stenosis slight abutment of the exiting nerve root without high-grade impingement. L5-S1: Mild annular disc bulge and canal stenosis. Mild bilateral subarticular recess and slight foraminal stenosis. Soft tissues: 0.8 cm exophytic T2 hypointense lesion of the outer aspect of the left kidney favored to be a-dense proteinaceous cyst rather than solid lesion MR/MR lumbar spine wo con* [id number] IMPRESSION: 1. Moderate to advanced multilevel spondylosis especially facet arthropathy at L3-S1. Mild multilevel annular disc bulges. 2. Moderate-severe canal stenosis and crowding of the cauda equina roots at L4-L5 level. Moderate to high-grade subarticular stenosis. Moderate bilateral foraminal stenosis with abutment of the right exiting L4 nerve root.
--- NOTE | 2024-07-14 09:30 | MRR_ITS ---
PROCEDURE INFORMATION: Exam: MR Pelvis Without Contrast Exam date and time: 07/14/2024 4:27 PM Age: 78 years old Clinical indication: Hip pain; Right hip; Additional info: Right hip pain TECHNIQUE: Imaging protocol: Magnetic resonance imaging of the pelvis without contrast. COMPARISON: CT pelvis wo con [id number] 07/13/2024 1:05 PM FINDINGS: Intraperitoneal space: Small amount of pelvic free fluid. Urinary bladder: Bladder is empty. Meza's catheter present Reproductive: Absent uterus. Lymph nodes: No enlarged nodes. Bones/joints: Mild annular disc space narrowing, annular bulge and moderate disc space narrowing at L4-L5. Moderate to advanced facet arthrosis at this level contributes to the canal stenosis. Trace facet effusions and mild periarticular edema moderate to advanced facet arthropathy at L5-S1 level contributing to moderate bilateral foraminal and subarticular stenosis. Trace hip effusions are nonspecific Mild marginal acetabular spurring in both hip joints. No advanced hip arthropathy. No significant joint space narrowing or cartilage loss . No acute fracture. Soft tissues: Partial-thickness tear of the bilateral gluteus medius attachments of the greater trochanters, left greater than right. Mild edema/muscle strain involving the bilateral gluteus minimus and tensor fascia amari, right greater than left. No intramuscular hematoma. MR/MR pelvis wo con* [id number] IMPRESSION: 1. No acute fracture or other aggressive osseous abnormality. 2. Mild intramuscular edema/strain of the right greater than left gluteus minimus and tensor fascia amari muscle bellies. 3. Low-grade partial-thickness tear of the left greater than right gluteus medius insertions . 4. Small amount pelvic free fluid similar to the prior CT, of unclear etiology 5. Meza's catheter in place. 6. Advanced lower lumbar spondylosis with canal and foraminal stenosis.
[2024-07-14] MEDS: HYDROmorphone 1 mg/mL INJ 1 mL 0.5 MG IVP ×2 (13:04→15:26)
--- NOTE | 2024-07-14 18:09 | P.PN_ITS ---
Subjective 2 Subjective: Still having pain in the same location, having difficulty with minimal repositioning. States had severe pain when she tried to point out a location to her friends by moving her arm too far back when she started hurting. Vitals/I&O/Wt Last Vital Signs Temp 98.3 F 07/14/24 11:25 Pulse 62 07/14/24 11:25 Resp 16 07/14/24 11:25 BP 121/70 07/14/24 11:25 Pulse Ox 95 07/14/24 11:25 O2 Del Method Room Air 07/14/24 11:25 O2 Flow Rate 2 07/13/24 17:19 07/14/24 07/14/24 07/14/24 06:59 14:59 22:59 Intake Total 120 / 240 240 / 240 Output Total 500 / 1500 900 / 900 Balance -380 / -1260 -660 / -660 Weight last 48 hrs Weight 128.593 kg Weight 128.99 kg Weight 124.284 kg Physical Exam 2 Narrative: Accompanied by her daughter. Const: COMMON NORMALS: patient oriented x3 and alert GENERAL APPEARANCE: c ooperative NUTRITIONAL APPEARANCE: obese morbidly obese O RIENTATION/CONSCIOUSNESS: Yes awake HENMT: COMMON NORMALS: oropharynx normal Neck/C-Spine: COMMON NORMALS: no JVD Resp: COMMON NORMALS: normal respiratory effort and clear to auscultation bilaterally AUSCULTATION: clear to auscultation bilaterally Cardio: COMMON NORMALS: no JVD, regular rhythm, S1 normal heart sound present, S2 normal heart sound present and No murmurs present (Cardio) RHYTHM: regular rhythm HEART SOUNDS: S1 normal heart sound present and S2 normal heart sound present GI: COMMON NORMALS: Normal to inspection, nondistended, normoactive bowel sounds present, Soft to palpation and non-tender PALPATION: Yes Soft to palpation Extremity: COMMON NORMALS: no joint enlargement and no pedal edema Neuro: COMMON NORMALS: patient oriented x3 and moves all extremities S ENSORIUM/ORIENTATION: Yes alert Skin: COMMON NORMALS: no rashes or lesions noted GENERAL SKIN EXAM: no rashes or lesions noted Urinary Catheter Management: Meza: Cath Placed During This Visit: yes Reason for Continuing Indwelling Catheter: Other Urinary Catheter Date of Insertion: 07/13/24 Data 07/14/24 05:05 07/14/24 05:05 A&P Assessment and plan (1) Severe low back pain: Persistent severe pain with minimal repositioning in the same location. Triggered by active or passive movement. Reviewed vitals, CBC, afebrile, no leukocytosis, no suggestion of acute infection. Reviewed orthopedic note, appreciate consultation. MRIs have been obtained including pelvis and lumbar spine. Discussed with vocational case manager. Continue pain control, reviewed creatinine noted some worsening up to 1.2. Reassess renal function. Monitor for risk of medication toxicity in case of JODY. Hold Lasix. Continue hydrocodone, continue IV Dilaudid for severe breakthrough which she has still required ankle and extra dose to undergo MRI study. Acetaminophen for mild to moderate pain. Continue gabapentin, bupropion. As per discussion with case management rehabilitation offered to patient and family, at current time they declined stating will take patient home as per review of vocational case manager note. Meza catheter in place for now. Intractable pain, severe, unable to get up or get around or even reposition in bed or get on the bedpan even after IV morphine, pain located in the area of right lower back, right side posterior pelvis, right side posterior hip, she cannot describe an exact location. Unable to properly examine due to morbid obesity and severe pain. She is tolerating straight leg raise, but any lateral motion or attempts to bend the knee is in nonstarter. Reviewed vitals, CBC, CMP, UA, lumbar spine CT, pelvis CT, hip/pelvis x-ray, chest x-ray, spine MRI from June 2023 with multilevel DJD, with among others moderate central canal stenosis L4-5, annular bulging L2-3 with slight impingement on right subarticular recess with traversing right L3 nerve root, moderate to advanced facet arthropathy at L4-5 and L5-S1. Reviewed ER note, discussed with ER provider. Orthopedic surgery is being consulted as well for consideration of any additional imaging that may be beneficial with current time and orthopedic opinion. (2) Right hip pain: Pelvis CT reviewed. Appreciate orthopedic assessment. MRI. Plan Creatinine elevation: Creatinine up to 1.2, reassess renal function, possible JODY. Hold Lasix for now. Morbid obesity, Follow-up with primary provider regarding assistance with weight loss options CAD, history of NSTEMI, Continue aspirin, statin, Imdur CHF, history of EF 45%,Continue Lasix Obstructive sleep apnea, unable to tolerate CPAP Carotid artery disease, Continue aspirin, statin Atrial fibrillationContinue propafenone, Xarelto Hypertension, Continue amlodipine, Imdur Other comorbidities Attestations 2 Medical Necessity Statement*: Place in observation for additional assessment and management of severe intractable right lower back/buttock/posterior hip pain despite IV morphine, unable to reposition to even use a bedpan, unable to get up and ambulate, with history of multilevel DJD, spinal canal stenosis. and High MDM includes amount and/or complexity of data reviewed/ordered [ previous or external records, resulted lab(s)/test(s) and other healthcare professional discussion] and described risk of complication, morbidity or mortality of management as documented Diagnoses Severe low back pain M54.50 Right hip pain M25.551
[2024-07-14] MEDS: atorvastatin 40 mg Tablet PO (20:57)
[2024-07-14] MEDS: buPROPion SR (12 HR) 150 mg Tablet PO (20:57)
[2024-07-15] VITALS (8 sets, daily range): BP systolic 105–146; BP diastolic 63–72; PULSE 51–58; RESP 16–18; TEMP 36.5–36.9; O2SAT 90–95
[2024-07-15] MEDS: HYDROcodone-acetaminophen 7.5-325 mg Tablet 1 TAB PO ×3 (00:03→17:38)
[2024-07-15 03:16] LABS: Basophils % 0.1 %; Eosinophils # 0.2 10^3/uL (0.0-0.8); Eosinophils % 2.9 %; Hematocrit 38.1 % (36-47); Lymphocytes # 1.8 10^3/uL (0.8-4.8); Lymphocytes % 24.7 %; Mean Corpuscular Hemoglobin 30.5 pg (27-33); Mean Corpuscular Volume 98.4 fl (85-98); Mean Platelet Volume 9.8 fL (7.4-10.4); Monocytes # 0.9 10^3/uL (0.2-0.9); Monocytes % 11.7 %; Neutrophils # 4.41 10^3/uL (1.8-7.7); Neutrophils % 60.2 %; Nucleated Red Blood Cells % 0 %; Platelet Count 189 10^3/cmm (157-399); Red Blood Count 3.87 10^6/uL (3.85-5.65); White Blood Count 7.33 10^3/uL (3.29-11.43)
[2024-07-15 03:41] LABS: Anion Gap 11.5 (5-19); Blood Urea Nitrogen 18 mg/dL (8-23); Calcium 8.7 mg/dL (8.5-10.5); Carbon Dioxide 32 mmol/L (22-29); Chloride 102 mmol/L (98-107); Creatinine Clr Calc Pharmacy 65.7463; Glucose 103 mg/dL (65-115); Osmolality Calculated 294 mOsm/kg (285-295); Potassium 4.5 mmol/L (3.5-5.1); Sodium 141 mmol/L (136-145)
[2024-07-15] MEDS: glycerin adult supp 1 EACH PR (05:09)
[2024-07-15] MEDS: HYDROmorphone 1 mg/mL INJ 1 mL 0.5 MG IVP (05:15)
[2024-07-15] MEDS: propafenone 150 mg Tablet 225 MG PO ×3 (08:37→21:10)
[2024-07-15] MEDS: famotidine 20 mg Tablet PO (08:37)
[2024-07-15] MEDS: lamoTRIgine 25 mg Tablet 75 MG PO ×2 (08:37→21:12)
[2024-07-15] MEDS: isosorbide mononitrate ER 30 mg Tablet PO (08:37)
[2024-07-15] MEDS: levothyroxine 50 mcg Tablet PO (08:37)
[2024-07-15] MEDS: gabapentin 300 mg Capsule PO ×3 (08:37→21:12)
[2024-07-15] MEDS: potassium chloride ER 10 mEq Tablet PO (08:37)
[2024-07-15] MEDS: aspirin 81 mg EC Tablet PO (08:37)
[2024-07-15] MEDS: rivaroxaban 10 mg Tablet 20 MG PO (08:37)
[2024-07-15] MEDS: lidocaine 5% Patch 1 PATCH TOPICAL (08:39)
--- NOTE | 2024-07-15 12:28 | P.PN_ITS ---
Subjective 2 Subjective: Patient continues to be in pain trying to eat with her plate of food on her chest without being able to sit up. Son is at the bedside. Vitals/I&O/Wt Last Vital Signs Temp 98.1 F 07/15/24 07:34 Pulse 56 L 07/15/24 07:34 Resp 17 07/15/24 07:34 BP 112/64 07/15/24 07:34 Pulse Ox 90 07/15/24 07:34 O2 Del Method Room Air 07/15/24 07:34 O2 Flow Rate 2 07/13/24 17:19 07/14/24 07/15/24 07/15/24 22:59 06:59 14:59 Intake Total 560 / 800 120 / 920 240 / 240 Output Total 150 / 1050 250 / 1300 Balance 410 / -250 -130 / -380 240 / 240 Weight last 48 hrs Weight 281 lb 3.2 oz Weight 283 lb 8 oz Weight 284 lb 6 oz Physical Exam 2 Narrative: Patient continued to have severe pain in her back and rating down her right leg. Urinary Catheter Management: Meza: Cath Placed During This Visit: yes Reason for Continuing Indwelling Catheter: Required Immobilization for Trauma or Surgery or Anesthesia Urinary Catheter Date of Insertion: 07/13/24 Data 07/15/24 02:36 07/15/24 02:36 A&P Assessment and plan (1) Back pain with radiculopathy: Patient MRIs reviewed shows moderate to severe stenosis at L3-4 and severe stenosis at L4-5. The symptoms she is having correlate with the MRI findings. Likely she has a pinched nerve in her back. Discussed with her options of doing outpatient injections however it will likely take 3 months to get into somebody. Discussed with her the option of doing minimally invasive decompression at L3-4 and L4-5. Son was at the bedside they will discuss and determine what they want to do. If they do decide to have surgery we will likely do on Wednesday. Otherwise I can see the patient outpatient and get her set up for injections. Attestations 2 Medical Necessity Statement*: Per primary service Coding Level of Care Code Acute Code for [facility] Fwd Diagnoses Back pain with radiculopathy M54.10
[2024-07-15] MEDS: atorvastatin 40 mg Tablet PO (21:12)
[2024-07-15] MEDS: buPROPion SR (12 HR) 150 mg Tablet PO (21:12)
--- NOTE | 2024-07-15 21:35 | P.PN_ITS ---
Subjective 2 Subjective: Accompanied by her son. Still having episodes of sharp pain with minimal repositioning in the same location. Vitals/I&O/Wt Last Vital Signs Temp 97.7 F 07/15/24 20:00 Pulse 55 L 07/15/24 20:00 Resp 16 07/15/24 20:00 BP 146/72 07/15/24 20:00 Pulse Ox 95 07/15/24 20:00 O2 Del Method Room Air 07/15/24 07:34 O2 Flow Rate 2 07/13/24 17:19 07/15/24 07/15/24 07/15/24 06:59 14:59 22:59 Intake Total 120 / 920 480 / 480 120 / 600 Output Total 250 / 1300 Balance -130 / -380 480 / 480 120 / 600 Weight last 48 hrs Weight 127.55 kg Weight 128.593 kg Physical Exam 2 Narrative: Accompanied by her son. Const: COMMON NORMALS: patient oriented x3 and alert GENERAL APPEARANCE: c ooperative NUTRITIONAL APPEARANCE: obese morbidly obese O RIENTATION/CONSCIOUSNESS: Yes awake HENMT: COMMON NORMALS: oropharynx normal Neck/C-Spine: COMMON NORMALS: no JVD Resp: COMMON NORMALS: normal respiratory effort and clear to auscultation bilaterally AUSCULTATION: clear to auscultation bilaterally Cardio: COMMON NORMALS: no JVD, regular rhythm, S1 normal heart sound present, S2 normal heart sound present and No murmurs present (Cardio) RHYTHM: regular rhythm HEART SOUNDS: S1 normal heart sound present and S2 normal heart sound present GI: COMMON NORMALS: Normal to inspection, nondistended, normoactive bowel sounds present, Soft to palpation and non-tender PALPATION: Yes Soft to palpation Extremity: COMMON NORMALS: no joint enlargement and no pedal edema OTHER: Does tolerate right leg raise if done slowly, but any movement [id number] or bending of the knee is no longer tolerable with pain and right side lower back/pelvis/posterior hip. Neuro: COMMON NORMALS: patient oriented x3 and moves all extremities S ENSORIUM/ORIENTATION: Yes alert Skin: COMMON NORMALS: no rashes or lesions noted GENERAL SKIN EXAM: no rashes or lesions noted Urinary Catheter Management: Meza: Cath Placed During This Visit: yes Reason for Continuing Indwelling Catheter: Other Urinary Catheter Date of Insertion: 07/13/24 Data 07/15/24 02:36 07/15/24 02:36 A&P Assessment and plan (1) Severe low back pain: Reviewed vitals, CBC, BMP, pelvis lumbar spine MRI. Discussed results with her and her son. She is still having pain. Still requiring parenteral opioids. Continue to optimize pain regimen. Renewed IV hydromorphone. Continue hydrocodone for moderate pain. Lidocaine patch applied. Tylenol as needed. She is going to ask about steroid injections with orthopedic surgery. With multiple comorbidities she certainly would be a poor surgical candidate for any major surgery as discussed with her and her son. Orthopedic note reviewed, possibly minimally invasive procedure could be an option, she and family are going to think about it. Alternatively corticosteroid injections and or continued current regimen. Additionally she declines going to penitentiary, discussed with her if going home without adequate support may be at risk of significant complications, also becoming bedbound, risk of pressure injuries, UTI, pneumonia, continued functional decline, further morbidity, premature mortality. She and her family are going to be thinking about how to make it for her to return home safely. Additionally encouraged her to revisit with case management to help set up needed equipment. They have both considered penitentiary extensively and it is not an option for them. She initially mentions cost being a consideration, but discussed with her likely given her condition rehabilitation would be covered, but she states has other reasons as well during the discussion with her and her son. Continue gabapentin, bupropion. As per discussion with case management rehabilitation offered to patient and family, at current time they declined stating will take patient home as per review of outpatient case manager note. Meza catheter in place for now. Intractable pain, severe, unable to get up or get around or even reposition in bed or get on the bedpan even after IV morphine, pain located in the area of right lower back, right side posterior pelvis, right side posterior hip, she cannot describe an exact location. Unable to properly examine due to morbid obesity and severe pain. She is tolerating straight leg raise, but any lateral motion or attempts to bend the knee is in nonstarter. Reviewed vitals, CBC, CMP, UA, lumbar spine CT, pelvis CT, hip/pelvis x-ray, chest x-ray, spine MRI from June 2023 with multilevel DJD, with among others moderate central canal stenosis L4-5, annular bulging L2-3 with slight impingement on right subarticular recess with traversing right L3 nerve root, moderate to advanced facet arthropathy at L4-5 and L5-S1. (2) Right hip pain: Pelvis CT reviewed. Appreciate orthopedic assessment. MRI. Plan Creatinine elevation: Reviewed BUN, creatinine, with improvement creatinine down to 1. Hold Lasix for now. Avoid NSAIDs. Morbid obesity, Follow-up with primary provider regarding assistance with weight loss options CAD, history of NSTEMI, Continue aspirin, statin, Imdur CHF, history of EF 45%,Continue Lasix Obstructive sleep apnea, unable to tolerate CPAP Carotid artery disease, Continue aspirin, statin Atrial fibrillationContinue propafenone, Xarelto Hypertension, Continue amlodipine, Imdur Other comorbidities Attestations 2 Medical Necessity Statement*: Continue observation for additional assessment and management of severe intractable right lower back/buttock/posterior hip pain despite IV morphine, unable to reposition to even use a bedpan, unable to get up and ambulate, with history of multilevel DJD, spinal canal stenosis. and High MDM includes described risk of complication, morbidity or mortality of management as documented Diagnoses Severe low back pain M54.50 Right hip pain M25.551
[2024-07-16] VITALS (9 sets, daily range): BP systolic 116–159; BP diastolic 40–74; PULSE 51–68; RESP 16–19; TEMP 36.4–36.8; O2SAT 91–95
[2024-07-16] MEDS: HYDROcodone-acetaminophen 7.5-325 mg Tablet 1 TAB PO ×5 (00:12→23:12)
[2024-07-16 04:56] LABS: Basophils % 0.3 %; Eosinophils # 0.2 10^3/uL (0.0-0.8); Eosinophils % 3.1 %; Lymphocytes # 2.3 10^3/uL (0.8-4.8); Lymphocytes % 31.9 %; Mean Corpuscular HGB Conc 31.3 g/dL (30-55); Mean Corpuscular Hemoglobin 30.7 pg (27-33); Mean Corpuscular Volume 98.3 fl (85-98); Mean Platelet Volume 9.3 fL (7.4-10.4); Monocytes # 0.8 10^3/uL (0.2-0.9); Monocytes % 10.9 %; Neutrophils # 3.84 10^3/uL (1.8-7.7); Neutrophils % 53.7 %; Nucleated Red Blood Cells % 0 %; Platelet Count 170 10^3/cmm (157-399); Red Blood Count 4.07 10^6/uL (3.85-5.65); Red Cell Distribution Width 13.8 % (12.1-15.1); White Blood Count 7.15 10^3/uL (3.29-11.43)
[2024-07-16 05:16] LABS: Anion Gap 12.2 (5-19); Blood Urea Nitrogen 18 mg/dL (8-23); Carbon Dioxide 30 mmol/L (22-29); Chloride 102 mmol/L (98-107); Glucose 100 mg/dL (65-115); Osmolality Calculated 292 mOsm/kg (285-295); Potassium 4.2 mmol/L (3.5-5.1); Sodium 140 mmol/L (136-145)
[2024-07-16 05:21] LABS: Creatinine Clr Calc Pharmacy 65.4311
[2024-07-16] MEDS: lamoTRIgine 25 mg Tablet 75 MG PO ×2 (10:09→20:47)
[2024-07-16] MEDS: aspirin 81 mg EC Tablet PO (10:10)
[2024-07-16] MEDS: gabapentin 300 mg Capsule PO ×3 (10:10→20:47)
[2024-07-16] MEDS: potassium chloride ER 10 mEq Tablet PO (10:11)
[2024-07-16] MEDS: rivaroxaban 10 mg Tablet 20 MG PO (10:11)
[2024-07-16] MEDS: famotidine 20 mg Tablet PO (10:11)
[2024-07-16] MEDS: levothyroxine 50 mcg Tablet PO (10:12)
[2024-07-16] MEDS: lidocaine 5% Patch 1 PATCH TOPICAL (10:13)
--- NOTE | 2024-07-16 10:50 | PC.NURSE ---
Dr. Huston Notified of patients HR at 58. Dr. Huston ordered one time dose of Propafenone 75 mg. Do not give the 225 mg of Propafenone.
[2024-07-16] MEDS: propafenone 150 mg Tablet 75 MG PO (11:31)
[2024-07-16] MEDS: amlodipine 5 mg Tablet 2.5 MG PO (11:32)
[2024-07-16] MEDS: isosorbide mononitrate ER 30 mg Tablet PO (11:32)
--- NOTE | 2024-07-16 11:52 | PM.PN ---
Subjective Subjective: Patient states he felt a little bit better but is still in severe pain. His difficulty to mobilize her. Vitals/I&O/Wt Last Vital Signs Temp 97.5 F L 07/16/24 07:59 Pulse 51 L 07/16/24 07:59 Resp 17 07/16/24 07:59 BP 116/40 07/16/24 07:59 Pulse Ox 94 07/16/24 07:59 O2 Del Method Room Air 07/16/24 07:59 O2 Flow Rate 2 07/13/24 17:19 07/15/24 07/16/24 07/16/24 22:59 06:59 14:59 Intake Total 120 / 600 240 / 240 Output Total 1150 / 1150 250 / 1400 Balance -1030 / -550 -250 / -800 240 / 240 Weight last 48 hrs Weight 280 lb 6 oz Weight 281 lb 3.2 oz Physical Exam Narrative: Patient was on the toilet when I walked in. Urinary Catheter Management: Meza: Cath Placed During This Visit: yes Reason for Continuing Indwelling Catheter: Required Immobilization for Trauma or Surgery or Anesthesia Urinary Catheter Date of Insertion: 07/13/24 Data 07/16/24 04:27 07/16/24 04:27 A&P Assessment and plan (1) Back pain with radiculopathy: Discussed with the patient and the family about doing possible surgery. Patient is on blood thinners so we will need to come off of these for 5 days. Possibility of doing this while she is in the hospital now and then potentially doing the surgery Wednesday. Will will discuss with block and case maker to see what the best option is for this patient. Attestations Medical Necessity Statement*: Yeah can hear me per primary service Coding Level of Care Code Acute Code for [facility] Fwd Diagnoses Back pain with radiculopathy M54.10
[2024-07-16] MEDS: propafenone 150 mg Tablet PO ×2 (16:58→20:47)
--- NOTE | 2024-07-16 20:19 | P.PN_ITS ---
Subjective 2 Subjective: She is still having pain, but today for the first time able to use the sit to stand with assistance to stand up. Vitals/I&O/Wt Last Vital Signs Temp 98.0 F 07/16/24 12:00 Pulse 61 07/16/24 16:15 Resp 16 07/16/24 12:00 BP 146/71 07/16/24 16:15 Pulse Ox 95 07/16/24 12:00 O2 Del Method Room Air 07/16/24 12:00 O2 Flow Rate 2 07/13/24 17:19 07/16/24 07/16/24 07/16/24 06:59 14:59 22:59 Intake Total 240 / 240 Output Total 250 / 1400 550 / 550 Balance -250 / -800 240 / 240 -550 / -310 Weight last 48 hrs Weight 127.176 kg Weight 127.55 kg Physical Exam 2 Narrative: Accompanied by her son. Const: COMMON NORMALS: patient oriented x3 and alert GENERAL APPEARANCE: c ooperative NUTRITIONAL APPEARANCE: obese morbidly obese O RIENTATION/CONSCIOUSNESS: Yes awake Neuro: COMMON NORMALS: patient oriented x3 SENSORIUM/ORIENTATION: Yes alert Urinary Catheter Management: Meza: Cath Placed During This Visit: yes Reason for Continuing Indwelling Catheter: Required Immobilization for Trauma or Surgery or Anesthesia Urinary Catheter Date of Insertion: 07/13/24 Data 07/16/24 04:27 07/16/24 04:27 A&P Assessment and plan (1) Severe low back pain: She is still having pain but was able to sit to stand for the first time today with assistance. Continue pain regimen. Continue hydrocodone, acetaminophen. IV hydromorphone as needed for breakthrough. Lidocaine patch. Reviewed orthopedic note. Discussed with orthopedic surgery, discussed with patient and family together as well. They are considering several options including consideration of going to a [facility] facility although are definitely against long-term placement. Discussed that the goal would be for rehabilitation and then return home if possible. Per discussion with her daughters regarding available support, alternatively her daughters are considering taking her home. But for this they would need additional equipment with at least sit to stand available. Alternatively considering steroid injections, but these may not be available for up to 3 months or more. They will be further discussing with case management when they are back tomorrow. She is additionally pending evaluation by PT. Reviewed vitals, CBC, BMP. Continue gabapentin, bupropion. As per discussion with case management rehabilitation offered to patient and family, at current time they declined stating will take patient home as per review of casework specialist note. Meza catheter in place for now. Intractable pain, severe, unable to get up or get around or even reposition in bed or get on the bedpan even after IV morphine, pain located in the area of right lower back, right side posterior pelvis, right side posterior hip, she cannot describe an exact location. Unable to properly examine due to morbid obesity and severe pain. She is tolerating straight leg raise, but any lateral motion or attempts to bend the knee is in nonstarter. Reviewed vitals, CBC, CMP, UA, lumbar spine CT, pelvis CT, hip/pelvis x-ray, chest x-ray, spine MRI from June 2023 with multilevel DJD, with among others moderate central canal stenosis L4-5, annular bulging L2-3 with slight impingement on right subarticular recess with traversing right L3 nerve root, moderate to advanced facet arthropathy at L4-5 and L5-S1. (2) Bradycardia: Bradycardia today down to low 50s. She normally follows with Dr. Cadena in office. On propafenone. We reduced the morning dose down to 75 mg. Still bradycardic in the afternoon, briefly discussed with accelerator technician, propafenone can contribute to bradycardia. We will decrease down to 250 mg for now for 3 doses, however, there is risk of converting into A-fib, resume usual dosing after 3 doses if possible. Monitor on telemetry. Risk of further bradycardia with propafenone, tachycardia. (3) Right hip pain: Pelvis CT reviewed. Appreciate orthopedic assessment. MRI. Plan Creatinine elevation: Reviewed BUN, creatinine, Cr remaining down to 1. Hold Lasix for now. Avoid NSAIDs. Morbid obesity, Follow-up with primary provider regarding assistance with weight loss options CAD, history of NSTEMI, Continue aspirin, statin, Imdur CHF, history of EF 45%,Continue Lasix Obstructive sleep apnea, unable to tolerate CPAP Carotid artery disease, Continue aspirin, statin Atrial fibrillationContinue propafenone, Xarelto Hypertension, Continue amlodipine, Imdur Other comorbidities Attestations 2 Medical Necessity Statement*: Continue observation for additional assessment and management of severe intractable right lower back/buttock/posterior hip pain despite IV morphine, unable to reposition to even use a bedpan, unable to get up and ambulate, with history of multilevel DJD, spinal canal stenosis. and High MDM includes amount and/or complexity of data reviewed/ordered [ previous or external records, resulted lab(s)/test(s), independent historian and other healthcare professional discussion] and described risk of complication, morbidity or mortality of management as documented Diagnoses Severe low back pain M54.50 Bradycardia R00.1 Right hip pain M25.551
[2024-07-16] MEDS: atorvastatin 40 mg Tablet PO (20:47)
[2024-07-16] MEDS: buPROPion SR (12 HR) 150 mg Tablet PO (20:48)
[2024-07-17] VITALS (8 sets, daily range): BP systolic 129–168; BP diastolic 52–84; PULSE 56–70; RESP 16–18; TEMP 36.6–37; O2SAT 91–98
--- NOTE | 2024-07-17 02:17 | PC.NURSE ---
Received report from LAMBERTO Garcia.
[2024-07-17] MEDS: HYDROcodone-acetaminophen 7.5-325 mg Tablet 1 TAB PO ×4 (05:06→22:47)
[2024-07-17 05:21] LABS: Basophils % 0.3 %; Eosinophils # 0.2 10^3/uL (0.0-0.8); Eosinophils % 2.6 %; Hematocrit 38.4 % (36-47); Lymphocytes % 27.2 %; Mean Corpuscular HGB Conc 31.3 g/dL (30-55); Mean Corpuscular Hemoglobin 30.2 pg (27-33); Mean Corpuscular Volume 96.5 fl (85-98); Mean Platelet Volume 9.4 fL (7.4-10.4); Monocytes # 0.8 10^3/uL (0.2-0.9); Monocytes % 10.7 %; Neutrophils # 4.22 10^3/uL (1.8-7.7); Neutrophils % 58.9 %; Nucleated Red Blood Cells % 0 %; Platelet Count 198 10^3/cmm (157-399); Red Blood Count 3.98 10^6/uL (3.85-5.65); Red Cell Distribution Width 13.7 % (12.1-15.1); White Blood Count 7.17 10^3/uL (3.29-11.43)
[2024-07-17 05:38] LABS: Anion Gap 11.4 (5-19); Blood Urea Nitrogen 21 mg/dL (8-23); Calcium 8.6 mg/dL (8.5-10.5); Carbon Dioxide 30 mmol/L (22-29); Chloride 104 mmol/L (98-107); Creatinine Clr Calc Pharmacy 71.6045; Glucose 108 mg/dL (65-115); Osmolality Calculated 296 mOsm/kg (285-295); Potassium 4.4 mmol/L (3.5-5.1); Sodium 141 mmol/L (136-145)
[2024-07-17] MEDS: lamoTRIgine 25 mg Tablet 75 MG PO ×2 (08:53→20:46)
[2024-07-17] MEDS: aspirin 81 mg EC Tablet PO (08:53)
[2024-07-17] MEDS: potassium chloride ER 10 mEq Tablet PO (08:53)
[2024-07-17] MEDS: levothyroxine 50 mcg Tablet PO (08:53)
[2024-07-17] MEDS: famotidine 20 mg Tablet PO (08:53)
[2024-07-17] MEDS: gabapentin 300 mg Capsule PO ×3 (08:53→20:46)
[2024-07-17] MEDS: lidocaine 5% Patch 1 PATCH TOPICAL ×2 (08:54→20:47)
[2024-07-17] MEDS: polyethylene glycol 3350 Pkt 17 gm PO (08:54)
[2024-07-17] MEDS: propafenone 150 mg Tablet PO ×3 (09:01→20:45)
[2024-07-17] MEDS: atorvastatin 40 mg Tablet PO (20:45)
[2024-07-17] MEDS: buPROPion SR (12 HR) 150 mg Tablet PO (20:45)
--- NOTE | 2024-07-17 21:05 | P.PN_ITS ---
Subjective 2 Subjective: She is reporting some additional progress. For the first time she was able to make about 5 steps with physical therapy but required assistance getting back to the bed due to pain. Vitals/I&O/Wt Last Vital Signs Temp 98.5 F 07/17/24 20:00 Pulse 60 07/17/24 20:00 Resp 17 07/17/24 20:00 BP 129/54 07/17/24 20:00 Pulse Ox 93 07/17/24 20:00 O2 Del Method Room Air 07/17/24 20:00 O2 Flow Rate 2 07/13/24 17:19 07/17/24 07/17/24 07/17/24 06:59 14:59 22:59 Intake Total 360 / 360 Output Total 150 / 700 700 / 700 Balance -150 / -460 360 / 360 -700 / -340 Weight last 48 hrs Weight 124.284 kg Weight 127.176 kg Physical Exam 2 Narrative: Accompanied by her son. Const: COMMON NORMALS: patient oriented x3 and alert GENERAL APPEARANCE: c ooperative NUTRITIONAL APPEARANCE: obese morbidly obese O RIENTATION/CONSCIOUSNESS: Yes awake HENMT: COMMON NORMALS: oropharynx normal Neck/C-Spine: COMMON NORMALS: no JVD Resp: COMMON NORMALS: normal respiratory effort and clear to auscultation bilaterally AUSCULTATION: clear to auscultation bilaterally Cardio: COMMON NORMALS: no JVD, regular rhythm, S1 normal heart sound present, S2 normal heart sound present and No murmurs present (Cardio) RHYTHM: regular rhythm HEART SOUNDS: S1 normal heart sound present and S2 normal heart sound present GI: COMMON NORMALS: Normal to inspection, nondistended, normoactive bowel sounds present, Soft to palpation and non-tender PALPATION: Yes Soft to palpation Extremity: COMMON NORMALS: no joint enlargement and no pedal edema OTHER: Does tolerate right leg raise if done slowly, but any movement [id number] or bending of the knee is no longer tolerable with pain and right side lower back/pelvis/posterior hip. Neuro: COMMON NORMALS: patient oriented x3 and moves all extremities S ENSORIUM/ORIENTATION: Yes alert Skin: COMMON NORMALS: no rashes or lesions noted GENERAL SKIN EXAM: no rashes or lesions noted Urinary Catheter Management: Meza: Cath Placed During This Visit: yes Reason for Continuing Indwelling Catheter: Required Immobilization for Trauma or Surgery or Anesthesia Urinary Catheter Date of Insertion: 07/13/24 Data 07/17/24 04:39 07/17/24 04:39 A&P Assessment and plan (1) Severe low back pain: Some progress today, was able to get up and make 5 steps away from the bed but then had to get right back and required assistance on the way back. Reviewed vitals, CBC, BMP. Afebrile, no leukocytosis. Renal function is okay. Continues to require hydrocodone, so far no further hydromorphone. Continue lidocaine patch, Tylenol. Soma. Will renew hydrocodone. Will not renew hydromorphone. Renew Soma. Further discussion with her together with case management and her daughters/caregivers with regards to options including discharge to senior living facility with possible return for surgical intervention versus return home with equipment and additional assistance with possible return for intervention. Gretchenrelto has been placed on hold in anticipation of possible minimally invasive surgical intervention. Discussed with her risks, potential complications in light of multiple medical comorbidities including history of CAD, coronary vasospasm, atrial fibrillation, hypertension, carotid artery disease, morbid obesity, obstructive sleep apnea and other. She is also working on [employer]. Reviewed orthopedic note. They are considering several options including consideration of going to a senior living facility although are definitely against long-term placement. Discussed that the goal would be for rehabilitation and then return home if possible. Per discussion with her daughters regarding available support, alternatively her daughters are considering taking her home. But for this they would need additional equipment with at least sit to stand available. Alternatively considering steroid injections, but these may not be available for up to 3 months or more. They will be further discussing with case management when they are back tomorrow. Continue work with and reassessment by PT. Continue gabapentin, bupropion. Meza catheter in place for now. Intractable pain, severe, unable to get up or get around or even reposition in bed or get on the bedpan even after IV morphine, pain located in the area of right lower back, right side posterior pelvis, right side posterior hip, she cannot describe an exact location. Unable to properly examine due to morbid obesity and severe pain. She is tolerating straight leg raise, but any lateral motion or attempts to bend the knee is in nonstarter. Reviewed vitals, CBC, CMP, UA, lumbar spine CT, pelvis CT, hip/pelvis x-ray, chest x-ray, spine MRI from June 2023 with multilevel DJD, with among others moderate central canal stenosis L4-5, annular bulging L2-3 with slight impingement on right subarticular recess with traversing right L3 nerve root, moderate to advanced facet arthropathy at L4-5 and L5-S1. (2) Bradycardia: Improved. Per cardiology discussion, will attempt to resume her usual dose of propafenone 225 mg.Monitor for risk of recurrent bradycardia. Bradycardia today down to low 50s. She normally follows with Dr. Cadena in office. On propafenone. (3) Right hip pain: Pelvis CT reviewed. Appreciate orthopedic assessment. MRI. Plan Creatinine elevation: Reviewed BUN, creatinine, Cr remaining down to 1. Hold Lasix for now. Avoid NSAIDs. Morbid obesity, Follow-up with primary provider regarding assistance with weight loss options CAD, history of NSTEMI, Continue aspirin, statin, Imdur CHF, history of EF 45%,Continue Lasix Obstructive sleep apnea, unable to tolerate CPAP Carotid artery disease, Continue aspirin, statin Atrial fibrillationContinue propafenone, Xarelto Hypertension, Continue amlodipine, Imdur Other comorbidities Attestations 2 Medical Necessity Statement*: Continue observation for additional assessment and management of severe intractable right lower back/buttock/posterior hip pain despite IV morphine, unable to reposition to even use a bedpan, unable to get up and ambulate, with history of multilevel DJD, spinal canal stenosis, discharge planning and arrangements. and High MDM includes amount and/or complexity of data reviewed/ordered [ previous or external records, resulted lab(s)/test(s), ordered lab(s)/test(s), independent historian and other healthcare professional discussion] and described risk of complication, morbidity or mortality of management as documented Diagnoses Severe low back pain M54.50 Bradycardia R00.1 Right hip pain M25.551
[2024-07-18] VITALS: BP 145/59; PULSE 61; RESP 17; TEMP 36.5; O2SAT 93
[2024-07-18 04:00] VITALS: BP 162/76; PULSE 60; RESP 18; TEMP 36.6; O2SAT 93
--- NOTE | 2024-07-18 05:02 | PC.NURSE ---
Addendum entered by DEMETRIO Boyd 07/18/24 05:11: Pt got up to bedside commode and is much more alert and oriented. She is now requesting her pain medication be given according to schedule. Original Note: Woke patient to loading unit operator powder charging her her scheduled hydrocodone. Shook the patients shoulder and attempted to wake her twice before she woke on the third attempt. Patient rated her pain at a 0 on a 1-10 scale. I discussed holding off on the current dose because of lethargy and lack of pain, patient agreed.
[2024-07-18 05:50] VITALS: PULSE 65
[2024-07-18 05:56] LABS: Basophils % 0.5 %; Eosinophils # 0.3 10^3/uL (0.0-0.8); Eosinophils % 4.2 %; Hematocrit 42.2 % (36-47); Lymphocytes # 1.8 10^3/uL (0.8-4.8); Lymphocytes % 28.3 %; Mean Corpuscular Hemoglobin 30.3 pg (27-33); Mean Corpuscular Volume 97.7 fl (85-98); Mean Platelet Volume 9.1 fL (7.4-10.4); Monocytes # 0.6 10^3/uL (0.2-0.9); Neutrophils # 3.69 10^3/uL (1.8-7.7); Neutrophils % 57.5 %; Nucleated Red Blood Cells % 0 %; Platelet Count 246 10^3/cmm (157-399); Red Blood Count 4.32 10^6/uL (3.85-5.65); Red Cell Distribution Width 13.7 % (12.1-15.1); White Blood Count 6.42 10^3/uL (3.29-11.43)
[2024-07-18] MEDS: HYDROcodone-acetaminophen 7.5-325 mg Tablet 1 TAB PO ×2 (06:14→11:15)
[2024-07-18 06:20] LABS: Anion Gap 14.6 (5-19); Blood Urea Nitrogen 19 mg/dL (8-23); Carbon Dioxide 29 mmol/L (22-29); Chloride 105 mmol/L (98-107); Creatinine Clr Calc Pharmacy 73.0041; Glucose 110 mg/dL (65-115); Osmolality Calculated 301 mOsm/kg (285-295); Potassium 4.6 mmol/L (3.5-5.1); Sodium 144 mmol/L (136-145)
[2024-07-18 07:16] VITALS: BP 132/64; PULSE 60; RESP 16; TEMP 36.8; O2SAT 97
--- NOTE | 2024-07-18 08:07 | PM.PN ---
Subjective Subjective: Patient is feeling much better today than she was on Wednesday. Discussed with her options of going home and seeing her outpatient and possibly avoiding surgery if she continues to improve. Vitals/I&O/Wt Last Vital Signs Temp 98.2 F 07/18/24 07:16 Pulse 60 07/18/24 07:16 Resp 16 07/18/24 07:16 BP 132/64 07/18/24 07:16 Pulse Ox 97 07/18/24 07:16 O2 Del Method Room Air 07/18/24 07:16 O2 Flow Rate 2 07/13/24 17:19 07/17/24 07/18/24 07/18/24 22:59 06:59 14:59 Output Total 950 / 950 250 / 1200 Balance -950 / -590 -250 / -840 Weight last 48 hrs Weight 283 lb 3 oz Weight 274 lb Physical Exam Narrative: Resting bed comfortably Urinary Catheter Management: Meza: Cath Placed During This Visit: yes Reason for Continuing Indwelling Catheter: Other Urinary Catheter Date of Insertion: 07/13/24 Data 07/18/24 05:39 07/18/24 05:39 A&P Assessment and plan (1) Back pain with radiculopathy: If patient continues to improve I do not feel that surgery would be indicated at this time. At this point I feel comfortable patient going home and following up outpatient. However she needs to discuss this with her daughters. Attestations Medical Necessity Statement*: Per primary service Coding Level of Care Code Acute Code for [facility] Fwd Diagnoses Back pain with radiculopathy M54.10
[2024-07-18] MEDS: gabapentin 300 mg Capsule PO ×2 (08:44→14:36)
[2024-07-18] MEDS: propafenone 150 mg Tablet 225 MG PO ×2 (08:44→14:36)
[2024-07-18] MEDS: isosorbide mononitrate ER 30 mg Tablet PO (08:45)
[2024-07-18] MEDS: levothyroxine 50 mcg Tablet PO (08:45)
[2024-07-18] MEDS: famotidine 20 mg Tablet PO (08:45)
[2024-07-18] MEDS: aspirin 81 mg EC Tablet PO (08:45)
[2024-07-18] MEDS: amlodipine 5 mg Tablet 2.5 MG PO (08:45)
[2024-07-18] MEDS: potassium chloride ER 10 mEq Tablet PO (08:45)
[2024-07-18] MEDS: polyethylene glycol 3350 Pkt 17 gm PO (08:46)
[2024-07-18] MEDS: lidocaine 5% Patch 1 PATCH TOPICAL (08:46)
[2024-07-18] MEDS: lamoTRIgine 25 mg Tablet 75 MG PO (08:50)
[2024-07-18] MEDS: fluconazole 100 mg Tablet 150 MG PO (09:31)
[2024-07-18 11:55] VITALS: BP 152/58; PULSE 55; RESP 16; TEMP 36.6; O2SAT 95
--- NOTE | 2024-07-18 14:02 | P.DS_ITS ---
Discharge Providers Date of Admission: 07/13/24 16:40 Date of Discharge: July 18, 2024 Attending Provider at Admission: Robert Huston Attending Provider at Discharge: Shahzad Novoa MD Primary Care Provider: CRISTIAN Willson Diagnoses at Discharge Discharge Diagnosis (1) Back pain with radiculopathy: Status: Acute Reason for Visit Reason for Visit: right hip pain Hospital Course Hospital Course Patient is a 78-year-old white female who presented on the with complaints of back pain, and hip pain. She had had ongoing orthopedic problems, with concern for her spine causing most of her discomfort. Patient was placed on Decadron, and treated with pain medication. During the hospital stay she had some improvement in her discomfort, but it was still severe. Some renal dysfunction occurred, requiring adjustment of medications and this demonstrated improvement. By July 17 she was able to take a few steps, but still had severe pain with significant exertion. It was thought she could discharge to [facility], and have a planned readmission for potential surgery. Her anticoagulation will be held. Discussed with patient she is probably at least in moderate risk category for surgery secondary to her multiple comorbidities. She did have an angiogram earlier this year, which demonstrated no significant flow-limiting stenosis. She will be discharged to a nursing facility for continued pain control, rehabilitation pending surgery. She and her daughter were able to ask questions and agreed with the plan. Physical Exam Narrative: General Exam no distress, although complains of back pain Neck is supple Cardiovascular regular in rhythm Lungs clear Abdomen soft Extremities no cyanosis clubbing or edema. Urinary Catheter Management: Meza: Cath Placed During This Visit: yes Reason for Continuing Indwelling Catheter: Other Urinary Catheter Date of Insertion: 07/13/24 Discharge Data Studies Completed and Pending Completed Studies During Hospitalization Category Date Time Status CT lumbar spine wo con* [id number] Stat Cat Scan 07/13/24 11:[address] pelvis wo con [id number] Stat Cat Scan 07/13/24 12:54 Completed XR chest 1V portable [id number] Stat Exams 07/13/24 14:49 Completed XR hip RT 2-3V wo/w pel* [id number] Stat Exams 07/13/24 11:06 Completed MR lumbar spine wo con* [id number] Routine MRI 07/14/24 09:30 Completed MR pelvis wo con* [id number] Routine MRI 07/14/24 09:30 Completed Pending at discharge Category Date Time Status Basic Metabolic Panel AM LABS Lab 07/19/24 04:00 Ordered Complete Blood Count w/Auto AM LABS Lab 07/19/24 04:00 Ordered Radiology Impressions Hip/Pelvis X-Ray 07/13/24 11:06 IMPRESSION: 1. No acute findings. 2. Additional details as above. Lumbar Spine CT 07/13/24 11:44 IMPRESSION: 1. Lumbar spondylosis is detailed above. 2. Possible left paracentral disc herniation at the L4-L5 level, and possible right paracentral disc herniation at the L5-S1 level. The appearance of these, however, may be due to artifact. 3. No other acute lumbar spine findings. Additional lumbar spine findings as above. 4. Diffusely dilated pancreatic duct. Consider MRCP and/or ERCP for this. 5. 1 cm soft tissue mass versus hyperdense cyst lateral left kidney. Recommend contrast-enhanced MRI of this. 6. Minimal nodularity of the adrenal glands. COMMENTS: Consistent with the [employer]'s Incidental Findings Committee white paper (J Am Alexandre Radiol 2018): Any incidental renal lesion less than 1 cm or classified as too small to characterize, or any incidental cystic renal lesion characterized as simple-appearing, is likely benign. No follow-up imaging is recommended for these lesions per consensus recommendations based on imaging criteria. Pelvis CT 07/13/24 12:54 IMPRESSION: 1. No acute bone or joint findings. 2. Additional details as above. Chest X-Ray 07/13/24 14:49 IMPRESSION: No acute disease. Lumbar Spine MRI 07/14/24 09:30 IMPRESSION: 1. Moderate to advanced multilevel spondylosis especially facet arthropathy at L3-S1. Mild multilevel annular disc bulges. 2. Moderate-severe canal stenosis and crowding of the cauda equina roots at L4-L5 level. Moderate to high-grade subarticular stenosis. Moderate bilateral foraminal stenosis with abutment of the right exiting L4 nerve root. Pelvis MRI 07/14/24 09:30 IMPRESSION: 1. No acute fracture or other aggressive osseous abnormality. 2. Mild intramuscular edema/strain of the right greater than left gluteus minimus and tensor fascia amari muscle bellies. 3. Low-grade partial-thickness tear of the left greater than right gluteus medius insertions . 4. Small amount pelvic free fluid similar to the prior CT, of unclear etiology 5. Meza's catheter in place. 6. Advanced lower lumbar spondylosis with canal and foraminal stenosis. Laboratory Results WBC 6.42 10^3/uL (3.29-11.43) 07/18/24 05:39 RBC 4.32 10^6/uL (3.85-5.65) 07/18/24 05:39 Hgb 13.10 g/dL (11.27-16.99) 07/18/24 05:39 Hct 42.2 % (36-47) 07/18/24 05:39 MCV 97.7 fl (85-98) 07/18/24 05:39 MCH 30.3 pg (27-33) 07/18/24 05:39 MCHC 31.0 g/dL (30-55) 07/18/24 05:39 RDW 13.7 % (12.1-15.1) 07/18/24 05:39 Plt Count 246 10^3/cmm (157-399) 07/18/24 05:39 MPV 9.1 fL (7.4-10.4) 07/18/24 05:39 Neut % (Auto) 57.5 % 07/18/24 05:39 Lymph % (Auto) 28.3 % 07/18/24 05:39 [place] % (Auto) 9.0 % 07/18/24 05:39 Eos % (Auto) 4.2 % 07/18/24 05:39 Baso % (Auto) 0.5 % 07/18/24 05:39 Neut # (Auto) 3.69 10^3/uL (1.8-7.7) 07/18/24 05:39 Lymph # (Auto) 1.8 10^3/uL (0.8-4.8) 07/18/24 05:39 [place] # (Auto) 0.6 10^3/uL (0.2-0.9) 07/18/24 05:39 Eos # (Auto) 0.3 10^3/uL (0.0-0.8) 07/18/24 05:39 Baso # (Auto) 0.0 10^3/uL (0.0-0.1) 07/18/24 05:39 Nucleated RBC % (auto) 0 % 07/18/24 05:39 Nucleated RBCs # 0.0 /100WBC 07/18/24 05:39 Sodium 144 mmol/L (136-145) 07/18/24 05:39 Potassium 4.6 mmol/L (3.5-5.1) 07/18/24 05:39 Chloride 105 mmol/L (98-107) 07/18/24 05:39 Carbon Dioxide 29 mmol/L (22-29) 07/18/24 05:39 Anion Gap 14.6 (5-19) 07/18/24 05:39 BUN 19 mg/dL (8-23) 07/18/24 05:39 Creatinine 0.9 mg/dL (0.5-0.9) 07/18/24 05:39 GFR Calculation Not Reportable 07/18/24 05:39 Glucose 110 mg/dL (65-115) 07/18/24 05:39 Calculated Osmolality 301 mOsm/kg (285-295) H 07/18/24 05:39 Calcium 9.0 mg/dL (8.5-10.5) 07/18/24 05:39 Magnesium 2.3 mg/dL (1.7-2.3) 07/14/24 05:05 Total Bilirubin 0.2 mg/dL (0.15-1.2) 07/13/24 12:00 AST 15 U/L (0-32) 07/13/24 12:00 ALT 10 U/L (0-33) 07/13/24 12:00 Alkaline Phosphatase 64 U/L (35-105) 07/13/24 12:00 Total Protein 6.7 g/dL (6.6-8.7) 07/13/24 12:00 Albumin 3.4 g/dL (3.5-5.2) L 07/13/24 12:00 Globulin 3.3 g/dL (1.3-4.6) 07/13/24 12:00 Lipase 16 U/L (13-60) 07/13/24 12:00 Urine Color Yellow (Yellow) 07/13/24 11:37 Urine Appearance Cloudy (CLEAR) A 07/13/24 11:37 Urine pH 5.5 (5-7) 07/13/24 11:37 Ur Specific [place] 1.011 (1.005-1.030) 07/13/24 11:37 Urine Protein Negative (Negative) 07/13/24 11:37 Urine Glucose (UA) Negative (Normal) 07/13/24 11:37 Urine Ketones Negative (Negative) 07/13/24 11:37 Urine Blood Negative (Negative) 07/13/24 11:37 Urine Nitrate Negative (Negative) 07/13/24 11:37 Urine Bilirubin Negative (Negative) 07/13/24 11:37 Urine Urobilinogen 0.2 mg/dL (Negative) 07/13/24 11:37 Ur Leukocyte Esterase Negative (Negative) 07/13/24 11:37 Urine RBC 0-2 /hpf (0-2) 07/13/24 11:37 Urine WBC 0-5 /hpf (0-5) 07/13/24 11:37 Ur Squamous Epith Cells 0-5 /hpf (0-5) 07/13/24 11:37 Amorphous Sediment Not Reportable 07/13/24 11:37 Urine Bacteria None seen /hpf (NONE) 07/13/24 11:37 Hyaline Casts 1.21 /lpf 07/13/24 11:37 Vitals Last Vital Signs Temp 97.9 F 07/18/24 11:55 Pulse 55 L 07/18/24 11:55 Resp 16 07/18/24 11:55 BP 152/58 07/18/24 11:55 Pulse Ox 95 07/18/24 11:55 O2 Del Method Room Air 07/18/24 11:55 O2 Flow Rate 2 07/13/24 17:19 Discharge Plan Discharge Patient Disposition: Xfer SNF Condition: Stable Prescriptions: New carisoprodol 350 mg Tablet 350 mg PO Q8H PRN (Reason: Pain) Qty: 20 0RF polyethylene glycol 3350 17 gram Powder In Packet 17 g PO BID Qty: 60 0RF Continued bupropion HCl 150 mg tablet sustained-release 12 hr 150 mg PO DAILY@2100 cetirizine [Zyrtec] 10 mg Tablet 10 mg PO DAILY@0900 lamotrigine 25 mg tablet 75 mg PO BID@ propafenone 225 mg tablet 225 mg PO TID hydrocodone-acetaminophen 7.5-325 mg tablet 1 tab PO Q6H gabapentin 300 mg capsule 300 mg PO TID famotidine 20 mg tablet 20 mg PO DAILY levothyroxine 50 mcg tablet 50 mcg PO DAILY aspirin [Adult Low Dose Aspirin] 81 mg tablet,delayed release (DR/EC) 81 mg PO DAILY Qty: 30 0RF rosuvastatin 10 mg tablet 10 mg PO BEDTIME potassium chloride 10 mEq capsule, extended release 10 meq PO DAILY isosorbide mononitrate 30 mg tablet extended release 24 hr 30 mg PO DAILY amlodipine 2.5 mg tablet 2.5 mg PO DAILY furosemide 20 mg tablet 20 mg PO DAILY Discontinued rivaroxaban 20 mg tablet 20 mg PO DAILY Qty: 90 3RF Rx Instructions: must administer with a meal/food Discharge Orders: Discharge Order (Routine); Ordered 07/18/24 Ordered By: Shahzad Novoa Referrals: [facility] [Outside] Socorro Schrader FNP [Primary Care Provider] - Discharge Diet: Cardiac Discharge Activity: Increase activity as tolerated Patient Instructions: Opioid Safety Activity Restrictions/Additional Instructions: Please coordinate planned readmission No anticoagulant, Xarelto prior to planned surgery Take all medicine as prescribed Discharge Attestations Time Spent in Discharge Care*: greater than 30 min Quality Metrics Clinical Quality Measures [ No reported AMI, CVA or VTE this stay] Coding Level of Care Code 34709 Total time (in minutes) for Discharge: 45 Diagnoses Back pain with radiculopathy M54.10
[2024-07-18 15:10] VITALS: BP 152/58; PULSE 55; RESP 16; TEMP 36.6; O2SAT 95
== END 2024-07-18 15:00 | disposition skilled nursing facility (03) ==
LOC: ER 11:22 → MEDSURG 16:41
PROVIDERS: Admitting Provider Internal Medicine; Emergency Provider Family Medicine; PCP Nurse Practitioner Family; Visit Provider Internal Medicine
DX: M54.16 Radiculopathy, lumbar region (principal); R00.1 Bradycardia, unspecified; M25.551 Pain in right hip; E66.01 Morbid (severe) obesity due to excess calories; Z68.42 Body mass index [BMI] 45.0-49.9, adult; I25.10 Atherosclerotic heart disease of native coronary artery without angina pectoris; I25.2 Old myocardial infarction; I11.0 Hypertensive heart disease with heart failure; I50.9 Heart failure, unspecified; G47.33 Obstructive sleep apnea (adult) (pediatric); I48.91 Unspecified atrial fibrillation; M79.7 Fibromyalgia
CPT/HCPCS: 36415; 51702; 71045; 72131; 72148; 72192; 72195; 73502; 80048; 80053; 81001; 83690; 83735; 85025; 96374; 96375; 96376; 97110; 97116; 97161; 97530; 99285; G0378; J1170; J2270; J2405

== ENCOUNTER → 2024-07-25 14:19 | Outpatient (BNVA) | payer MEDICARE, MEDICAID, SELFPAY | PROVIDERS: PCP Nurse Practitioner Family; Visit Provider Orthopaedic Surgery | DX: M54.10 Radiculopathy, site unspecified (principal); M54.50 Low back pain, unspecified | CPT/HCPCS: 72110; 99214 ==

== ENCOUNTER 2025-01-04 12:11 | Emergency (ER) | payer MEDICARE, MEDICAID, SELFPAY ==
[2025-01-04 12:24] VITALS: BP 135/58; PULSE 60; RESP 18; TEMP 36.3; O2SAT 95; BMI 44.4
[2025-01-04 12:33] LABS: Glucose Point of Care 123 mg/dL (70-110)
--- NOTE | 2025-01-04 12:40 | CT_ITS ---
WS: [id number] CT HEAD NONCONTRAST HISTORY: AMS TECHNIQUE: Contiguous axial imaging performed through the brain. Bone and soft tissue windows. Sagittal and coronal reformats reviewed. All CT scans at [facility] use at least one of these dose optimization techniques: automated exposure control; mA and/or kV adjustment per patient size (includes targeted exams where dose is matched to clinical indication); or iterative reconstruction. DLP: 1083.49 mGy.cm COMPARISON: 02/17/2018 No acute intracranial hemorrhage, midline shift or mass effect. Mild atrophy and small vessel disease. Prior lacunar infarct LEFT basal ganglia. No new infarct. Small lipoma near the interpeduncular cistern. Ventricles: Normal size with no hydrocephalus. Stable Chiari I malformation. Paranasal sinuses: As visualized are clear. Mastoid air cells: Well pneumatized. Calvarium and scalp: Skull is intact with no soft tissue edema or swelling. CT/CT head wo con* [id number] IMPRESSION: 1. No acute intracranial hemorrhage or edema. 2. Remote lacunar infarct LEFT basal ganglia. 3. Stable Chiari I malformation.
--- NOTE | 2025-01-04 12:40 | XR_ITS ---
WS: [id number] XR chest 1V portable [id number] REASON FOR EXAM: AMS FINDINGS: Chest is unchanged compared to 07/13/2024. Mild tortuosity and ectasia of the thoracic aorta. Cardiomegaly. Bilateral calcified granulomatous disease. No acute pulmonary parenchymal or pleural abnormality. Moderate degenerative spondylosis in the mid and lower thoracic spine. XR/XR chest 1V portable [id number] IMPRESSION: Cardiomegaly. Stable chest without acute abnormality.
--- NOTE | 2025-01-04 12:47 | W.ED.AMS ---
HPI - Altered Mental Status General: Chief Complaint: Altered Mental Status Stated Complaint: ams Time Seen by Provider: 01/04/25 12:39 Source: patient and family (daughter) Mode of arrival: wheelchair Limitations: no limitations History of Present Illness: 79-year-old female presents to the ER along with daughter complaining of altered mental status. Patient and daughter state for the past week she has been having episodes of confusion, dizziness, feels weak, and forgetfulness-some episodes of slurred speech and word aphasia. She states she started a new antibiotic of Dicloxacillin for an ingrown toenail on left foot. Patient states she recently tends to forget what she is saying and unable to remember her train of thought. Patient denies chest pain, palpitations, fever, abdominal pain, headache, vision changes, numbness/tingling. Upon arrival to ED, patient pleasant and engaging uneventfully in conversation. I do not appreciate any word slurring or acute neurologic deficits. She is alert and oriented x 3. MD complaint: confusion and weakness Onset (ago): day(s) Timing confirmed by: family member Severity: moderate Consistency of symptoms: Waxing and Waning Associated symptoms: Reports no associated symptoms Related Data Home Medications ?Medication ?Instructions ?Recorded ?Confirmed bupropion HCl 150 mg tablet,12 hr 150 mg PO DAILY@2100 01/14/20 01/04/25 sustained-release gabapentin 300 mg capsule 300 mg PO TID 01/14/20 01/04/25 hydrocodone 7.5 mg-acetaminophen 1 tab PO Q6H 01/14/20 01/04/25 325 mg tablet lamotrigine 25 mg tablet 75 mg PO BID@01/14/20 01/04/25 propafenone 225 mg tablet 225 mg PO TID 01/14/20 01/04/25 famotidine 20 mg tablet 20 mg PO DAILY 12/07/23 01/04/25 furosemide 20 mg tablet 20 mg PO DAILY 07/13/24 01/04/25 isosorbide mononitrate 30 mg 30 mg PO DAILY 07/13/24 01/04/25 tablet,extended release 24 hr rosuvastatin 10 mg tablet 10 mg PO BEDTIME 07/13/24 01/04/25 cetirizine 10 mg tablet 10 mg PO DAILY 01/04/25 01/04/25 levothyroxine 150 mcg tablet 150 mcg PO DAILY 01/04/25 01/04/25 losartan 25 mg tablet 25 mg PO DAILY 01/04/25 01/04/25 rivaroxaban 20 mg tablet (Xarelto) 20 mg PO DAILY 01/04/25 01/04/25 Previous Rx's ?Medication ?Instructions ?Recorded aspirin 81 mg tablet,delayed 81 mg PO DAILY #30 tabs 12/09/23 release (Adult Low Dose Aspirin) potassium chloride 10 mEq 10 meq PO DAILY #90 caps 08/07/24 capsule,extended release Allergies Allergy/AdvReac Type Severity Reaction Status Date / Time bacitracin (From Neosporin Allergy ALGY-Rash Verified 01/04/25 12:35 ([id number])) codeine Allergy ADR-Shakine Verified 01/04/25 12:35 ss neomycin (From Neosporin Allergy ALGY-Rash Verified 01/04/25 12:35 ([id number])) petrolatum,white (From Allergy ALGY-Rash Verified 01/04/25 12:35 Petroleum Jelly) polymyxin B (From Neosporin Allergy ALGY-Rash Verified 01/04/25 12:35 ([id number])) Review of Systems Const: Denies: fever(s), chills or body aches Eyes: Denies: change in vision or blurry vision Card: Denies: chest pain or palpitations Resp: Denies: dyspnea or productive cough GI: Reports: vomiting (One episode of vomiting on the second day of taking dicloxacillin, no blood); Denies: abdominal pain or nausea Musc: Reports: other (ingrown toenail L toe); Denies: neck pain, back pain or extremity pain Skin/Breast: Denies: rash Neuro: Reports: weakness in extremities, difficulty walking, dizziness, confusion, Slurred speech present and difficulty communicating thoughts; Denies: headache(s), numbness in extremities, sensory changes, lack of coordination, vertigo, behavioral changes or seizure-like activity PFS ED PFSH: Medical History Coronary vasospasm Elevated troponin BCC (basal cell carcinoma of skin) Carotid artery disease Hyperlipidemia Non-ST elevation AK (NSTEMI) History of nonmelanoma skin cancer Fibromyalgia Afib Sinus bradycardia Diverticulitis HTN (hypertension) Surgical History History of partial colectomy History of colonoscopy History of hysterectomy History of appendectomy Family History Other CAD (coronary artery disease) Social History Smoking and tobacco/nicotine status: never used tobacco/nicotine Alcohol intake: never Physical Exam Const: COMMON NORMALS: no acute distress, average body habitus, patient oriented x3, no limitations, alert and well nourished GENERAL APPEARANCE: cooperative NUTRITIONAL APPEARANCE: obese (BMI 44.4) ORIENTATION/CONSCIOUSNESS: Yes awake, Yes oriented to person, Yes oriented to place and Yes oriented to time HENMT: COMMON NORMALS: normocephalic and atraumatic HEAD & SCALP: normal to inspection, normocephalic and atraumatic FACE & SINUS: other (very mild facial asymmetry that she and daughter states is normal) TEETH & GINGIVA: Yes edentulous Eye: COMMON NORMALS: Equal, round and reactive pupils present and EOMs intact bilaterally GENERAL EYE: appearance normal, both eyes and all related structures and normal light reflex PUPIL: Yes Equal, round and reactive pupils present DIRECT OPHTHALMOSCOPY: Yes normal light reflex Neck/C-Spine: COMMON NORMALS: full ROM, no lymphadenopathy and no meningeal signs GENERAL: Yes normal visual inspection Chest: COMMONS NORMALS: normal inspection of the chest Resp: COMMON NORMALS: normal respiratory effort and clear to auscultation bilaterally EFFORT & INSPECTION: Yes able to speak in complete sentences AUSCULTATION: clear to auscultation bilaterally Cardio: COMMON NORMALS: regular rate and regular rhythm RATE: regular rate RHYTHM: regular rhythm Extremity: COMMON NORMALS: normal to inspection GENERAL: Yes normal exam except as noted Neuro: ALVARO COMA SCALE: document GCS findings Alvaro coma scale eye opening: Spontaneous [place] coma scale verbal response: Orientated [place] coma scale motor response: Obey commands Alvaro coma scale total score: 15 COMMON NORMALS: patient oriented x3, moves all extremities, no focal motor deficits and no sensory deficits noted SENSORIUM/ORIENTATION: Yes alert, Yes oriented to person, Yes oriented to place and Yes oriented to time MENINGEAL SIGNS: Yes no meningeal signs CRANIAL NERVES: Yes CN normal except as noted COORDINATION/BALANCE: [id number] test normal and [id number] test normal SPEECH: speech normal MOTOR EXAM: 5/5 motor strength present throughout COORDINATION: [id number] test normal and [id number] test normal OTHER: no acute neuro deficits appreciated; NIH 0; she has some very mild facial asymmetry that her and daughter states is normal; states she purposely does not wear dentures because of this because it makes her teeth look crooked Skin: COMMON NORMALS: no rashes or lesions noted and no wounds GENERAL SKIN EXAM: no rashes or lesions noted Course Vital Signs: Vital signs: Vital Signs Temperature 97.4 F L 01/04/25 12:24 Pulse Rate 60 01/04/25 12:24 Respiratory Rate 18 01/04/25 12:24 Blood Pressure 135/58 01/04/25 12:24 Pulse Oximetry 95 01/04/25 12:24 Oxygen Delivery Me thod Room Air 01/04/25 12:24 MDM - Altered Mental Status Medical Decision Making Patient here today has no acute neurologic deficits. I do not appreciate any abnormalities in her speech. NIH of 0. Blood work/UA/CXR normal. CT head showing no acute findings. Remtoe lacunar infarct. Will have her follow up with neurology as well as PCP. She is already taking a baby aspirin. Return precautions given. Medical Records I reviewed the patient's medical records. Lab Data I reviewed the patient's lab results. 01/04/25 13:04 01/04/25 13:[address] 01/04/25 12:40 IMPRESSION: 1. No acute intracranial hemorrhage or edema. 2. Remote lacunar infarct LEFT basal ganglia. 3. Stable Chiari I malformation. Laboratory Results WBC 7.35 10^3/uL (3.29-11.43) 01/04/25 13:04 RBC 3.92 10^6/uL (3.85-5.65) 01/04/25 13:04 Hgb 12.10 g/dL (11.27-16.99) 01/04/25 13:04 Hct 39.6 % (36-47) 01/04/25 13:04 MCV 101.0 fl (85-98) H 01/04/25 13:04 MCH 30.9 pg (27-33) 01/04/25 13:04 MCHC 30.6 g/dL (30-55) 01/04/25 13:04 RDW 13.5 % (12.1-15.1) 01/04/25 13:04 Plt Count 193 10^3/cmm (157-399) 01/04/25 13:04 MPV 9.1 fL (7.4-10.4) 01/04/25 13:04 Neut % (Auto) 43.4 % 01/04/25 13:04 Lymph % (Auto) 40.4 % 01/04/25 13:04 [place] % (Auto) 12.1 % 01/04/25 13:04 Eos % (Auto) 3.4 % 01/04/25 13:04 Baso % (Auto) 0.4 % 01/04/25 13:04 Neut # (Auto) 3.19 10^3/uL (1.8-7.7) 01/04/25 13:04 Lymph # (Auto) 3.0 10^3/uL (0.8-4.8) 01/04/25 13:04 [place] # (Auto) 0.9 10^3/uL (0.2-0.9) 01/04/25 13:04 Eos # (Auto) 0.3 10^3/uL (0.0-0.8) 01/04/25 13:04 Baso # (Auto) 0.0 10^3/uL (0.0-0.1) 01/04/25 13:04 Nucleated RBC % (auto) 0 % 01/04/25 13:04 Nucleated RBCs # 0.0 /100WBC 01/04/25 13:04 Sodium 139 mmol/L (136-145) 01/04/25 13:04 Potassium 3.8 mmol/L (3.5-5.1) 01/04/25 13:04 Chloride 104 mmol/L (98-107) 01/04/25 13:04 Carbon Dioxide 24 mmol/L (22-29) 01/04/25 13:04 Anion Gap 14.8 (5-19) 01/04/25 13:04 BUN 23 mg/dL (8-23) 01/04/25 13:04 Creatinine 1.1 mg/dL (0.5-0.9) H 01/04/25 13:04 GFR Calculation Not Reportable 01/04/25 13:04 Glucose 121 mg/dL (65-115) H 01/04/25 13:04 POC Glucose 123 mg/dL (70-110) H 01/04/25 12:30 Calculated Osmolality 293 mOsm/kg (285-295) 01/04/25 13:04 Calcium 8.8 mg/dL (8.5-10.5) 01/04/25 13:04 Total Bilirubin 0.2 mg/dL (0.15-1.2) 01/04/25 13:04 AST 12 U/L (0-32) 01/04/25 13:04 ALT 10 U/L (0-33) 01/04/25 13:04 Alkaline Phosphatase 87 U/L (35-105) 01/04/25 13:04 Total Protein 6.7 g/dL (6.6-8.7) 01/04/25 13:04 Albumin 3.8 g/dL (3.5-5.2) 01/04/25 13:04 Globulin 2.9 g/dL (1.3-4.6) 01/04/25 13:04 TSH 4.14 uIU/mL (0.27-4.20) 01/04/25 13:04 Urine Color Yellow (Yellow) 01/04/25 12:38 Urine Appearance Clear (CLEAR) 01/04/25 12:38 Urine pH 5.0 (5-7) 01/04/25 12:38 Ur Specific [place] 1.012 (1.005-1.030) 01/04/25 12:38 Urine Protein Negative (Negative) 01/04/25 12:38 Urine Glucose (UA) Negative (Normal) 01/04/25 12:38 Urine Ketones Negative (Negative) 01/04/25 12:38 Urine Blood Negative (Negative) 01/04/25 12:38 Urine Nitrate Negative (Negative) 01/04/25 12:38 Urine Bilirubin Negative (Negative) 01/04/25 12:38 Urine Urobilinogen 0.2 mg/dL (Negative) 01/04/25 12:38 Ur Leukocyte Esterase Negative (Negative) 01/04/25 12:38 Amorphous Sediment Not Reportable 01/04/25 12:38 Salicylates < 0.3 mg/dL (3-10) L 01/04/25 13:04 Urine Opiates Screen Positive ng/mL (Negative) H 01/04/25 12:38 Acetaminophen < 5.0 ug/mL (10-30) L 01/04/25 13:04 Ur Barbiturates Screen Negative ng/mL (Negative) 01/04/25 12:38 Ur Phencyclidine Scrn Negative ng/mL (Negative) 01/04/25 12:38 Ur Amphetamines Screen Negative ng/mL (Negative) 01/04/25 12:38 U Benzodiazepines Scrn Negative ng/mL (Negative) 01/04/25 12:38 Urine Cocaine Screen Negative ng/mL (Negative) 01/04/25 12:38 U Marijuana (THC) Screen Negative ng/mL (Negative) 01/04/25 12:38 All radiology interpretation(s) finalized by discharge Discharge Plan Discharge Patient Disposition: Home Clinical Impression: Mild cognitive impairment of uncertain or unknown etiology Condition: Stable Prescriptions: No Action potassium chloride 10 mEq capsule, extended release 10 meq PO DAILY Qty: 90 3RF bupropion HCl 150 mg tablet sustained-release 12 hr 150 mg PO DAILY@2100 lamotrigine 25 mg tablet 75 mg PO BID@09, propafenone 225 mg tablet 225 mg PO TID hydrocodone-acetaminophen 7.5-325 mg tablet 1 tab PO Q6H gabapentin 300 mg capsule 300 mg PO TID famotidine 20 mg tablet 20 mg PO DAILY aspirin [Adult Low Dose Aspirin] 81 mg tablet,delayed release (DR/EC) 81 mg PO DAILY Qty: 30 0RF levothyroxine 150 mcg tablet 150 mcg PO DAILY losartan 25 mg tablet 25 mg PO DAILY Xarelto 20 mg tablet 20 mg PO DAILY cetirizine 10 mg tablet 10 mg PO DAILY rosuvastatin 10 mg tablet 10 mg PO BEDTIME isosorbide mononitrate 30 mg tablet extended release 24 hr 30 mg PO DAILY furosemide 20 mg tablet 20 mg PO DAILY Discharge Orders: Discharge ED (Routine); Ordered 01/04/25 Ordered By: Lindsay Donovan Referrals: Socorro Schrader FNP [Primary Care Provider] - Patient Instructions: Altered Mental Status (ED) Activity Restrictions/Additional Instructions: As we discussed, I will place a referral to get you set up with neurology for further evaluation. I would also like you to follow-up with primary care in the meantime. Monitor symptoms closely. You may return to the emergency department for any further concerns you may have. Print Language: [place] Coding Level of Care Code ED [employer] Specialist for Bella Leon
[2025-01-04 13:30] LABS: Basophils % 0.4 %; Eosinophils # 0.3 10^3/uL (0.0-0.8); Eosinophils % 3.4 %; Hematocrit 39.6 % (36-47); Lymphocytes % 40.4 %; Mean Corpuscular HGB Conc 30.6 g/dL (30-55); Mean Corpuscular Hemoglobin 30.9 pg (27-33); Mean Platelet Volume 9.1 fL (7.4-10.4); Monocytes # 0.9 10^3/uL (0.2-0.9); Monocytes % 12.1 %; Neutrophils # 3.19 10^3/uL (1.8-7.7); Neutrophils % 43.4 %; Nucleated Red Blood Cells % 0 %; Platelet Count 193 10^3/cmm (157-399); Red Blood Count 3.92 10^6/uL (3.85-5.65); Red Cell Distribution Width 13.5 % (12.1-15.1); White Blood Count 7.35 10^3/uL (3.29-11.43)
[2025-01-04 13:32] LABS: Add Urine Microscopic? NO
[2025-01-04 13:40] LABS: Bilirubin Urine Negative (Negative); Blood Urine Negative (Negative); Glucose Urine UA Negative (Normal); Ketones Urine Negative (Negative); Leukocyte Esterase Urine Negative (Negative); Nitrate Urine Negative (Negative); Protein Urine Negative (Negative); Specific Gravity, Urine 1.012 (1.005-1.030); Urine Appearance Clear (CLEAR); Urine Color Yellow (Yellow); Urobilinogen Urine 0.2 mg/dL (Negative)
[2025-01-04 13:46] LABS: Amphetamines Screen Urine Negative (Negative); Barbiturates Screen Urine Negative (Negative); Benzodiazepines Screen Urine Negative (Negative); Charge for UA Resulting for Rev; Cocaine Screen Urine Negative (Negative); Opiate Screen Urine Positive (Negative); PCP Screen Urine Negative (Negative); THC Screen Urine Negative (Negative)
[2025-01-04 13:56] LABS: Alanine Aminotransferase 10 U/L (0-33); Albumin Level 3.8 g/dL (3.5-5.2); Alkaline Phosphatase 87 U/L (35-105); Anion Gap 14.8 (5-19); Aspartate Amino Transferase 12 U/L (0-32); Blood Urea Nitrogen 23 mg/dL (8-23); Calcium 8.8 mg/dL (8.5-10.5); Carbon Dioxide 24 mmol/L (22-29); Chloride 104 mmol/L (98-107); Creatinine Clr Calc Pharmacy 57.7929; Globulin 2.9 g/dL (1.3-4.6); Glucose 121 mg/dL (65-115); Osmolality Calculated 293 mOsm/kg (285-295); Potassium 3.8 mmol/L (3.5-5.1); Sodium 139 mmol/L (136-145); Thyroid Stimulating Hormone 4.14 uIU/mL (0.27-4.20); Total Bilirubin 0.2 mg/dL (0.15-1.2); Total Protein 6.7 g/dL (6.6-8.7)
[2025-01-04 13:59] LABS: Salicylate < 0.3 mg/dL (3-10)
[2025-01-04 14:00] LABS: Acetaminophen < 5.0 ug/mL (10-30)
[2025-01-04 14:52] VITALS: BP 124/36; PULSE 54; O2SAT 93
--- NOTE | 2025-01-04 15:21 | DCPLANNER ---
messaged neuro for er f/u
== END 2025-01-04 14:53 | disposition home or self-care (01) ==
PROVIDERS: Emergency Provider Physician Assistant; PCP Nurse Practitioner Family
DX: G31.84 Mild cognitive impairment of uncertain or unknown etiology (principal); I10 Essential (primary) hypertension; Z85.828 Personal history of other malignant neoplasm of skin
CPT/HCPCS: 36415; 36416; 70450; 71045; 80053; 80306; 80307; 81003; 82962; 84443; 85025; 99284

== ENCOUNTER → 2025-01-25 10:49 | Outpatient (BNVA) | payer MEDICARE, MEDICAID, SELFPAY | PROVIDERS: PCP Nurse Practitioner Family; Visit Provider Podiatrist Foot & Ankle Surgery | DX: L60.0 Ingrowing nail (principal); L03.032 Cellulitis of left toe | CPT/HCPCS: 11750; 99204; J9999 ==

== ENCOUNTER → 2025-02-12 10:18 | Outpatient (BNVA) | payer MEDICARE, MEDICAID, SELFPAY | PROVIDERS: PCP Nurse Practitioner Family; Visit Provider Podiatrist Foot & Ankle Surgery | DX: L60.8 Other nail disorders (principal); L60.0 Ingrowing nail; L03.032 Cellulitis of left toe | CPT/HCPCS: 99214 ==

== ENCOUNTER → 2025-03-05 10:35 | Outpatient (BNVA) | payer MEDICARE, MEDICAID, SELFPAY | PROVIDERS: PCP Nurse Practitioner Family; Visit Provider Podiatrist Foot & Ankle Surgery | DX: L60.8 Other nail disorders (principal); L60.0 Ingrowing nail; L03.032 Cellulitis of left toe | CPT/HCPCS: 99213 ==

== ENCOUNTER → 2025-04-11 09:47 | Outpatient (BNVA) | payer MEDICARE, MEDICAID, SELFPAY | PROVIDERS: PCP Nurse Practitioner Family; Referring Provider Physician Assistant; Visit Provider Psychiatry & Neurology Neurology | DX: R41.3 Other amnesia (principal); E55.9 Vitamin D deficiency, unspecified; M54.2 Cervicalgia; R41.0 Disorientation, unspecified; R29.818 Other symptoms and signs involving the nervous system; G93.5 Compression of brain; R29.6 Repeated falls; G93.9 Disorder of brain, unspecified | CPT/HCPCS: 99203 ==

== ENCOUNTER 2025-04-11 11:18 | Outpatient (CLI) | payer MEDICARE, SELFPAY | END 2025-04-11 11:19 | disposition home or self-care (01) | LOC: LAB 04-15 07:21 | PROVIDERS: PCP Nurse Practitioner Family; Visit Provider Psychiatry & Neurology Neurology | DX: G31.84 Mild cognitive impairment of uncertain or unknown etiology (principal); E55.9 Vitamin D deficiency, unspecified | CPT/HCPCS: 36415; 82306; 82565; 82607; 82746; 83921; 86780 ==

== ENCOUNTER 2025-05-07 11:05 | Outpatient (CLI) | payer MEDICARE, MEDICAID, SELFPAY ==
--- NOTE | 2025-05-07 11:00 | MR_ITS ---
WS: [id number] MRA CAROTID WITHOUT AND WITH GADOLINIUM ENHANCEMENT TECHNIQUE: Axial 2-D TOF and gadolinium bolus images obtained with axial images and axial, sagittal, and coronal 2-D reformatted images. CLINICAL INFORMATION: G31.84 - Mild cognitive impairment of uncertain or unknow... COMPARISON: None. FINDINGS: RIGHT: RIGHT common carotid artery is patent. Less than 50% RIGHT ICA stenosis. RIGHT ICA is patent to the skull base. LEFT: LEFT common carotid artery is patent. Less than 50% LEFT ICA stenosis. LEFT ICA is patent to the skull base. Retropharyngeal course of the LEFT cervical ICA. RIGHT dominant vertebral artery. Smaller but patent LEFT vertebral artery. Proximal basilar artery is patent. Images are degraded at the thoracic inlet due to shoulder overlap Proximal subclavian arteries are patent. MR/MR angio neck w con* [id number] IMPRESSION: Images at the thoracic inlet are degraded due to shoulder overlap 1. Less than 50% ICA stenosis bilaterally. 2. RIGHT dominant vertebral artery. Smaller but patent LEFT vertebral artery. 3. No other acute findings.
--- NOTE | 2025-05-07 11:45 | MR_ITS ---
WS: [id number] MR CERVICAL SPINE WO/W HISTORY: G31.84 - Mild cognitive impairment of uncertain or unknow... TECHNIQUE: Sagittal T1, T2 and T2 inversion recovery; axial T2, T2 gradient and fiesta. Post gadolinium imaging with fat saturation technique. FINDINGS: Straightening of the normal cervical lordosis. No high grade central canal narrowing. Cord signal is normal. No abnormal gadolinium enhancement. Disc osteophyte protrusions worse at C5-C6 and C6-C7 with mild central canal stenosis. Slight indentation cervical cord. C2-3: Mild facet arthropathy. Mild RIGHT bony foraminal narrowing. C3-4: Mild facet arthropathy. Uncovertebral joint hypertrophy. Mild bilateral bony foraminal narrowing. C4-5: Disc osteophyte complex with endplate ridging. Moderate facet arthropathy. Moderate RIGHT and mild LEFT bony foraminal narrowing. Spinal canal is patent. Slight narrowing of the RIGHT subarticular recess with protruding osteophyte.. C5-6: LEFT paracentral disc osteophyte protrusion with indentation on the LEFT ventral cervical cord. Mild central canal stenosis. Moderate to severe bilateral bony foraminal narrowing. Moderate facet arthropathy. Uncovertebral joint hypertrophy. C6-7: Slight anterolisthesis. Disc osteophyte complex with endplate ridging. Mild central canal stenosis. Severe LEFT and moderate RIGHT bony foraminal narrowing. Mild facet arthropathy with uncovertebral joint hypertrophy. C7-T1: Slight anterolisthesis. Spinal canal and foramen are patent. Mild facet arthropathy. MR/MR cervical spine wo/w [id number] IMPRESSION: 1. Cord signal is normal. No abnormal gadolinium enhancement. 2. Disc osteophyte protrusion C5-C6 and C6-C7 with mild central canal stenosis and slight indentation of the cervical cord 3. Moderate to severe bony foraminal narrowing worse at bilateral C5-C6 and LE FT C6-7. 4. Slight bony narrowing of the RIGHT C4-5 subarticular recess with moderate R IGHT foraminal narrowing.
[2025-05-07] MEDS: gadobenate dimeglumine 20 mL vial IV (12:14)
== END 2025-05-07 11:06 | disposition home or self-care (01) ==
LOC: RAD 11:07
PROVIDERS: PCP Nurse Practitioner Family; Visit Provider Psychiatry & Neurology Neurology
DX: M50.222 Other cervical disc displacement at C5-C6 level (principal); M50.223 Other cervical disc displacement at C6-C7 level; M48.02 Spinal stenosis, cervical region; I65.23 Occlusion and stenosis of bilateral carotid arteries
CPT/HCPCS: 70548; 72156

== ENCOUNTER 2025-05-09 10:49 | Outpatient (CLI) | payer MEDICARE, SELFPAY ==
--- NOTE | 2025-05-09 11:00 | MR_ITS ---
WS: [id number] MRA HEAD TECHNIQUE: Axial 3-D TOF images obtained with axial images and axial, sagittal, and coronal 2-D reformatted images. CLINICAL INFORMATION: G31.84 - Mild cognitive impairment of uncertain or unknow... COMPARISON: CT 01/04/2025 FINDINGS: Basilar artery is patent. Persistent LEFT DISPENSARY CLERK. Normal vascularity to the DISPENSARY CLERK territory bilaterally. Mild intracranial atheromatous disease. Both ICAs are patent at the skull base. Normal vascularity to the KUNAL and MCA territories bilaterally. No evidence of proximal flow-limiting stenosis. No other acute findings Small lipoma near the interpeduncular cistern unchanged since the prior CT. MR/MR angio head wo con [id number] IMPRESSION: 1. Mild intracranial atheromatous disease. 2. No proximal flow-limiting stenosis. 3. Otherwise unremarkable intracranial MRA.
--- NOTE | 2025-05-09 11:15 | MR_ITS ---
WS: [id number] MRI HEAD WITH CONTRAST TECHNIQUE: Sagittal T1, T2 axial, T2 axial FLAIR, axial susceptibility weighted imaging, axial diffusion weighted images, and coronal T2 images were obtained. Pre and post-T1 axial and post T1 coronal images. ADC and FSPGR images. CLINICAL INFORMATION: G31.84 - Mild cognitive impairment of uncertain or unknow... COMPARISON: CT 01/04/2025 and MRI 2012 FINDINGS: No evidence of restricted diffusion to suggest acute ischemia. Ventricular system and basal cisterns are patent. Mild small vessel changes. Mild parenchymal volume loss. Small vessel changes in the nicolasa. Normal posterior fossa. Normal vascular flow voids at the skull base. No extra- axial fluid collections. Paranasal sinuses and mastoid air cells are well aerated. Normal posterior nasopharynx. No hemosiderin on the susceptibility weighted images. Chronic lacunar infarct or paravascular space LEFT inferior basal ganglia. Normal optic chiasm and pituitary infundibulum. Temporal lobes and hippocampal formations are normal in appearance. No hemosiderin on the susceptibility weighted images. No abnormal gadolinium enhancement. No other suspicious findings. Small incidental lipoma near the hypothalamus at the interpeduncular cistern unchanged since 2012. Slightly low-lying cerebellar tonsils. MR/MR head wo/w con [id number] IMPRESSION: 1. No evidence of restricted diffusion to suggest acute ischemia. 2. Mild small vessel changes. Mild parenchymal volume loss. Small vessel koehler es in the nicolasa. Small vessel changes progressed since 2012. Mild parenchymal vo lume loss. 3. No abnormal gadolinium enhancement. 4. Temporal lobes and hippocampal formations are normal in appearance. 5. No hemosiderin on susceptibility-weighted images. 6. Tiny 3 mm hypothalamic lipoma unchanged since 2012
[2025-05-09] MEDS: gadobenate dimeglumine 20 mL vial IV (11:46)
== END 2025-05-09 10:50 | disposition home or self-care (01) ==
LOC: RAD 10:49
PROVIDERS: PCP Nurse Practitioner Family; Visit Provider Psychiatry & Neurology Neurology
DX: I67.2 Cerebral atherosclerosis (principal)
CPT/HCPCS: 70544; 70553; A9577

== ENCOUNTER → 2025-05-17 13:43 | Outpatient (BNVA) | payer MEDICARE, SELFPAY | PROVIDERS: PCP Nurse Practitioner Family; Visit Provider Orthopaedic Surgery | DX: M43.16 Spondylolisthesis, lumbar region (principal); M48.02 Spinal stenosis, cervical region; M54.10 Radiculopathy, site unspecified; M54.50 Low back pain, unspecified | CPT/HCPCS: 72110; 99204 ==

== ENCOUNTER → 2025-05-22 13:04 | Outpatient (BNVA) | payer MEDICARE, SELFPAY | PROVIDERS: PCP Nurse Practitioner Family; Referring Provider Psychiatry & Neurology Neurology; Visit Provider Psychiatry & Neurology Neurology | DX: R56.9 Unspecified convulsions (principal) | CPT/HCPCS: 95813 ==

== ENCOUNTER → 2025-05-23 12:58 | Outpatient (BNVA) | payer MEDICARE, MEDICAID, SELFPAY | PROVIDERS: PCP Nurse Practitioner Family; Visit Provider Psychiatry & Neurology Neurology | DX: R41.0 Disorientation, unspecified (principal); G47.30 Sleep apnea, unspecified; R29.818 Other symptoms and signs involving the nervous system; G93.5 Compression of brain; R29.6 Repeated falls; G93.9 Disorder of brain, unspecified | CPT/HCPCS: 99212 ==

== ENCOUNTER → 2025-07-12 14:09 | Outpatient (BNVA) | payer MEDICARE, SELFPAY | PROVIDERS: PCP Nurse Practitioner Family; Visit Provider Orthopaedic Surgery | DX: M48.02 Spinal stenosis, cervical region (principal); M54.10 Radiculopathy, site unspecified; M43.16 Spondylolisthesis, lumbar region; Z01.818 Encounter for other preprocedural examination | CPT/HCPCS: 36415; 80053; 81001; 85025; 99214 ==

== ENCOUNTER → 2025-07-27 10:43 | Outpatient (BNVA) | payer MEDICARE, SELFPAY | PROVIDERS: PCP Nurse Practitioner Family; Visit Provider Family Medicine | DX: Z01.818 Encounter for other preprocedural examination (principal); R00.1 Bradycardia, unspecified | CPT/HCPCS: 93005 ==

== ENCOUNTER 2025-08-10 06:48 | Day surgery (SDC) | payer MEDICARE, SELFPAY ==
[2025-08-10] VITALS (12 sets, daily range): BP systolic 110–181; BP diastolic 53–81; PULSE 56–77; RESP 14–21; TEMP 36.1–36.2; O2SAT 92–99; BMI 43.9
--- NOTE | 2025-08-10 07:51 | W.PM.OPSUD ---
Surgery/Procedure H&P Update DATE OF PROCEDURE: August 10, 2025 DATE H&P PERFORMED: 07/12/25 H&P UPDATE INFORMATION: I have reviewed H&P completed within last 30 days, I have examined patient prior to procedure and No changes to prior documentation PREOP DIAGNOSIS: Lumbar stenosis with neurogenic claudication PLANNED PROCEDURE: Operation Date: 08/10/25 08:20 Proposed Procedures p Lumbar Spine Decompression(Not Applicable) - Chepe Saavedra DO
--- NOTE | 2025-08-10 07:58 | ANES.PREANE2 ---
Pre-Anesthetic Assessment Height/Weight: Height 1.68 m Weight 123.377 kg Temp Pulse Resp BP Pulse Ox O2 Del Method 97.2 F L 56 L 18 157/75 95 Room Air 08/10/25 07:26 08/10/25 07:26 08/10/25 07:26 08/10/25 07:26 08/10/25 07:26 08/10/25 07:26 Preop Diagnosis: Lumbar stenosis with neurogenic claudication Operation Date: 08/10/25 08:20 Proposed Procedures p Lumbar Spine Decompression(Not Applicable) - Chepe Saavedra, DO Familial anesthetic complications: none Was Beta Angela taken within 24 hours: N/A Was Clonidine taken within 24 hours: N/A Last intake: Intake Last Liquid Date 08/09/25 Last Liquid Time 20:00 Last Solid Date 08/09/25 Last Solid Time 20:00 Social No alcohol and No tobacco Exam alert, oriented x 3, clear to auscultation bilaterally and regular rate & rhythm Airway Submandibular: Other (retognathia) Cervical ROM: within normal limits Mallampati: Class II Dentition: false Pulmonary None reported CV/HEM Atrial Fibrillation, Hypertension (on losartan) and Myocardial Infarction Xarelto last taken Wednesday, most recent echo EF45%, last stress test negative, pt. states she is not active, last seen cardiology about 10months ago. EKG from 07/26/25 shows sinus holger, Q waves in V3/V4 (probably old). None reported Hepatic None reported GI None reported Metabolic Morbid Obesity and Thyroid Disease Musc/skel Lower Back Pain and Osteoarthritis/DJD Neuropsych Dementia (mild cognitive impairment) EMR shows brain lesion, chiari malformation, patient and family deny any issues, states she saw neurologist and he said there was no lesion. Anesthetic Plan ASA status: 3 Anesthesia: General Risk of > 500 ml blood loss (7ml/kg in children): No Medications/Allergies Home Medications ?Medication ?Instructions ?Recorded ?Confirmed ?Last Taken ?Type bupropion HCl 150 mg tablet,12 hr 150 mg PO DAILY@2100 01/14/20 08/08/25 08/09/25 History sustained-release gabapentin 300 mg capsule 300 mg PO TID 01/14/20 08/08/25 08/09/25 History lamotrigine 25 mg tablet 75 mg PO BID@09,21 01/14/20 08/08/25 08/09/25 History propafenone 225 mg tablet 225 mg PO TID 01/14/20 08/08/25 08/09/25 History famotidine 20 mg tablet 20 mg PO DAILY 12/07/23 08/08/25 08/09/25 History aspirin 81 mg tablet,delayed 81 mg PO DAILY #30 tabs 12/09/23 08/08/25 08/05/25 Rx release (Adult Low Dose Aspirin) furosemide 20 mg tablet 20 mg PO DAILY 07/13/24 08/08/25 08/08/25 History rosuvastatin 10 mg tablet 10 mg PO BEDTIME 07/13/24 08/08/25 08/09/25 History potassium chloride 10 mEq 10 meq PO DAILY #90 caps 08/07/24 08/08/25 08/09/25 Rx capsule,extended release cetirizine 10 mg tablet 10 mg PO DAILY 01/04/25 08/08/25 08/08/25 History losartan 25 mg tablet 25 mg PO DAILY 01/04/25 08/08/25 08/09/25 History rivaroxaban 20 mg tablet (Xarelto) 20 mg PO DAILY 01/04/25 08/08/25 08/07/25 History mecobalamin (vitamin B12) 1,000 1,000 mcg PO DAILY 04/11/25 08/08/25 08/09/25 History mcg chewable tablet cholecalciferol (vitamin D3) 1,250 50,000 unit PO Q7D #12 caps 05/15/25 08/08/25 08/09/25 Rx mcg (50,000 unit) capsule levothyroxine 50 mcg tablet 50 mcg PO QDAY 07/27/25 08/08/25 08/09/25 History hydrocodone 7.5 mg-acetaminophen 1 tab PO Q6H pain 08/08/25 08/08/25 08/10/25 History 325 mg tablet isosorbide mononitrate 30 mg 30 mg PO DAILY 08/08/25 08/08/25 08/09/25 History tablet,extended release 24 hr Allergies Allergy/AdvReac Type Severity Reaction Status Date / Time bacitracin (From Neosporin Allergy ALGY-Rash Verified 08/07/25 13:47 ([id number])) codeine Allergy ADR-Shakine Verified 08/07/25 13:47 ss neomycin (From Neosporin Allergy ALGY-Rash Verified 08/07/25 13:47 ([id number])) petrolatum,white (From Allergy ALGY-Rash Verified 08/07/25 13:47 Petroleum Jelly) polymyxin B (From Neosporin Allergy ALGY-Rash Verified 08/07/25 13:47 ([id number])) Current Medications Generic Name Dose Route Start Last Admin Trade Name Freq PRN Reason Stop Dose Admin Sodium Chloride 1,000 mls @ 30 mls/hr 08/10/25 07:15 08/10/25 07:52 Sodium Chloride 0.9% IV 08/11/25 07:14 30 mls/hr .Q24H TORREY Administration PFSH Anesthesia Medical History Coronary vasospasm Elevated troponin BCC (basal cell carcinoma of skin) Carotid artery disease Hyperlipidemia Non-ST elevation [place] (NSTEMI) History of nonmelanoma skin cancer Fibromyalgia Afib Sinus bradycardia Diverticulitis HTN (hypertension) Surgical History History of partial colectomy History of colonoscopy History of hysterectomy History of appendectomy Family History Other CAD (coronary artery disease) Social History Smoking and tobacco/nicotine status: never used tobacco/nicotine Alcohol intake: never Data Anesthesia Cardiac Studies: Echocardiogram 12/07/23 Echocardiogram Ultrasound 02/07/21 Sestamibi Stress Test (Cardiology) 12/08/23
[2025-08-10] MEDS: ceFAZolin 2,000 mg SDV 2000 MG IVP (08:03)
[2025-08-10] MEDS: lidocaine-epi 1% PF 1:200,000 30 mL SDV INJECTION (08:26)
--- NOTE | 2025-08-10 09:23 | XR_ITS ---
WS: [id number] C-ARM RADIOGRAPHS LUMBAR SPINE; 3 IMAGES HISTORY: OR PICS COMPARISON: 05/17/2025 Intraoperative imaging during lumbar fusion. No lateralization on the imaging submitted. There is an intraoperative marker at several locations. XR/XR lumbar spine 2-3V* [id number] IMPRESSION: Intraoperative imaging during lumbar fusion.
--- NOTE | 2025-08-10 09:37 | P.OP_ITS ---
Operative Report Date of procedure: August 10, 2025 Pre-op diagnosis: Lumbar stenosis with neurogenic claudication Post-op diagnosis: same Procedure done: 1. L3/4 laminectomy with partial facetectomy 2. L4/5 laminectomy with partial facetectomy Surgeon: Chepe Saavedra DO Estimated blood loss (mL): 10 Procedure: 1. L3/4 laminectomy with partial facetectomy 2. L4/5 laminectomy with partial facetectomy Patient is brought to the operative suite. After undergoing anesthesia they are placed in the prone position. All areas of impingement are well padded. Patient is then prepped and draped in the normal sterile fashion. A skin incision is made over the L3/4 level. This is confirmed under c-arm guidance. A series of dilators are passed and the tubular retractor is docked on the L3 lamina. A bovie is used to clear the soft tissue off the lamina and the L 3/4 facet joint. A high speed verona is then used to perform the laminectomy and take down the medial aspect of the L 3/4 facet joint. A kerrison rongeure was then used to take down the remaining lamina and smooth the edge of the laminectomy up to the point where the ligamentum flavum attaches. Attention was then brought to the medial aspect of the facet joint. The remaining medial aspect of the superior and inferior aspect of the facet joint were taken down with the kerrison from the pedicle of L3 to L 4. The facet joint had significant hypertrophy. Attention was then brought to the Ligamentum Flavum. The ligament was taken down from the lamina of L3 to L4 and out medially to the remaining facet joint. The ligament was thick. The dura was then exposed. The dura was in good repair. The L3 nerve was then traced with a curette out the L 3/4 foramen and found to be adequately decompressed. The L4 nerve was traced with a curette around the L4 pedicle. The lateral recess was opened with a kerrison helping to further decompress the L4 nerve. Wound is then irrigated copiously with saline and surgiflo is used to stop any bleeding. The tubular retractor is removed A skin incision is made over the L4/5 level. This is confirmed under c-arm guidance. A series of dilators are passed and the tubular retractor is docked on the L4/5 lamina. A bovie is used to clear the soft tissue off the lamina and the L4/5 facet joint. A high speed verona is then used to perform the laminectomy and take down the medial aspect of the L4/5 facet joint. A kerrison rongeure was then used to take down the remaining lamina and smooth the edge of the laminectomy up to the point where the ligamentum flavum attaches. Attention was then brought to the medial aspect of the facet joint. The remaining medial aspect of the superior and inferior aspect of the facet joint were taken down with the kerrison from the pedicle of L4 to L 5. The facet joint had significant hypertrophy. Attention was then brought to the Ligamentum Flavum. The ligament was taken down from the lamina of L4 to L5 and out medially to the remaining facet joint. The ligament was thick. The dura was then exposed. The dura was in good repa ir. The L4 nerve was then traced with a curette out the L4/5 foramen and found to be adequately decompressed. The L5 nerve was traced with a curette around the L5 pedicle. The lateral recess was opened with a kerrison helping to further decompress the L5 nerve. Wound is then irrigated copiously with saline and surgiflo is used to stop any bleeding. The tubular retractor is removed and the wound is closed with vicryl and monocryl suture. Steri strips were applied. A sterile dressing is then placed. Patient was then placed in the supine position and transferred to the PACU in stable condition.
[2025-08-10] MEDS: ondansetron 2 mg/ML SDV 2 mL 4 MG IVP (09:45)
[2025-08-10] MEDS: HYDROcodone-acetaminophen 7.5-325 mg Tablet 1 TAB PO (10:27)
--- NOTE | 2025-08-10 11:35 | ANE.PACU2 ---
Inpatient post-anesthesia follow up: Airway intact: Yes Vital signs: Temperature 97 F Pulse Rate 61 Respiratory Rate 16 Blood Pressure 147/53 Pulse Oximetry 93 Oxygen Delivery Me thod Room Air Oxygen Flow Rate 1 Fraction of Inspir ed Oxygen Hydration adequate: Yes Nausea and vomiting: No Pain level: 1 Mental status: Baseline
--- NOTE | 2025-08-10 13:34 | SUR.PHASEII ---
Patient filled hydro rx for 30 days on july 20. Pharmacy will not fill new rx today. 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
== END 2025-08-10 11:37 | disposition home or self-care (01) ==
PROVIDERS: PCP Nurse Practitioner Adult Health; Visit Provider Orthopaedic Surgery
PROC: (CPT 63005; principal; 2025-08-10 08:10)
DX: M48.062 Spinal stenosis, lumbar region with neurogenic claudication (principal); I48.91 Unspecified atrial fibrillation; I10 Essential (primary) hypertension; I25.2 Old myocardial infarction; E66.01 Morbid (severe) obesity due to excess calories; Z68.41 Body mass index [BMI] 40.0-44.9, adult; E07.9 Disorder of thyroid, unspecified; E78.5 Hyperlipidemia, unspecified; C44.91 Basal cell carcinoma of skin, unspecified; R00.1 Bradycardia, unspecified; M79.7 Fibromyalgia; Z79.82 Long term (current) use of aspirin; Z79.891 Long term (current) use of opiate analgesic
CPT/HCPCS: 63047; 63048; 72100; 76000; J0690; J1100; J2405; J2704; J3010; J3490; J7030; J9999

== ENCOUNTER → 2025-09-20 10:59 | Outpatient (BNVA) | payer MEDICARE, SELFPAY | PROVIDERS: PCP Nurse Practitioner Adult Health; Visit Provider Orthopaedic Surgery | DX: Z98.890 Other specified postprocedural states (principal) | CPT/HCPCS: 99024 ==